=== PATIENT | male | born 2000 | race African-American/Black ===

== ENCOUNTER 2023-01-01 08:04 | Inpatient (IN) ==
[2023-01-01] MEDS ORDERED: ONDANSETRON INJ 2 MG/ML 2 ML VIAL IV STA (08:20)
[2023-01-01] MEDS ORDERED: MoRPHine SULFATE 4 MG/ML 1 ML CARP\\VIAL IV STA (08:20)
--- NOTE | 2023-01-01 08:20 | Emergency Department Note ---
History of Present Illness General Chief complaint: Abdominal Pain Stated complaint: PAIN LOWER L ABDOMIN Time Seen by Provider: 01/01/23 08:14 History of Present Illness Maximum Pain Intensity: 6 This is a 22-year-old male with a history of sickle cell disease that presents to the emergency department via private vehicle with complaints of "left upper quadrant abdominal pain". The patient notes he began with abdominal pain yesterday. No known trauma or injury. No history of abdominal surgeries. Patient denies any fevers or chills. He does note some minor discomfort to the chest area. No shortness of breath. Patient notes that generally he will experience discomfort in his joints/extremities but has never had abdominal pain. Current pain 6-7/10 when he sits up and about a 3-4/10 when he is lying on his side. Patient does note he previously has followed with hematology at [facility] in the [place] area. Home Medications Medication Instructions Recorded Confirmed Type oxycodone 5 mg tablet 5 - 10 mg PO Q4H PRN pain #14 tabs 06/19/22 01/01/23 Rx albuterol sulfate 90 mcg/actuation 2 puff inhalation Q6H PRN 01/01/23 01/01/23 History aerosol inhaler Shortness Of Breath Or Wheezing fluticasone propionate 50 2 spray intranasal DAILY PRN 01/01/23 01/01/23 History mcg/actuation nasal allergies spray,suspension folic acid 1 mg tablet 1 mg PO DAILY 01/01/23 01/01/23 History methylphenidate HCl 10 mg tablet 10 mg PO UD 01/01/23 01/01/23 History methylphenidate HCl 36 mg 36 mg PO UD 01/01/23 01/01/23 History tablet,extended release 24 hr montelukast 10 mg tablet 10 mg PO DAILY 01/01/23 01/01/23 History Allergies Allergy/AdvReac Type Severity Reaction Status Date / Time No Known Allergies Allergy Unverified 01/01/23 09:58 Past Med/Surg History Medical History Asthma Sickle cell disease Surgical History (Updated 01/01/23 @ 15:21 by Janis Cota PA-C) No pertinent past surgical history Family History Other Deep vein thrombosis Social History Smoking Status: Never smoker Hx Alcohol Use: Yes Alcohol type: hard liquor Alcohol Intake Frequency: 2-4 x/Month Hx Substance Use: No Preferred Language: Maltese Ham Facer Required: No Beliefs That Will Affect Care: None Current Living Situation: Other current occupational status: student Feels Safe at Home: Yes Safety Concerns: Feels Safe At This Time Assistive Devices: Glasses Review of Systems A total of 10 systems reviewed and were otherwise negative Physical Exam Vital Signs Vital Signs - 24 hr 01/01/23 08:09 01/01/23 08:57 01/01/23 08:57 Temperature 37.5 C Temperature Source Temporal Artery Scan Pulse Rate 107 H 87 Pulse Rate [Apical] 87 Pulse Rate from SpO2 Sensor Pulse Rhythm [Apical] Pulse Strength [Apical] Respiratory Rate 18 22 22 Respiratory Effort / Characteristics Non-Labored Non-Labored Spontaneous Respiratory Depth Normal Normal Respiratory Pattern Regular Blood Pressure 129/70 Blood Pressure [Right Arm] 141/90 H Blood Pressure Mean 89 Blood Pressure Mean [Right Arm] 107 Blood Pressure Position [Right Arm] Sitting Pulse Oximetry 96 92 92 Oxygen Delivery Method Room Air Room Air Room Air Sepsis Recent Fever Within 48 Hours No Sepsis New/Unexplained Change in Mental Status No Sepsis Action Taken by Nursing No Action Required 01/01/23 09:12 01/01/23 09:01 01/01/23 09:30 Temperature Temperature Source Pulse Rate 84 84 Pulse Rate [Apical] Pulse Rate from SpO2 Sensor 85 Pulse Rhythm [Apical] Pulse Strength [Apical] Respiratory Rate 18 Respiratory Effort / Characteristics Respiratory Depth Respiratory Pattern Blood Pressure 119/68 Blood Pressure [Right Arm] Blood Pressure Mean 85 Blood Pressure Mean [Right Arm] Blood Pressure Position [Right Arm] Pulse Oximetry 95 Oxygen Delivery Method Sepsis Recent Fever Within 48 Hours Sepsis New/Unexplained Change in Mental Status Sepsis Action Taken by Nursing 01/01/23 09:30 01/01/23 10:00 01/01/23 10:00 Temperature Temperature Source Pulse Rate 87 95 H Pulse Rate [Apical] Pulse Rate from SpO2 Sensor 88 97 H Pulse Rhythm [Apical] Pulse Strength [Apical] Respiratory Rate 14 16 Respiratory Effort / Characteristics Respiratory Depth Respiratory Pattern Blood Pressure 128/86 Blood Pressure [Right Arm] Blood Pressure Mean 100 Blood Pressure Mean [Right Arm] Blood Pressure Position [Right Arm] Pulse Oximetry 93 95 Oxygen Delivery Method Sepsis Recent Fever Within 48 Hours Sepsis New/Unexplained Change in Mental Status Sepsis Action Taken by Nursing 01/01/23 11:13 01/01/23 10:10 01/01/23 10:20 Temperature 36.8 C Temperature Source Oral Pulse Rate 90 99 H Pulse Rate [Apical] 90 Pulse Rate from SpO2 Sensor 88 101 H Pulse Rhythm [Apical] Regular Pulse Strength [Apical] Normal Respiratory Rate 19 21 16 Respiratory Effort / Characteristics Non-Labored Spontaneous Respiratory Depth Normal Respiratory Pattern Regular Blood Pressure Blood Pressure [Right Arm] 123/84 Blood Pressure Mean Blood Pressure Mean [Right Arm] 97 Blood Pressure Position [Right Arm] Lying Pulse Oximetry 98 94 96 Oxygen Delivery Method Room Air Sepsis Recent Fever Within 48 Hours Sepsis New/Unexplained Change in Mental Status Sepsis Action Taken by Nursing 01/01/23 10:41 01/01/23 10:50 01/01/23 11:00 Temperature Temperature Source Pulse Rate 100 H 87 87 Pulse Rate [Apical] Pulse Rate from SpO2 Sensor 102 H 87 87 Pulse Rhythm [Apical] Pulse Strength [Apical] Respiratory Rate 14 21 28 H Respiratory Effort / Characteristics Respiratory Depth Respiratory Pattern Blood Pressure Blood Pressure [Right Arm] Blood Pressure Mean Blood Pressure Mean [Right Arm] Blood Pressure Position [Right Arm] Pulse Oximetry 98 96 97 Oxygen Delivery Method Sepsis Recent Fever Within 48 Hours Sepsis New/Unexplained Change in Mental Status Sepsis Action Taken by Nursing 01/01/23 11:10 01/01/23 11:18 01/01/23 11:18 Temperature Temperature Source Pulse Rate 88 89 Pulse Rate [Apical] Pulse Rate from SpO2 Sensor 91 H Pulse Rhythm [Apical] Pulse Strength [Apical] Respiratory Rate 15 15 Respiratory Effort / Characteristics Respiratory Depth Respiratory Pattern Blood Pressure 123/84 Blood Pressure [Right Arm] Blood Pressure Mean 97 Blood Pressure Mean [Right Arm] Blood Pressure Position [Right Arm] Pulse Oximetry 98 Oxygen Delivery Method Sepsis Recent Fever Within 48 Hours Sepsis New/Unexplained Change in Mental Status Sepsis Action Taken by Nursing 01/01/23 11:20 01/01/23 11:30 01/01/23 11:30 Temperature Temperature Source Pulse Rate 85 84 Pulse Rate [Apical] Pulse Rate from SpO2 Sensor 86 85 Pulse Rhythm [Apical] Pulse Strength [Apical] Respiratory Rate 18 22 Respiratory Effort / Characteristics Respiratory Depth Respiratory Pattern Blood Pressure 132/92 Blood Pressure [Right Arm] Blood Pressure Mean 105 Blood Pressure Mean [Right Arm] Blood Pressure Position [Right Arm] Pulse Oximetry 94 94 Oxygen Delivery Method Sepsis Recent Fever Within 48 Hours Sepsis New/Unexplained Change in Mental Status Sepsis Action Taken by Nursing 01/01/23 11:40 01/01/23 11:50 01/01/23 12:00 Temperature Temperature Source Pulse Rate 87 81 Pulse Rate [Apical] Pulse Rate from SpO2 Sensor 87 83 Pulse Rhythm [Apical] Pulse Strength [Apical] Respiratory Rate 16 Respiratory Effort / Characteristics Respiratory Depth Respiratory Pattern Blood Pressure 128/88 Blood Pressure [Right Arm] Blood Pressure Mean 101 Blood Pressure Mean [Right Arm] Blood Pressure Position [Right Arm] Pulse Oximetry 96 95 Oxygen Delivery Method Sepsis Recent Fever Within 48 Hours Sepsis New/Unexplained Change in Mental Status Sepsis Action Taken by Nursing 01/01/23 12:00 01/01/23 12:10 01/01/23 12:20 Temperature Temperature Source Pulse Rate 85 85 83 Pulse Rate [Apical] Pulse Rate from SpO2 Sensor 86 84 Pulse Rhythm [Apical] Pulse Strength [Apical] Respiratory Rate Respiratory Effort / Characteristics Respiratory Depth Respiratory Pattern Blood Pressure Blood Pressure [Right Arm] Blood Pressure Mean Blood Pressure Mean [Right Arm] Blood Pressure Position [Right Arm] Pulse Oximetry 96 95 Oxygen Delivery Method Sepsis Recent Fever Within 48 Hours Sepsis New/Unexplained Change in Mental Status Sepsis Action Taken by Nursing 01/01/23 12:30 01/01/23 12:30 01/01/23 12:40 Temperature Temperature Source Pulse Rate 97 H 88 Pulse Rate [Apical] Pulse Rate from SpO2 Sensor Pulse Rhythm [Apical] Pulse Strength [Apical] Respiratory Rate 23 24 Respiratory Effort / Characteristics Respiratory Depth Respiratory Pattern Blood Pressure 116/68 Blood Pressure [Right Arm] Blood Pressure Mean 84 Blood Pressure Mean [Right Arm] Blood Pressure Position [Right Arm] Pulse Oximetry Oxygen Delivery Method Sepsis Recent Fever Within 48 Hours Sepsis New/Unexplained Change in Mental Status Sepsis Action Taken by Nursing 01/01/23 12:50 01/01/23 13:00 01/01/23 13:00 Temperature Temperature Source Pulse Rate 90 94 H Pulse Rate [Apical] Pulse Rate from SpO2 Sensor Pulse Rhythm [Apical] Pulse Strength [Apical] Respiratory Rate 27 H 22 Respiratory Effort / Characteristics Respiratory Depth Respiratory Pattern Blood Pressure 134/93 Blood Pressure [Right Arm] Blood Pressure Mean 106 Blood Pressure Mean [Right Arm] Blood Pressure Position [Right Arm] Pulse Oximetry Oxygen Delivery Method Sepsis Recent Fever Within 48 Hours Sepsis New/Unexplained Change in Mental Status Sepsis Action Taken by Nursing 01/01/23 13:20 Temperature Temperature Source Pulse Rate 95 H Pulse Rate [Apical] Pulse Rate from SpO2 Sensor 95 H Pulse Rhythm [Apical] Pulse Strength [Apical] Respiratory Rate 21 Respiratory Effort / Characteristics Respiratory Depth Respiratory Pattern Blood Pressure Blood Pressure [Right Arm] Blood Pressure Mean Blood Pressure Mean [Right Arm] Blood Pressure Position [Right Arm] Pulse Oximetry 97 Oxygen Delivery Method Sepsis Recent Fever Within 48 Hours Sepsis New/Unexplained Change in Mental Status Sepsis Action Taken by Nursing VITAL SIGNS - Vital signs and triage nursing notes were reviewed. Stable and afebrile. GENERAL -22-year-old male appearing his stated age who is in no acute distress. Communicates well with provider and answers questions appropriately. SKIN - Without rashes. No meningeal or petechial rash. HEAD - NC/AT. EYES - PERRL with EOMI bilaterally. Sclera anicteric. EARS - No deformities of external structures noted on gross examination bilaterally. NOSE - Midline and without cyanosis. No epistaxis or purulent drainage noted. MOUTH/OROPHARYNX - Without perioral cyanosis. NECK - Neck with FROM. No nuchal rigidity. LUNGS - Chest wall symmetric without accessory muscle use, intercostals retractions, or central cyanosis. Normal vesicular breath sounds CTA B/L. No wheezes, rales, or rhonchi appreciated. CARDIAC - RRR with S1/S2. No murmur, rubs, or gallops appreciated. ABDOMEN - Abdominal contour normal without pulsations or visible masses. BS normoactive all four quadrants. No tenderness, palpable masses, hepatosplenomegaly, or ascites noted. No guarding or rigidity EXTREMITIES - No clubbing or peripheral cyanosis. +5/5 strength noted in UE/LE bilaterally. NEUROLOGIC - Cranial nerves II through XII grossly intact. PSYCH - A&Ox, and cooperates fully with examiner. Pt is very pleasant and interacts well with examiner. Course Administered Medications Acetaminophen (Acetaminophen 325 Mg Tab) 650 mg PO Q4H PRN PRN Reason: Pain or Fever Stop: 01/31/23 15:11 Last Admin: 01/01/23 22:23 Dose: 650 mg Documented By: Admin: 01/01/23 15:32 Dose: 650 mg Documented By: [id number] Enoxaparin Sodium (Enoxaparin Inj 40 Mg/0.4 Ml Syr) 40 mg SQ Q24H STERLING Stop: 01/31/23 16:59 Last Admin: 01/01/23 18:34 Dose: 40 mg Documented By: [id number] Fluticasone Propionate (Fluticasone Propionate Na Spr 16 Gm Btl) 2 sprays ARABELLA DAILY PRN PRN Reason: allergies Stop: 01/31/23 15:46 Last Admin: 01/01/23 20:26 Dose: 2 sprays Documented By: ALYSSA Guaifenesin/Dextromethorphan (Guaifenesin/Dextrom Syrup 100mg/10mg 5ml Udc) 10 ml PO Q8 PRN PRN Reason: Cough Stop: 01/31/23 19:05 Last Admin: 01/01/23 20:05 Dose: 10 ml Documented By: ALYSSA Ketorolac Tromethamine (Ketorolac Tromethamine 15 Mg/Ml Vial) 15 mg IV Q6H PRN PRN Reason: Pain Stop: 01/03/23 15:46 Last Admin: 01/01/23 16:18 Dose: 15 mg Documented By: [id number] Oxycodone HCl (Oxycodone Hcl Ir 5 Mg Tab (Immediate Release)) 5 mg PO Q6H PRN PRN Reason: Severe Pain (Scale 7, 8, 9,10) Stop: 01/15/23 15:46 Last Admin: 01/01/23 20:08 Dose: 5 mg Documented By: ALYSSA Discontinued Medications Hydromorphone HCl (Hydromorphone Inj 0.5 Mg/0.5 Ml Syr) 0.5 mg IV NOW STA Stop: 01/01/23 10:15 Last Admin: 01/01/23 10:22 Dose: 0.5 mg Documented By: NDW Sodium Chloride (1/2 Nss) 1,000 mls @ 80 mls/hr IV .[id number] ST[place]LING Stop: 01/31/23 09:44 Last Infusion: 01/01/23 15:53 Dose: 0 mls/hr Documented By: [id number] Infusion: 01/01/23 13:26 Dose: 80 mls/hr Documented By: Admin: 01/01/23 10:05 Dose: 80 mls/hr Documented By: KJS Sodium Chloride (Nss 1000ml) 1,000 mls @ 999 mls/hr IV .Q1H1M ONE Stop: 01/01/23 14:12 Last Infusion: 01/01/23 14:35 Dose: 0 mls/hr Documented By: Admin: 01/01/23 13:26 Dose: 999 mls/hr Documented By: TYREE Sodium Chloride (Nss 1000ml) 1,000 mls @ 100 mls/hr IV .Q10H ST[place]ING Stop: 01/02/23 01:59 Last Infusion: 01/01/23 20:54 Dose: 0 mls/hr Documented By: Admin: 01/01/23 16:12 Dose: 100 mls/hr Documented By: [id number] Ioversol (Optiray 350 100ml) 87 ml IV ONCE ONE Stop: 01/01/23 10:35 Last Admin: 01/01/23 10:37 Dose: 87 ml Documented By: NOY Morphine Sulfate (Morphine Sulfate 4 Mg/Ml 1 Ml Carp\\Vial) 4 mg IV NOW STA Stop: 01/01/23 08:21 Last Admin: 01/01/23 08:44 Dose: 4 mg Documented By: DAVI Ondansetron HCl (Ondansetron Inj 2 Mg/Ml 2 Ml Vial) 4 mg IV NOW STA Stop: 01/01/23 08:21 Last Admin: 01/01/23 08:44 Dose: 4 mg Documented By: DAVI Oxycodone HCl (Oxycodone Hcl Ir 5 Mg Tab (Immediate Release)) 5 mg PO NOW STA Stop: 01/01/23 12:52 Last Admin: 01/01/23 13:02 Dose: 5 mg Documented By: TYREE Medical Decision Making Laboratory Data 01/01/23 16:27 01/01/23 14:43 Lab Results 01/01/23 01/01/23 01/01/23 Range/Units 08:45 08:45 08:45 WBC 9.30 (4.8-10.8) K/ul RBC 4.72 (4.70-6.10) M/uL Hgb 12.2 L (14.0-18.0) g/dl Hct 33.2 L (42.0-52.0) % MCV 70.3 L (80.0-100.0) fL MCH 25.8 (25.0-34.0) pg MCHC 36.7 H (32.0-36.0) g/dL RDW Std Deviation 43.3 (36.4-46.3) fL RDW Coeff of Wendi 17.2 H (11.5-14.5) % Plt Count 127 L (130-400) K/uL MPV 10.2 (9.4-12.4) fL Immature Gran % (Auto) 0.5 % Neut % (Auto) 81.5 % Lymph % (Auto) 8.4 % Morrill % (Auto) 9.1 % Eos % (Auto) 0.2 % Baso % (Auto) 0.3 % Reticulocyte % (Auto) 3.2 H (0.5-2.0) % Neut # (Auto) 7.57 H (1.40-6.50) K/uL Lymph # (Auto) 0.78 L (1.2-3.4) K/uL Morrill # (Auto) 0.85 H (0.11-0.59) K/uL Eos # (Auto) 0.02 (0-0.50) K/uL Baso # (Auto) 0.03 (0-0.2) K/uL Reticulocyte # 0.15 H (0.02-0.10) 10^6/uL Immature Gran # (Auto) 0.05 (0.01-0.20) K/uL PT 11.8 (9.0-12.0) Seconds INR 1.1 (0.9-1.1) APTT 33.6 H (21.0-31.0) Seconds PTT Ratio 1.2 Sodium 135 L (136-145) mmol/L Potassium 4.0 (3.5-5.1) mmol/L Chloride 102 (98-107) mmol/L Carbon Dioxide 28 (21-32) mmol/L Anion Gap 5 (3-11) BUN 9 (6-23) mg/dl Creatinine 0.84 (0.6-1.4) mg/dl Est Cr Clr Drug Dosing 139.1 ml/min Est GFR ( Amer) 145.1 ml/min Est GFR (Non-Af Amer) 125.2 ml/min BUN/Creatinine Ratio 10.7 (10-20) Glucose 115 H (70-99(Fasting)) mg/dl Lactate (0.4-2.0) mmol/L Calcium 9.3 (8.6-10.3) mg/dl Magnesium 2.0 (1.7-2.4) mg/dl Total Bilirubin 1.9 H (0.2-1.0) mg/dl AST 52 H (13-39) U/L ALT 26 (7-52) U/L Alkaline Phosphatase 40 (34-104) U/L Total Creatine Kinase 294 H (30-223) U/L Troponin I High Sens 4.0 (0-20) pg/ml Total Protein 7.3 (6.0-8.3) gm/dl Albumin 4.6 (3.4-5.0) gm/dl Globulin 2.7 (2.5-4.0) gm/dl Albumin/Globulin Ratio 1.7 (0.9-2) Lipase 221 H (11-82) U/L Procalcitonin (0-0.5) ng/ml Urine Color Urine Appearance (Clear) Urine pH (4.5-7.5) Ur Specific [place] (1.000-1.030) Urine Protein (Negative) Urine Glucose (UA) (Negative) Urine Ketones (Negative) Urine Blood (Negative) Urine Nitrite (Negative) Urine Bilirubin (Negative) Urine Urobilinogen (Negative) Ur Leukocyte Esterase (Negative) Urine WBC (Auto) (0-5) /hpf Urine RBC (Auto) (0-4) /hpf U Hyaline Cast (Auto) (0-5) /lpf U Epithel Cells (Auto) (0-5) /lpf Urine Bacteria (Auto) (Negative) Monoscreen (Negative) SARS-CoV-2, RNA, NAAT (NEGATIVE) 01/01/23 01/01/23 01/01/23 Range/Units 08:45 08:45 08:45 WBC (4.8-10.8) K/ul RBC (4.70-6.10) M/uL Hgb (14.0-18.0) g/dl Hct (42.0-52.0) % MCV (80.0-100.0) fL MCH (25.0-34.0) pg MCHC (32.0-36.0) g/dL RDW Std Deviation (36.4-46.3) fL RDW Coeff of Wendi (11.5-14.5) % Plt Count (130-400) K/uL MPV (9.4-12.4) fL Immature Gran % (Auto) % Neut % (Auto) % Lymph % (Auto) % Morrill % (Auto) % Eos % (Auto) % Baso % (Auto) % Reticulocyte % (Auto) Cancelled (0.5-2.0) % Neut # (Auto) (1.40-6.50) K/uL Lymph # (Auto) (1.2-3.4) K/uL Morrill # (Auto) (0.11-0.59) K/uL Eos # (Auto) (0-0.50) K/uL Baso # (Auto) (0-0.2) K/uL Reticulocyte # Cancelled (0.02-0.10) 10^6/uL Immature Gran # (Auto) (0.01-0.20) K/uL PT (9.0-12.0) Seconds INR (0.9-1.1) APTT (21.0-31.0) Seconds PTT Ratio Sodium (136-145) mmol/L Potassium (3.5-5.1) mmol/L Chloride (98-107) mmol/L Carbon Dioxide (21-32) mmol/L Anion Gap (3-11) BUN (6-23) mg/dl Creatinine (0.6-1.4) mg/dl Est Cr Clr Drug Dosing ml/min Est GFR ( Amer) ml/min Est GFR (Non-Af Amer) ml/min BUN/Creatinine Ratio (10-20) Glucose (70-99(Fasting)) mg/dl Lactate 0.7 (0.4-2.0) mmol/L Calcium (8.6-10.3) mg/dl Magnesium (1.7-2.4) mg/dl Total Bilirubin (0.2-1.0) mg/dl AST (13-39) U/L ALT (7-52) U/L Alkaline Phosphatase (34-104) U/L Total Creatine Kinase (30-223) U/L Troponin I High Sens (0-20) pg/ml Total Protein (6.0-8.3) gm/dl Albumin (3.4-5.0) gm/dl Globulin (2.5-4.0) gm/dl Albumin/Globulin Ratio (0.9-2) Lipase (11-82) U/L Procalcitonin 0.43 (0-0.5) ng/ml Urine Color Urine Appearance (Clear) Urine pH (4.5-7.5) Ur Specific [place]burn (1.000-1.030) Urine Protein (Negative) Urine Glucose (UA) (Negative) Urine Ketones (Negative) Urine Blood (Negative) Urine Nitrite (Negative) Urine Bilirubin (Negative) Urine Urobilinogen (Negative) Ur Leukocyte Esterase (Negative) Urine WBC (Auto) (0-5) /hpf Urine RBC (Auto) (0-4) /hpf U Hyaline Cast (Auto) (0-5) /lpf U Epithel Cells (Auto) (0-5) /lpf Urine Bacteria (Auto) (Negative) Monoscreen (Negative) SARS-CoV-2, RNA, NAAT (NEGATIVE) 01/01/23 01/01/23 01/01/23 Range/Units 08:45 08:45 11:21 WBC (4.8-10.8) K/ul RBC (4.70-6.10) M/uL Hgb (14.0-18.0) g/dl Hct (42.0-52.0) % MCV (80.0-100.0) fL MCH (25.0-34.0) pg MCHC (32.0-36.0) g/dL RDW Std Deviation (36.4-46.3) fL RDW Coeff of Wendi (11.5-14.5) % Plt Count (130-400) K/uL MPV (9.4-12.4) fL Immature Gran % (Auto) % Neut % (Auto) % Lymph % (Auto) % Morrill % (Auto) % Eos % (Auto) % Baso % (Auto) % Reticulocyte % (Auto) (0.5-2.0) % Neut # (Auto) (1.40-6.50) K/uL Lymph # (Auto) (1.2-3.4) K/uL Morrill # (Auto) (0.11-0.59) K/uL Eos # (Auto) (0-0.50) K/uL Baso # (Auto) (0-0.2) K/uL Reticulocyte # (0.02-0.10) 10^6/uL Immature Gran # (Auto) (0.01-0.20) K/uL PT (9.0-12.0) Seconds INR (0.9-1.1) APTT (21.0-31.0) Seconds PTT Ratio Sodium (136-145) mmol/L Potassium (3.5-5.1) mmol/L Chloride (98-107) mmol/L Carbon Dioxide (21-32) mmol/L Anion Gap (3-11) BUN (6-23) mg/dl Creatinine (0.6-1.4) mg/dl Est Cr Clr Drug Dosing ml/min Est GFR ( Amer) ml/min Est GFR (Non-Af Amer) ml/min BUN/Creatinine Ratio (10-20) Glucose (70-99(Fasting)) mg/dl Lactate (0.4-2.0) mmol/L Calcium (8.6-10.3) mg/dl Magnesium (1.7-2.4) mg/dl Total Bilirubin (0.2-1.0) mg/dl AST (13-39) U/L ALT (7-52) U/L Alkaline Phosphatase (34-104) U/L Total Creatine Kinase (30-223) U/L Troponin I High Sens (0-20) pg/ml Total Protein (6.0-8.3) gm/dl Albumin (3.4-5.0) gm/dl Globulin (2.5-4.0) gm/dl Albumin/Globulin Ratio (0.9-2) Lipase (11-82) U/L Procalcitonin (0-0.5) ng/ml Urine Color Dark Yellow Urine Appearance Clear (Clear) Urine pH 6.5 (4.5-7.5) Ur Specific [place] 1.011 (1.000-1.030) Urine Protein Trace H (Negative) Urine Glucose (UA) Negative (Negative) Urine Ketones Negative (Negative) Urine Blood Negative (Negative) Urine Nitrite Negative (Negative) Urine Bilirubin Negative (Negative) Urine Urobilinogen Positive H (Negative) Ur Leukocyte Esterase Negative (Negative) Urine WBC (Auto) 1-5 (0-5) /hpf Urine RBC (Auto) 0-4 (0-4) /hpf U Hyaline Cast (Auto) 0 (0-5) /lpf U Epithel Cells (Auto) 0-5 (0-5) /lpf Urine Bacteria (Auto) Negative (Negative) Monoscreen Negative (Negative) SARS-CoV-2, RNA, NAAT NEGATIVE (NEGATIVE) Imaging Data Radiologist's Impression: Abdomen/Pelvis CT 01/01/23 08:28 CT abd pelvis IV con only CLINICAL HISTORY: LUQ abd pain TECHNIQUE: Helical axial images of the abdomen and pelvis were obtained and displayed. Automated dose lowering techniques and/or adjustment according to patient size were utilized for this exam. This exam was performed with intravenous contrast. CT DOSE: 390.38 mGy.cm COMPARISON: None available at the time of this dictation. FINDINGS: Lower chest: No acute abnormality. Liver: Unremarkable. No focal lesions are seen. Gallbladder and biliary tree: No calcified gallstones. Normal caliber wall. No intra- or extrahepatic biliary ductal dilation. Pancreas: Unremarkable, no focal lesions. Spleen: Splenomegaly measures 21.3 cm. Heterogeneity of the spleen is seen. Adrenals: Unremarkable. Kidneys and ureters: Subcentimeter hypodensities are too small to characterize. Bladder: Unremarkable. Reproductive organs: Unremarkable. Bowel: The appendix is normal. Lymph nodes Retroperitoneal: Unremarkable. Pelvic: Unremarkable. Mesenteric: Subcentimeter lymph nodes are noted. Peritoneum: Normal. Vessels: Unremarkable. Abdominal wall: Unremarkable. Bones: Unremarkable. 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 Otherwise no acute abnormalities are seen. ACT 112: Negative or not required by law. Electronically signed by: Rick Mckeon M.D. 01/01/2023 11:04 AM Chest X-Ray 01/01/23 11:04 XR chest 1V portable CLINICAL HISTORY: LUQ abd pain TECHNIQUE: Single frontal radiograph of the chest was obtained. Comparison: None available at the time of this dictation. FINDINGS: No lines and tubes are seen. The cardiomediastinal silhouette is normal. The lungs are clear. No evidence of pleural effusion or pneumothorax. IMPRESSION: No acute chest disease. ACT 112: Negative or not required by law. Electronically signed by: Rick Mckeon M.D. 01/01/2023 11:20 AM [facility] Narrative Patient was seen and evaluated as above in room C02. Review was performed of triage nursing notes and vital signs. I did review pertinent previous visits and patient history. After obtaining a thorough history and physical examination the above work up was performed. Patient presents to us today for assessment of le ft upper quadrant abdominal pain in the setting of history of sickle cell disease. Patient does appear to be in pain. There is no reproducible abdominal tenderness. Overall abdominal exam is benign. Options of care were discussed with the patient. IV access was established. Labs were drawn. Patient was medicated with IV analgesia and IV antiemetics. Patient appears to be euvolemic and was started at a maintenance rate of half- normal saline noting the history of SCD and presentation here today. I did review this with our clinical pharmacist and at this time this is felt to be the most appropriate hydrating method at the present time. Labs reveal no leukocytosis. Minor anemia noted. Reticulocyte count is 0.15. Mild hyponatremia. No emergent metabolic disturbance. Mild elevation of AST at 52 and T. bili at 1.9. Total CK mildly elevated at 294. Lipase mildly elevated at 221. Pro-Ruy 0.43. Urinalysis does not suggest infection. COVID test negative. CT scan was obtained of the abdomen/pelvis noting area of discomfort. Results as above. 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 Chest x-ray negative. At this time I do believe that further evaluation and management is warranted in the inpatient setting. Case discussed with the hospitalist service. Please refer to further documentation regarding his stay. Patient amenable to plan of care. Case was discussed with the attending physician. GCS: 15 In the evaluation and treatment of this patient the following differential diagnoses were entertained: Acute vaso-occlusive crisis, splenic rupture, pancreatitis, acute cholecystitis, ascending cholangitis, infectious etiology, dissection, among others. Impression & Plan Sickle cell disease, Splenic sequestration, LUQ pain Discharge Plan Visit Data Chief Complaint: Abdominal Pain Stated Complaint: PAIN LOWER L ABDOMIN ED Provider: Apolinar Olmedo ED Midlevel Provider: Kwasi Ojeda Discharge Problem: Sickle cell disease, Splenic sequestration, LUQ pain Patient Disposition: Admitted As Inpatient Condition: Good Discharge Instructions Interventions: ED Discharge Assessment Last Done: 01/01/23 14:34
[2023-01-01 09:31] LABS: Basophils # (auto) 0.03 K/uL (0-0.2); Basophils % (auto) 0.3 %; Eosinophils # (auto) 0.02 K/uL (0-0.50); Eosinophils % (auto) 0.2 %; Hematocrit (blood only) 33.2 % (42.0-52.0); Hemoglobin 12.2 g/dl (14.0-18.0); Immature Granulocytes # (auto) 0.05 K/uL (0.01-0.20); Immature Granulocytes % (auto) 0.5 %; Lymphocytes # (auto) 0.78 K/uL (1.2-3.4); Lymphocytes % (auto) 8.4 %; Mean Corpuscular Hemoglobin 25.8 pg (25.0-34.0); Mean Corpuscular Hgb Conc 36.7 g/dL (32.0-36.0); Mean Corpuscular Volume 70.3 fL (80.0-100.0); Mean Platelet Volume 10.2 fL (9.4-12.4); Monocytes # (auto) 0.85 K/uL (0.11-0.59); Monocytes % (auto) 9.1 %; Neutrophils # (auto) 7.57 K/uL (1.40-6.50); Neutrophils % (auto) 81.5 %; Platelet Count 127 K/uL (130-400); RDW Coefficient of Variation 17.2 % (11.5-14.5); RDW Standard Deviation 43.3 fL (36.4-46.3); Red Blood Count 4.72 M/uL (4.70-6.10); Reticulocyte % 3.2 % (0.5-2.0); Reticulocytes # 0.15 10^6/uL (0.02-0.10)
[2023-01-01 09:34] LABS: Appearance Urine Clear (Clear); Bacteria Urine Automated Negative (Negative); Bilirubin Urine Negative (Negative); Blood Urine Negative (Negative); Cast Urine Automated 0 /lpf (0-5); Color Urine Dark Yellow; Epithelial Cell Urine Auto 0-5 /lpf (0-5); Glucose Urine UA Negative (Negative); Ketones Urine Negative (Negative); Leukocyte Esterase Urine Negative (Negative); Nitrite Urine Negative (Negative); Protein Urine Trace (Negative); RBC Urine Automated 0-4 /hpf (0-4); Specific Gravity Urine 1.011 (1.000-1.030); Urobilinogen Urine Positive (Negative); pH Urine 6.5 (4.5-7.5)
[2023-01-01 09:35] LABS: Albumin Level 4.6 gm/dl (3.4-5.0); Bilirubin,Total 1.9 mg/dl (0.2-1.0); Calcium 9.3 mg/dl (8.6-10.3)
[2023-01-01 09:41] LABS: Albumin Globulin Ratio 1.7 (0.9-2); BUN Creatinine Ratio 10.7 (10-20); Creatinine Clr Calc Pharmacy 139.1 ml/min; Est GFR (African American) 145.1 ml/min; Est GFR (Non-African American) 125.2 ml/min; Globulin 2.7 gm/dl (2.5-4.0); Total Protein 7.3 gm/dl (6.0-8.3)
[2023-01-01] MEDS ORDERED: SODIUM CHLORIDE 0.45 % 1,000 ML IV SCH (09:45)
[2023-01-01 09:50] LABS: INR 1.1 (0.9-1.1); Partial Thromboplastin Ratio 1.2; Partial Thromboplastin Time 33.6 Seconds (21.0-31.0); Prothrombin Time 11.8 Seconds (9.0-12.0)
[2023-01-01] MEDS ORDERED: HYDROmorphone INJ 0.5 MG/0.5 ML SYR IV STA (10:14)
[2023-01-01] MEDS ORDERED: OPTIRAY 350 100ml IV ONE (10:34)
--- NOTE | 2023-01-01 11:06 | CT Scan Report ---
CT abd pelvis IV con only CLINICAL HISTORY: LUQ abd pain TECHNIQUE: Helical axial images of the abdomen and pelvis were obtained and displayed. Automated dose lowering techniques and/or adjustment according to patient size were utilized for this exam. This e xam was performed with intravenous contrast. CT DOSE: 390.38 mGy.cm COMPARISON: None available at the time of this dictation. FINDINGS: Lower chest: No acute abnormality. Liver: Unremarkable. No focal lesions are seen. Gallbladder and biliary tree: No calcified gallstones. Normal caliber wall. No intra- or extrahepatic biliary ductal dilation. Pancreas: Unremarkable, no focal lesions. Spleen: Splenomegaly measures 21.3 cm. Heterogeneity of the spleen is seen. Adrenals: Unremarkable. Kidneys and ureters: Subcentimeter hypodensities are too small to characterize. Bladder: Unremarkable. Reproductive organs: Unremarkable. Bowel: The appendix is normal. Lymph nodes Retroperitoneal: Unremarkable. Pelvic: Unremarkable. Mesenteric: Subcentimeter lymph nodes are noted. Peritoneum: Normal. Vessels: Unremarkable. Abdominal wall: Unremarkable. Bones: Unremarkable. 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 Otherwise no acute abnormalities are seen. ACT 112: Negative or not required by law. Electronically signed by: Rick Mckeon M.D. 01/01/2023 11:04 AM
--- NOTE | 2023-01-01 11:19 | Electrocardiogram Report ---
Test Reason : Blood Pressure : / mmHG Vent. Rate : 088 BPM Atrial Rate : 088 BPM P-R Int : 124 ms QRS Dur : 096 ms QT Int : 344 ms P-R-T Axes : 063 030 007 degrees QTc Int : 416 ms Normal sinus rhythm Normal ECG No previous ECGs available Confirmed by Blake Ferreira ([id number]) on 01/01/2023 11:19:10 AM Referred By: REFERRED SELF Confirmed By:Blake Ferreira
--- NOTE | 2023-01-01 11:23 | XRay Report ---
XR chest 1V portable CLINICAL HISTORY: LUQ abd pain TECHNIQUE: Single frontal radiograph of the chest was obtained. Comparison: None available at the time of this dictation. FINDINGS: No lines and tubes are seen. The cardiomediastinal silhouette is normal. The lungs are clear. No evid ence of pleural effusion or pneumothorax. IMPRESSION: No acute chest disease. ACT 112: Negative or not required by law. Electronically signed by: Rick Mckeon M.D. 01/01/2023 11:20 AM
--- NOTE | 2023-01-01 12:06 | History & Physical Report ---
Date of Service January 01, 2023 Assessment & Plan (1) Sickle cell disease: (2) LUQ pain: (3) Nausea and vomiting: (4) Splenic sequestration: (5) URI (upper respiratory infection): (6) Asthma: Plan This is a 22-year-old male with PMH of sickle cell type SC, asthma who presents to the ED with nausea, vomiting and left-sided abdominal pain since yesterday. 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 Otherwise no acute abnormalities are seen Discussed with Dr. Hidalgo of heme/onc - feels Sickle Cell is stable now but with possibility of splenic sequestration, need to be monitoring carefully for evidence of SC crisis (hypotension, hgb drop of >2g/dl) Obtaining LDH, haptoglobin and repeat CBC @ 1600 Discussed with [facility] heme onc provider publication editor, Dr. Cirilo Gordillo who agrees with plan, accepts patient for transfer if he were to clinically deteriorate and need higher level of care ([facility] heme onc office # ) Given 1 L NSS bolus given dry appearance on exam. Maintenance fluids, adv diet as tolerated Pail control with PRN home oxycodone, PRN toradol Antiemetics as needed (N/V improved since arrival) URI Asthma Recent viral symptoms, biofire with parainfluenza 3 PCR detected CXR without acute process Supportive care, PRN albuterol DVT Ppx: SQ lovenox Code status: FULL PCP: Desmond ([facility] pediatric[facility] in [place]) Dispo: Admit to PCU Patient seen in collaboration with Dr. Puga. Please see addendum. I spent a total of 85 minutes coordinating, documenting, and providing care for this patient excluding time spent in the performance of separately billed services. Updated patient's father Clif on the phone. Would appreciate daily updates @ [phone] History of Present Illness Chief Complaint: nausea, vomiting, abdominal pain Primary Care Provider: NO PCP This is a 22-year-old male with PMH of sickle cell type SC, asthma who presents to the ED with nausea, vomiting and left-sided abdominal pain since yesterday. 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 Has not seen a provider there in over a year but last received IV fluids at heme - onc clinic in November. Patient had cold symptoms of a sore throat and congestion last week that have for the most part resolved. Does still feel congested but no fever, chills or sore throat. Did have some pleuritic chest pain last week but that has resolved. Yesterday, noted constant sharp pain at the base of left lateral ribs that was painful to the point of making him feel nauseous with multiple bouts of vomiting. Was able to tolerate some fluids but has not eaten much since then. Denies any lightheadedness, visual changes, chest pain, shortness of breath, dysuria, diarrhea or constipation. Did take 1 home oxycodone this morning around 6 AM but pain persisted, so he presented to ED for further evaluation. Allergies Allergy/AdvReac Type Severity Reaction Status Date / Time No Known Allergies Allergy Unverified 01/01/23 09:58 Home Medications Medication Instructions Recorded Confirmed Type oxycodone 5 mg tablet 5 - 10 mg PO Q4H PRN pain #14 tabs 06/19/22 01/01/23 Rx albuterol sulfate 90 mcg/actuation 2 puff inhalation Q6H PRN 01/01/23 01/01/23 History aerosol inhaler Shortness Of Breath Or Wheezing fluticasone propionate 50 2 spray intranasal DAILY PRN 01/01/23 01/01/23 History mcg/actuation nasal allergies spray,suspension folic acid 1 mg tablet 1 mg PO DAILY 01/01/23 01/01/23 History methylphenidate HCl 10 mg tablet 10 mg PO UD 01/01/23 01/01/23 History methylphenidate HCl 36 mg 36 mg PO UD 01/01/23 01/01/23 History tablet,extended release 24 hr montelukast 10 mg tablet 10 mg PO DAILY 01/01/23 01/01/23 History Past Med/Surg History Medical History (Updated 01/01/23 @ 15:32 by Janis Cota PA-C) Asthma Sickle cell disease Surgical History (Updated 01/01/23 @ 15:21 by Janis Cota PA-C) No pertinent past surgical history Family History Other Deep vein thrombosis Social History (Updated 01/01/23 @ 15:25 by Janis Cota PA-C) Smoking Status: Never smoker Hx Alcohol Use: Yes Alcohol type: hard liquor Alcohol Intake Frequency: 2-4 x/Month Hx Substance Use: No Preferred Language: Korean Dinkey Brakeman Required: No Beliefs That Will Affect Care: None Current Living Situation: Other current occupational status: student Feels Safe at Home: Yes Safety Concerns: Feels Safe At This Time Assistive Devices: Glasses Review of Systems Review of Systems: At least ten systems reviewed and negative except as noted in the HPI. Physical Exam Physical Exam: General Appearance: WD/WN, vitals as above, NAD, sitting up in bed, appears uncomfortable, conversing without issue Head: normocephalic, atraumatic Eyes: normal inspection, PERRL, conjunctivae normal, anicteric sclerae ENT: external ear and nose normal, dry mucous membranes of oropharynx Neck: normal visual inspection, trachea midline, no thyromegaly Respiratory: diminished breath sounds with rhonchi, no wheezing or no rales. No accessory muscle use Cardiovascular: regular rate, rhythm, no murmur, normal peripheral pulses, no BLE edema. Vessels: no JVD Chest: normal inspection of chest Abdomen/GI: normal bowel sounds, soft, LUQ TTP, +splenomegaly Extremities/Musculoskeletal: no cyanosis or clubbing, extremities motor strength 5/5 Neurologic: PERRL, EOMI, accommodation nl, no face palsy, no dysarthria, CN's II-XI intact bilaterally and moves all extremities Psychiatric: A+Ox3, euthymic affect Skin: no rashes, normal color, warm/dry Results & Data Results & Data Vital Signs (Past 12 Hours) Vital Signs Temp Pulse Pulse Resp BP BP Pulse Ox 01/01/23 11:13 36.8 C 90 19 123/84 98 01/01/23 10:00 95 H 16 95 01/01/23 10:00 128/86 01/01/23 09:30 87 14 93 01/01/23 09:30 119/68 01/01/23 09:01 84 18 95 01/01/23 09:12 84 01/01/23 08:57 87 22 92 01/01/23 08:57 87 22 141/90 H 92 01/01/23 08:09 37.5 C 107 H 18 129/70 96 O2 Del Method 01/01/23 11:13 Room Air 01/01/23 10:00 01/01/23 10:00 01/01/23 09:30 01/01/23 09:30 01/01/23 09:01 01/01/23 09:12 01/01/23 08:57 Room Air 01/01/23 08:57 Room Air 01/01/23 08:09 Room Air Laboratory Results Short CBC 01/01/23 Range/Units 08:45 WBC 9.30 (4.8-10.8) K/ul Hgb 12.2 L (14.0-18.0) g/dl Hct 33.2 L (42.0-52.0) % Plt Count 127 L (130-400) K/uL BMP 01/01/23 01/01/23 08:45 14:43 Sodium 135 L 134 L Potassium 4.0 4.0 Chloride 102 103 Carbon Dioxide 28 26 BUN 9 9 Creatinine 0.84 0.87 Glucose 115 H 127 H Calcium 9.3 8.9 Cardiac Enzymes 01/01/23 Range/Units 08:45 Total Creatine Kinase 294 H (30-223) U/L Liver Function 01/01/23 Range/Units 08:45 Total Bilirubin 1.9 H (0.2-1.0) mg/dl AST 52 H (13-39) U/L ALT 26 (7-52) U/L Alkaline Phosphatase 40 (34-104) U/L Albumin 4.6 (3.4-5.0) gm/dl Urine 01/01/23 Range/Units 08:45 Urine Color Dark Yellow Urine Appearance Clear (Clear) Urine pH 6.5 (4.5-7.5) Ur Specific Whitney 1.011 (1.000-1.030) Urine Protein Trace H (Negative) Urine Glucose (UA) Negative (Negative) Diagnostic Findings Abdomen/Pelvis CT 01/01/23 08:28 CT abd pelvis IV con only CLINICAL HISTORY: LUQ abd pain TECHNIQUE: Helical axial images of the abdomen and pelvis were obtained and displayed. Automated dose lowering techniques and/or adjustment according to patient size were utilized for this exam. This exam was performed with intravenous contrast. CT DOSE: 390.38 mGy.cm COMPARISON: None available at the time of this dictation. FINDINGS: Lower chest: No acute abnormality. Liver: Unremarkable. No focal lesions are seen. Gallbladder and biliary tree: No calcified gallstones. Normal caliber wall. No intra- or extrahepatic biliary ductal dilation. Pancreas: Unremarkable, no focal lesions. Spleen: Splenomegaly measures 21.3 cm. Heterogeneity of the spleen is seen. Adrenals: Unremarkable. Kidneys and ureters: Subcentimeter hypodensities are too small to characterize. Bladder: Unremarkable. Reproductive organs: Unremarkable. Bowel: The appendix is normal. Lymph nodes Retroperitoneal: Unremarkable. Pelvic: Unremarkable. Mesenteric: Subcentimeter lymph nodes are noted. Peritoneum: Normal. Vessels: Unremarkable. Abdominal wall: Unremarkable. Bones: Unremarkable. 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 Otherwise no acute abnormalities are seen. ACT 112: Negative or not required by law. Electronically signed by: Rick Mckeon M.D. 01/01/2023 11:04 AM Chest X-Ray 01/01/23 11:04 XR chest 1V portable CLINICAL HISTORY: LUQ abd pain TECHNIQUE: Single frontal radiograph of the chest was obtained. Comparison: None available at the time of this dictation. FINDINGS: No lines and tubes are seen. The cardiomediastinal silhouette is normal. The lungs are clear. No evidence of pleural effusion or pneumothorax. IMPRESSION: No acute chest disease. ACT 112: Negative or not required by law. Electronically signed by: Rick Mckeon M.D. 01/01/2023 11:20 AM ECG Additional Comments: ECG reviewed: Normal sinus rhythm, Normal ECG Supervising Physician Co-Signing Physician Notes Pt seen and examined by me, care coordinated heladio/ Bertin Cota PA-C, pls refer to her note above for further detail. Pt is a 22 yo M with hx of sickle cell type SC, asthma who presents with nausea, vomiting and left-sided abdominal pain since yesterday. Patient also has had cold symptoms - a sore throat, cough and congestion since last week. For sickle cell he follows w/ heme-onc group based out of [facility] in [place]. He reports some pleuritic chest pain. Yesterday, he noted constant sharp pain at the base of left lateral ribs that was painful to the point of making him feel nauseous with multiple bouts of vomiting. Was able to tolerate some fluids but has not eaten much since then. Denies any lightheadedness, visual changes, chest pain, shortness of breath, dysuria, diarrhea or constipation. Did take 1 home oxycodone this morning around 6 AM but pain persisted, so he presented to ED for further evaluation. Currently laying in bed, in no acute distress. Reports that IV morphine did not really work for him. Requested p.o. oxycodone which seems to be working better for him. Also reported Toradol is helpful for his pain. He is awake alert oriented answering appropriately. 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 Lungs are clear to auscultation however patient does cough with deep inspiration. Cough is nonproductive. Heart sounds regular. Abdomen soft, positive splenomegaly on palpation, tender to palpation in left upper and lower quadrants. No lower extremity edema. Moves extremities spontaneously. Skin is warm and dry. Bio fire positive for parainfluenza 3. Continue IV fluids, pain management. Isolation due to parainfluenza. Hematology office at [facility] contacted, and Dr. Hidalgo - grade teacher at [employer] also consulted. Continue to closely monitor. MD Edd
[2023-01-01] MEDS ORDERED: oxyCODONE HCL IR 5 MG TAB (IMMEDIATE RELEASE) PO STA (12:51)
[2023-01-01] MEDS ORDERED: SODIUM CHLORIDE 0.9% 1000ML 1,000 ML IV ONE (13:12)
[2023-01-01 15:02] LABS: Adenovirus PCR Not Detected (NotDetected); Bordetella parapertussis PCR Not Detected (NotDetected); Bordetella pertussis PCR Not Detected (NotDetected); Chlamydia pneumoniae PCR Not Detected (NotDetected); Coronavirus 229E PCR Not Detected (NotDetected); Coronavirus CoV-2 (COVID19)PCR Not Detected (NotDetected); Coronavirus HKU1 PCR Not Detected (NotDetected); Coronavirus NL63 PCR Not Detected (NotDetected); Coronavirus OC43PCR Not Detected (NotDetected); Human Metapneumovirus PCR Not Detected (NotDetected); Influenza A PCR Not Detected (NotDetected); Influenza B PCR Not Detected (NotDetected); Mycoplasma pneumoniae PCR Not Detected (NotDetected); Parainfluenza Virus 1 PCR Not Detected (NotDetected); Parainfluenza Virus 2 PCR Not Detected (NotDetected); Parainfluenza Virus 4 PCR Not Detected (NotDetected); Respiratory Syncytial VirusPCR Not Detected (NotDetected); Rhinovirus/Enterovirus PCR Not Detected (NotDetected)
[2023-01-01 15:12] LABS: Parainfluenza Virus 3 PCR DETECTED (NotDetected)
[2023-01-01] MEDS ORDERED: POLYETHYLENE (MIRALAX) 17 GM PACK PO PRN (15:12)
[2023-01-01 15:16] LABS: BUN Creatinine Ratio 10.3 (10-20); Calcium 8.9 mg/dl (8.6-10.3); Creatinine Clr Calc Pharmacy 134.3 ml/min; Est GFR (Non-African American) 123.4 ml/min
[2023-01-01] MEDS: ACETAMINOPHEN 325 MG TAB PO PRN ×2 (15:32→22:23)
[2023-01-01] MEDS ORDERED: FLUTICASONE PROPIONATE NA SPR 16 GM BTL NAE PRN (15:47)
[2023-01-01] MEDS ORDERED: ALBUTEROL HFA 8 GM INHALER INH PRN (15:47)
[2023-01-01] MEDS ORDERED: SODIUM CHLORIDE 0.9% 1000ML 1,000 ML IV SCH (16:00)
--- NOTE | 2023-01-01 16:14 | Oncology Consultation ---
Date of Consultation January 01, 2023 Assessment & Plan (1) Splenic sequestration: (2) Sickle cell disease: Plan Pleasant gentleman who presented with left sided abdominal pain and was found to have imaging findings concerning for sickle cell sequestration crisis. Symptoms have significantly improved with IV fluids and pain medications. Labs show decrease in hemoglobin from 12-10 possibly due to hemodilution from IV fluids versus sequestration crisis. - Would recommend continued monitoring of hemoglobin Twice a day. - If hemoglobin continues to decline, would recommend simple transfusion with 1 unit of PRBC and he will need to be transferred to tertiary center as he may need splenectomy -Continue daily folic acid -He may benefit from starting hydroxyurea but will defer to his industrial ecology technician in [place] History of Present Illness Reason for Consultation: Sickle cell Attending Physician: Zander Puga MD History of Present Illness 22-year-old male with sickle cell Hb SC followed by [facility] Hematology, [place] who presented to [facility] with left sided abdominal pain,nausea and vomiting.Chest x-ray obtained on admission did not show any acute process. 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 He was subsequently started on IV fluids as well as pain medications with improvement in symptoms. During my evaluation of patient today, he states that abdominal pain has significantly improved. He denies chest pain, shortness of breath. Endorses cough which he attributes to recent upper respiratory viral infection. Denies fever, chills or any other issues Allergies Allergy/AdvReac Type Severity Reaction Status Date / Time No Known Allergies Allergy Unverified 01/01/23 09:58 Home Medications Medication Instructions Recorded Confirmed Type oxycodone 5 mg tablet 5 - 10 mg PO Q4H PRN pain #14 tabs 06/19/22 01/01/23 Rx albuterol sulfate 90 mcg/actuation 2 puff inhalation Q6H PRN 01/01/23 01/01/23 History aerosol inhaler Shortness Of Breath Or Wheezing fluticasone propionate 50 2 spray intranasal DAILY PRN 01/01/23 01/01/23 History mcg/actuation nasal allergies spray,suspension folic acid 1 mg tablet 1 mg PO DAILY 01/01/23 01/01/23 History methylphenidate HCl 10 mg tablet 10 mg PO UD 01/01/23 01/01/23 History methylphenidate HCl 36 mg 36 mg PO UD 01/01/23 01/01/23 History tablet,extended release 24 hr montelukast 10 mg tablet 10 mg PO DAILY 01/01/23 01/01/23 History Patient History Medical History Asthma Sickle cell disease Surgical History (Updated 01/01/23 @ 15:21 by Janis Cota PA-C) No pertinent past surgical history Family History Other Deep vein thrombosis Social History Smoking Status: Never smoker Hx Alcohol Use: Yes Alcohol type: hard liquor Alcohol Intake Frequency: 2-4 x/Month Hx Substance Use: No Preferred Language: Greek Vice President Of Procurement Required: No Beliefs That Will Affect Care: None Current Living Situation: Other current occupational status: student Feels Safe at Home: Yes Safety Concerns: Feels Safe At This Time Assistive Devices: Glasses Review of Systems Review of Systems: All systems reviewed & are unremarkable except as noted in Subjective Physical Exam Constitutional: WD/WN, vitals as above Eyes: PERRL, conjunctivae normal, anicteric sclerae Respiratory: normal respiratory effort, lungs clear to auscultation Cardiovascular: RRR, no murmur, no edema Gastrointestinal (Abdomen): Positive for splenomegaly Results & Data Vital Signs (Past 12 Hours) Vital Signs Temp Pulse Pulse Resp BP BP Pulse Ox 01/01/23 15:12 37.7 C H 88 18 135/87 95 01/01/23 13:30 88 95 01/01/23 13:30 119/73 01/01/23 13:20 95 H 21 97 01/01/23 13:00 94 H 22 01/01/23 13:00 134/93 01/01/23 12:50 90 27 H 01/01/23 12:40 88 24 01/01/23 12:30 97 H 23 01/01/23 12:30 116/68 01/01/23 12:20 83 01/01/23 12:10 85 95 01/01/23 12:00 85 96 01/01/23 12:00 128/88 01/01/23 11:50 81 95 01/01/23 11:40 87 16 96 04/02/23 11:30 84 22 94 01/01/23 11:30 132/92 01/01/23 11:20 85 18 94 01/01/23 11:18 89 15 98 01/01/23 11:18 123/84 01/01/23 11:10 88 15 01/01/23 11:00 87 28 H 97 01/01/23 10:50 87 21 96 01/01/23 10:41 100 H 14 98 01/01/23 10:20 99 H 16 96 01/01/23 10:10 90 21 94 01/01/23 11:13 36.8 C 90 19 123/84 98 01/01/23 10:00 95 H 16 95 01/01/23 10:00 128/86 01/01/23 09:30 87 14 93 01/01/23 09:30 119/68 01/01/23 09:01 84 18 95 01/01/23 09:12 84 01/01/23 08:57 87 22 92 01/01/23 08:57 87 22 141/90 H 92 01/01/23 08:09 37.5 C 107 H 18 129/70 96 O2 Del Method 01/01/23 15:12 Room Air 01/01/23 13:30 01/01/23 13:30 01/01/23 13:20 01/01/23 13:00 01/01/23 13:00 01/01/23 12:50 01/01/23 12:40 01/01/23 12:30 01/01/23 12:30 01/01/23 12:20 01/01/23 12:10 01/01/23 12:00 01/01/23 12:00 01/01/23 11:50 01/01/23 11:40 01/01/23 11:30 01/01/23 11:30 01/01/23 11:20 01/01/23 11:18 01/01/23 11:18 01/01/23 11:10 01/01/23 11:00 01/01/23 10:50 01/01/23 10:41 01/01/23 10:20 01/01/23 10:10 01/01/23 11:13 Room Air 01/01/23 10:00 01/01/23 10:00 01/01/23 09:30 01/01/23 09:30 01/01/23 09:01 01/01/23 09:12 01/01/23 08:57 Room Air 01/01/23 08:57 Room Air 01/01/23 08:09 Room Air
[2023-01-01] MEDS: KETOROLAC TROMETHAMINE 15 MG/ML VIAL IV PRN (16:18)
[2023-01-01 16:47] LABS: Basophils # (auto) 0.03 K/uL (0-0.2); Basophils % (auto) 0.4 %; Eosinophils # (auto) 0.03 K/uL (0-0.50); Eosinophils % (auto) 0.4 %; Hemoglobin 10.8 g/dl (14.0-18.0); Immature Granulocytes # (auto) 0.03 K/uL (0.01-0.20); Immature Granulocytes % (auto) 0.4 %; Lymphocytes # (auto) 0.89 K/uL (1.2-3.4); Lymphocytes % (auto) 10.7 %; Mean Corpuscular Hemoglobin 25.6 pg (25.0-34.0); Mean Corpuscular Volume 71.1 fL (80.0-100.0); Mean Platelet Volume 9.7 fL (9.4-12.4); Monocytes # (auto) 0.76 K/uL (0.11-0.59); Monocytes % (auto) 9.1 %; Neutrophils # (auto) 6.57 K/uL (1.40-6.50); Platelet Count 109 K/uL (130-400); RDW Coefficient of Variation 17.1 % (11.5-14.5); RDW Standard Deviation 43.8 fL (36.4-46.3); Red Blood Count 4.22 M/uL (4.70-6.10); White Blood Count 8.31 K/ul (4.8-10.8)
[2023-01-01] MEDS: ENOXAPARIN INJ 40 MG/0.4 ML SYR SQ SCH (18:34)
[2023-01-01] MEDS ORDERED: guaiFENesin/DEXTROM SYRUP 100MG/10MG 5ML UDC PO PRN (19:06)
[2023-01-01] MEDS: oxyCODONE HCL IR 5 MG TAB (IMMEDIATE RELEASE) PO PRN (20:08)
--- NOTE | 2023-01-01 23:03 | Communication Note ---
Date of Service: January 01, 20232029- Updated Dr. Gordillo on evening labs - hgb 10.2 (from 12.2), plt 109 (from 127), likely some dilutional component. VSS, LUQ pain controlled with PRN avery dol. Comfortable with continued monitoring at [facility]. Repeat CBC in AM.
[2023-01-02] MEDS: KETOROLAC TROMETHAMINE 15 MG/ML VIAL IV PRN ×4 (00:02→22:33)
[2023-01-02] MEDS ORDERED: MELATONIN 3 MG TAB PO PRN (00:09)
[2023-01-02] MEDS: ONDANSETRON INJ 2 MG/ML 2 ML VIAL IV PRN ×3 (03:08→16:38)
[2023-01-02] MEDS: oxyCODONE HCL IR 5 MG TAB (IMMEDIATE RELEASE) PO PRN ×2 (05:11→12:42)
[2023-01-02] MEDS ORDERED: PROMETHAZINE HCL 12.5 MG in SODIUM CHLORIDE 0.9% 50 ML IV STA (06:01)
[2023-01-02 07:39] LABS: Hematocrit (blood only) 28.4 % (42.0-52.0); Hemoglobin 10.4 g/dl (14.0-18.0); Mean Corpuscular Hemoglobin 25.5 pg (25.0-34.0); Mean Corpuscular Hgb Conc 36.6 g/dL (32.0-36.0); Mean Corpuscular Volume 69.6 fL (80.0-100.0); Mean Platelet Volume 10.3 fL (9.4-12.4); Platelet Count 110 K/uL (130-400); RDW Coefficient of Variation 17.2 % (11.5-14.5); Red Blood Count 4.08 M/uL (4.70-6.10); White Blood Count 7.82 K/ul (4.8-10.8)
[2023-01-02] MEDS: FOLIC ACID 1 MG TAB PO SCH (07:48)
[2023-01-02] MEDS: MONTELUKAST SODIUM 10 MG TABLET PO SCH (07:48)
[2023-01-02 08:06] LABS: Basophils # (auto) 0.03 K/uL (0-0.2); Basophils % (auto) 0.4 %; Eosinophils # (auto) 0.08 K/uL (0-0.50); Immature Granulocytes # (auto) 0.03 K/uL (0.01-0.20); Immature Granulocytes % (auto) 0.4 %; Lymphocytes # (auto) 0.89 K/uL (1.2-3.4); Lymphocytes % (auto) 11.4 %; Monocytes # (auto) 0.88 K/uL (0.11-0.59); Monocytes % (auto) 11.3 %; Neutrophils # (auto) 5.91 K/uL (1.40-6.50); Neutrophils % (auto) 75.5 %; Polychromasia 1+; Target Cells 2+
--- NOTE | 2023-01-02 08:32 | Hospitalist Progress Note ---
Date of Service January 02, 2023 Assessment & Plan (1) Sickle cell disease: (2) LUQ pain: (3) Nausea and vomiting: (4) Splenic sequestration: (5) URI (upper respiratory infection): (6) Asthma: Plan This is a 22-year-old male with PMH of sickle cell type SC, asthma who presents to the ED with nausea, vomiting and left-sided abdominal pain. 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 Otherwise no acute abnormalities are seen Discussed on admission with Dr. Hidalgo of heme/onc - feels Sickle Cell is stable now but with possibility of splenic sequestration, need to be monitoring carefully for evidence of SC crisis (hypotension, hgb drop of >2g/dl) Hematology (Dr. Hidalgo) consulted, appreciate their input LDH 598, haptoglobin - pending repeat hgb 10.8 -likely dilutional. Hemoglobin this morning 10.4, essentially unchanged from last evening. Monitor CBC Discussed on admission with [facility] heme onc provider denier control operator, Dr. Cirilo Gordillo who agrees with plan, accepts patient for transfer if he were to clinically deteriorate and need higher level of care ([facility] heme onc office # ) on admission Given 1 L NSS bolus given dry appearance on exam. Maintenance fluids, adv diet as tolerated Pail control with PRN home oxycodone, PRN toradol Antiemetics as needed (N/V improved since arrival) cont. to have poor appetite URI Asthma Recent viral symptoms, biofire with parainfluenza 3 PCR detected CXR without acute process Supportive care, PRN albuterol DVT Ppx: SQ lovenox Code status: FULL PCP: Desmond ([facility] pediatrics in [place]) Dispo: PCU Patient's father Clif for updates @ [phone] Admission and Anticipated Discharge Date Admission Date: January 01, 2023 Subjective Patient seen in follow-up of left upper quadrant pain, history of sickle cell disease. Upper respiratory symptoms since last week, diagnosed with parainfluenza 3 on bio fire in the ED Currently laying in bed, in no acute distress Continues to have some cough, minimal sputum production Some pleuritic chest pain Continues to have left upper quadrant pain, especially when moving around, says he feels comfortable when he is laying still Poor appetite. Per RN, patient is utilizing pain medications [id number]. Review of Systems Review of Systems: All systems reviewed & are unremarkable except as noted in Subjective Physical Exam Physical Exam: General Appearance:WD/WN young M in NAD Head: normocephalic, atraumatic Eyes:normal inspection, PERRL, EOMI, conjunctivae normal, anicteric sclerae ENT: external ear and nose normal Neck: normal visual inspection Respiratory:diminished breath sounds with rhonchi, no wheezing and no rales. No accessory muscle use Cardiovascular: regular rate, rhythm, no murmur, normal peripheral pulses, no BLE edema. Vessels: no JVD Chest: normal inspection of chest Abdomen/GI: normal bowel sounds, soft, LUQ TTP, +splenomegaly Extremities/Musculoskeletal:moves extremities Neurologic: PERRL, EOMI, no face palsy, no dysarthria, moves all extremities Psychiatric:A+Ox3, euthymic affect Skin: no rashes, normal color, warm/dry Results & Data Results & Data Vital Signs (Past 12 Hours) Vital Signs Temp Pulse Pulse Resp BP Pulse Ox O2 Del Method 01/02/23 08:00 80 01/02/23 07:47 36.8 C 74 16 134/76 96 Room Air 01/02/23 02:55 37.1 C 78 18 130/86 97 Room Air 01/01/23 22:03 88 01/02/23 00:09 37.3 C 01/01/23 23:08 37.9 C H 96 H 18 130/78 92 Room Air Laboratory Results 01/02/23 01/02/23 01/02/23 Range/Units 08:35 08:35 08:35 WBC (4.8-10.8) K/ul RBC (4.70-6.10) M/uL Hgb (14.0-18.0) g/dl Hct (42.0-52.0) % MCV (80.0-100.0) fL MCH (25.0-34.0) pg MCHC (32.0-36.0) g/dL RDW Std Deviation (36.4-46.3) fL RDW Coeff of Wendi (11.5-14.5) % Plt Count (130-400) K/uL MPV (9.4-12.4) fL Immature Gran % (Auto) % Neut % (Auto) % Lymph % (Auto) % [place] % (Auto) % Eos % (Auto) % Baso % (Auto) % Reticulocyte % (Auto) 2.7 H (0.5-2.0) % Neut # (Auto) (1.40-6.50) K/uL Lymph # (Auto) (1.2-3.4) K/uL [place] # (Auto) (0.11-0.59) K/uL Eos # (Auto) (0-0.50) K/uL Baso # (Auto) (0-0.2) K/uL Reticulocyte # 0.11 H (0.02-0.10) 10^6/uL Immature Gran # (Auto) (0.01-0.20) K/uL Polychromasia Target Cells Sodium (136-145) mmol/L Potassium (3.5-5.1) mmol/L Chloride (98-107) mmol/L Carbon Dioxide (21-32) mmol/L Anion Gap (3-11) BUN (6-23) mg/dl Creatinine (0.6-1.4) mg/dl Est Cr Clr Drug Dosing ml/min Est GFR ( Amer) ml/min Est GFR (Non-Af Amer) ml/min BUN/Creatinine Ratio (10-20) Glucose (70-99(Fasting)) mg/dl Calcium (8.6-10.3) mg/dl Iron 22 L (35-175) mcg/dl TIBC 198 L (250-450) mcg/dl Unsaturated IBC 176 (155-355) mcg/dl Transferrin % Sat 11 L (20-50) % Ferritin 684.6 H (8-388) ng/ml Total Bilirubin 1.7 H (0.2-1.0) mg/dl Direct Bilirubin 0.3 H (0-0.2) mg/dl Vitamin B12 273 (180-914) pg/ml Folate > 22.30 (>5.38) ng/ml 01/02/23 01/02/23 Range/Units 06:53 06:53 WBC 7.82 (4.8-10.8) K/ul RBC 4.08 L (4.70-6.10) M/uL Hgb 10.4 L (14.0-18.0) g/dl Hct 28.4 L (42.0-52.0) % MCV 69.6 L (80.0-100.0) fL MCH 25.5 (25.0-34.0) pg MCHC 36.6 H (32.0-36.0) g/dL RDW Std Deviation 43.0 (36.4-46.3) fL RDW Coeff of Wendi 17.2 H (11.5-14.5) % Plt Count 110 L (130-400) K/uL MPV 10.3 (9.4-12.4) fL Immature Gran % (Auto) 0.4 % Neut % (Auto) 75.5 % Lymph % (Auto) 11.4 % [place] % (Auto) 11.3 % Eos % (Auto) 1.0 % Baso % (Auto) 0.4 % Reticulocyte % (Auto) (0.5-2.0) % Neut # (Auto) 5.91 (1.40-6.50) K/uL Lymph # (Auto) 0.89 L (1.2-3.4) K/uL [place] # (Auto) 0.88 H (0.11-0.59) K/uL Eos # (Auto) 0.08 (0-0.50) K/uL Baso # (Auto) 0.03 (0-0.2) K/uL Reticulocyte # (0.02-0.10) 10^6/uL Immature Gran # (Auto) 0.03 (0.01-0.20) K/uL Polychromasia 1+ Target Cells 2+ Sodium 136 (136-145) mmol/L Potassium 4.0 (3.5-5.1) mmol/L Chloride 103 (98-107) mmol/L Carbon Dioxide 26 (21-32) mmol/L Anion Gap 7 (3-11) BUN 9 (6-23) mg/dl Creatinine 0.85 (0.6-1.4) mg/dl Est Cr Clr Drug Dosing 137.5 ml/min Est GFR ( Amer) 144.4 ml/min Est GFR (Non-Af Amer) 124.6 ml/min BUN/Creatinine Ratio 10.6 (10-20) Glucose 99 (70-99(Fasting)) mg/dl Calcium 8.9 (8.6-10.3) mg/dl Iron (35-175) mcg/dl TIBC (250-450) mcg/dl Unsaturated IBC (155-355) mcg/dl Transferrin % Sat (20-50) % Ferritin (8-388) ng/ml Total Bilirubin (0.2-1.0) mg/dl Direct Bilirubin (0-0.2) mg/dl Vitamin B12 (180-914) pg/ml Folate (>5.38) ng/ml Medications Administered Current Inpatient Medications Acetaminophen (Acetaminophen 325 Mg Tab) 650 mg PO Q4H PRN PRN Reason: Pain or Fever Stop: 01/31/23 15:11 Last Admin: 01/01/23 22:23 Dose: 650 mg Albuterol (Albuterol Hfa 8 Gm Inhaler) 2 puffs INH Q6H PRN PRN Reason: Shortness Of Breath Or Wheezing Stop: 01/31/23 15:46 Enoxaparin Sodium (Enoxaparin Inj 40 Mg/0.4 Ml Syr) 40 mg SQ Q24H [place] Stop: 01/31/23 16:59 Last Admin: 01/01/23 18:34 Dose: 40 mg Fluticasone Propionate (Fluticasone Propionate Na Spr 16 Gm Btl) 2 sprays ARABELLA DAILY PRN PRN Reason: allergies Stop: 01/31/23 15:46 Last Admin: 01/01/23 20:26 Dose: 2 sprays Folic Acid (Folic Acid 1 Mg Tab) 1 mg PO DAILY [place] Stop: 02/01/23 08:59 Last Admin: 01/02/23 07:48 Dose: 1 mg Guaifenesin/Dextromethorphan (Guaifenesin/Dextrom Syrup 100mg/10mg 5ml Udc) 10 ml PO Q8 PRN PRN Reason: Cough Stop: 01/31/23 19:05 Last Admin: 01/01/23 20:05 Dose: 10 ml Ketorolac Tromethamine (Ketorolac Tromethamine 15 Mg/Ml Vial) 15 mg IV Q6H PRN PRN Reason: Pain Stop: 01/03/23 15:46 Last Admin: 01/02/23 07:48 Dose: 15 mg Melatonin (Melatonin 3 Mg Tab) 3 mg PO HS PRN PRN Reason: Sleep Stop: 02/01/23 00:08 Last Admin: 01/02/23 00:16 Dose: 3 mg Montelukast Sodium (Montelukast Sodium 10 Mg Tablet) 10 mg PO DAILY [place] Stop: 02/01/23 08:59 Last Admin: 01/02/23 07:48 Dose: 10 mg Ondansetron HCl (Ondansetron Inj 2 Mg/Ml 2 Ml Vial) 4 mg IV Q6H PRN PRN Reason: Nausea Stop: 01/31/23 15:11 Last Admin: 01/02/23 07:54 Dose: 4 mg Oxycodone HCl (Oxycodone Hcl Ir 5 Mg Tab (Immediate Release)) 5 mg PO Q6H PRN PRN Reason: Severe Pain (Scale 7, 8, 9,10) Stop: 01/15/23 15:46 Last Admin: 01/02/23 05:11 Dose: 5 mg Polyethylene Glycol (Polyethylene (Miralax) 17 Gm Pack) 17 gm PO DAILY PRN PRN Reason: Constipation Stop: 01/31/23 15:11
[2023-01-02 09:02] LABS: Reticulocyte % 2.7 % (0.5-2.0); Reticulocytes # 0.11 10^6/uL (0.02-0.10)
[2023-01-02] MEDS: ACETAMINOPHEN 325 MG TAB PO PRN ×2 (09:27→19:58)
[2023-01-02 10:01] LABS: Calcium 8.9 mg/dl (8.6-10.3)
[2023-01-02 10:02] LABS: Bilirubin Direct 0.3 mg/dl (0-0.2); Bilirubin,Total 1.7 mg/dl (0.2-1.0)
[2023-01-02 10:07] LABS: BUN Creatinine Ratio 10.6 (10-20); Creatinine Clr Calc Pharmacy 137.5 ml/min; Est GFR (African American) 144.4 ml/min; Est GFR (Non-African American) 124.6 ml/min
[2023-01-02 10:19] LABS: Ferritin 684.6 ng/ml (8-388)
[2023-01-02 10:24] LABS: Vitamin B12 273 pg/ml (180-914)
[2023-01-02] MEDS: SODIUM CHLORIDE 0.9% 1000ML 1,000 ML IV SCH (14:23)
[2023-01-02] MEDS: ENOXAPARIN INJ 40 MG/0.4 ML SYR SQ SCH (16:37)
[2023-01-02 18:10] LABS: Hematocrit (blood only) 29.5 % (42.0-52.0); Hemoglobin 10.7 g/dl (14.0-18.0)
[2023-01-03] MEDS: oxyCODONE HCL IR 5 MG TAB (IMMEDIATE RELEASE) PO PRN (00:45)
[2023-01-03] MEDS: SODIUM CHLORIDE 0.9% 1000ML 1,000 ML IV SCH (01:57)
[2023-01-03 06:28] LABS: Hematocrit (blood only) 27.9 % (42.0-52.0); Hemoglobin 10.1 g/dl (14.0-18.0); Mean Corpuscular Hemoglobin 25.4 pg (25.0-34.0); Mean Corpuscular Hgb Conc 36.2 g/dL (32.0-36.0); Mean Corpuscular Volume 70.1 fL (80.0-100.0); Mean Platelet Volume 10.5 fL (9.4-12.4); Platelet Count 128 K/uL (130-400); RDW Coefficient of Variation 17.2 % (11.5-14.5); RDW Standard Deviation 44.2 fL (36.4-46.3); Red Blood Count 3.98 M/uL (4.70-6.10); White Blood Count 7.72 K/ul (4.8-10.8)
[2023-01-03 06:55] LABS: BUN Creatinine Ratio 10.1 (10-20); Calcium 8.6 mg/dl (8.6-10.3); Creatinine Clr Calc Pharmacy 147.9 ml/min; Est GFR (African American) 148.8 ml/min; Est GFR (Non-African American) 128.4 ml/min; Magnesium 1.9 mg/dl (1.7-2.4); Phosphorus 3.4 mg/dl (2.5-4.9); Potassium 3.9 mmol/L (3.5-5.1)
--- NOTE | 2023-01-03 07:27 | Hospitalist Progress Note ---
Date of Service January 03, 2023 Assessment & Plan (1) Sickle cell disease: (2) LUQ pain: (3) Nausea and vomiting: (4) Splenic sequestration: (5) URI (upper respiratory infection): (6) Asthma: Plan This is a 22-year-old male with PMH of sickle cell type SC, asthma who presents to the ED with nausea, vomiting and left-sided abdominal pain. 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 Otherwise no acute abnormalities are seen Discussed on admission with Dr. Hidalgo of heme/onc - feels Sickle Cell is stable now but with possibility of splenic sequestration, need to be monitoring carefully for evidence of SC crisis (hypotension, hgb drop of >2g/dl) Discussed on admission with [facility] heme onc provider economics lecturer, Dr. Cirilo Gordillo who agrees with plan, accepts patient for transfer if he were to clinically de teriorate and need higher level of care ([facility] heme onc office # ) Hematology (Dr. Hidalgo) consulted, discussed again in detail yesterday and H&H re-checked. Updated her this AM about current H&H and poss. DC later today. LDH 598, haptoglobin - pending repeat hgb on admission 10.8 -likely dilutional. Hemoglobin yesterday AM 10.4, current Hgb 10.1 (01/03/23 AM) - stable Monitor CBC on admission Given 1 L NSS bolus given dry appearance on exam. Maintenance fluids, adv diet as tolerated Pail control with PRN home oxycodone, PRN toradol Antiemetics as needed (N/V improved since arrival) Pt seems clinically improved, pain controlled URI Asthma Recent viral symptoms, biofire with parainfluenza 3 PCR detected CXR without acute process Supportive care, PRN albuterol guaifenesin DVT Ppx: SQ lovenox Code status: FULL PCP: Desmond ([facility] pediatrics in [place]) Dispo: PCU Patient's father Mr. Clif Weber for updates @ [phone] Admission and Anticipated Discharge Date Admission Date: January 01, 2023 Subjective Patient seen in follow-up of left upper quadrant pain, history of sickle cell disease. Upper respiratory symptoms since last week, diagnosed with parainfluenza 3 on bio fire in the ED Currently laying in bed, in no acute distress Continues to have some cough, minimal sputum production Some pleuritic chest pain Continues to have left upper quadrant pain, but overall feels improved. Also feels his appetite is better. Hgb fairly stable from yesterday. Discussed with patient's father over the phone, he would plan to come pick him up and take to [place] today, with follow-up with pt's electronic design engineer tomorrow in [place]. Discussed with Dr. Hidalgo, electronic design engineer here at [facility] in detail yesterday. Updated her on current -this AM labs as well. Review of Systems Review of Systems: All systems reviewed & are unremarkable except as noted in Subjective Physical Exam Physical Exam: General Appearance:WD/WN young M in NAD Head: normocephalic, atraumatic Eyes:normal inspection, PERRL, EOMI, conjunctivae normal, anicteric sclerae ENT: external ear and nose normal Neck: normal visual inspection Respiratory:diminished breath sounds with rhonchi, no wheezing and no rales. No accessory muscle use Cardiovascular: regular rate, rhythm, no murmur, normal peripheral pulses, no BLE edema. Vessels: no JVD Chest: normal inspection of chest Abdomen/GI: normal bowel sounds, soft, LUQ TTP, +splenomegaly Extremities/Musculoskeletal:moves extremities Neurologic: PERRL, EOMI, no face palsy, no dysarthria, moves all extremities Psychiatric:A+Ox3, euthymic affect Skin: no rashes, normal color, warm/dry Results & Data Results & Data Vital Signs (Past 12 Hours) Vital Signs Temp Pulse Pulse Resp BP Pulse Ox O2 Del Method 01/03/23 03:43 37.0 C 72 16 128/83 97 Room Air 01/03/23 00:41 37 C 84 20 133/89 98 Room Air 01/02/23 23:02 78 01/02/23 20:02 37 C 71 20 126/78 98 Room Air Laboratory Results 01/03/23 01/03/23 01/02/23 Range/Units 05:53 05:53 17:36 WBC 7.72 (4.8-10.8) K/ul RBC 3.98 L (4.70-6.10) M/uL Hgb 10.1 L 10.7 L (14.0-18.0) g/dl Hct 27.9 L 29.5 L (42.0-52.0) % MCV 70.1 L (80.0-100.0) fL MCH 25.4 (25.0-34.0) pg MCHC 36.2 H (32.0-36.0) g/dL RDW Std Deviation 44.2 (36.4-46.3) fL RDW Coeff of Wendi 17.2 H (11.5-14.5) % Plt Count 128 L (130-400) K/uL MPV 10.5 (9.4-12.4) fL Immature Gran % (Auto) % Neut % (Auto) % Lymph % (Auto) % [place] % (Auto) % Eos % (Auto) % Baso % (Auto) % Reticulocyte % (Auto) (0.5-2.0) % Neut # (Auto) (1.40-6.50) K/uL Lymph # (Auto) (1.2-3.4) K/uL [place] # (Auto) (0.11-0.59) K/uL Eos # (Auto) (0-0.50) K/uL Baso # (Auto) (0-0.2) K/uL Reticulocyte # (0.02-0.10) 10^6/uL Immature Gran # (Auto) (0.01-0.20) K/uL Polychromasia Target Cells Sodium 136 (136-145) mmol/L Potassium 3.9 (3.5-5.1) mmol/L Chloride 104 (98-107) mmol/L Carbon Dioxide 26 (21-32) mmol/L Anion Gap 6 (3-11) BUN 8 (6-23) mg/dl Creatinine 0.79 (0.6-1.4) mg/dl Est Cr Clr Drug Dosing 147.9 ml/min Est GFR ( Amer) 148.8 ml/min Est GFR (Non-Af Amer) 128.4 ml/min BUN/Creatinine Ratio 10.1 (10-20) Glucose 95 (70-99(Fasting)) mg/dl Calcium 8.6 (8.6-10.3) mg/dl Phosphorus 3.4 (2.5-4.9) mg/dl Magnesium 1.9 (1.7-2.4) mg/dl Iron (35-175) mcg/dl TIBC (250-450) mcg/dl Unsaturated IBC (155-355) mcg/dl Transferrin % Sat (20-50) % Ferritin (8-388) ng/ml Total Bilirubin (0.2-1.0) mg/dl Direct Bilirubin (0-0.2) mg/dl Vitamin B12 (180-914) pg/ml Folate (>5.38) ng/ml 01/02/23 01/02/23 01/02/23 Range/Units 08:35 08:35 08:35 WBC (4.8-10.8) K/ul RBC (4.70-6.10) M/uL Hgb (14.0-18.0) g/dl Hct (42.0-52.0) % MCV (80.0-100.0) fL MCH (25.0-34.0) pg MCHC (32.0-36.0) g/dL RDW Std Deviation (36.4-46.3) fL RDW Coeff of Wendi (11.5-14.5) % Plt Count (130-400) K/uL MPV (9.4-12.4) fL Immature Gran % (Auto) % Neut % (Auto) % Lymph % (Auto) % [place] % (Auto) % Eos % (Auto) % Baso % (Auto) % Reticulocyte % (Auto) 2.7 H (0.5-2.0) % Neut # (Auto) (1.40-6.50) K/uL Lymph # (Auto) (1.2-3.4) K/uL [place] # (Auto) (0.11-0.59) K/uL Eos # (Auto) (0-0.50) K/uL Baso # (Auto) (0-0.2) K/uL Reticulocyte # 0.11 H (0.02-0.10) 10^6/uL Immature Gran # (Auto) (0.01-0.20) K/uL Polychromasia Target Cells Sodium (136-145) mmol/L Potassium (3.5-5.1) mmol/L Chloride (98-107) mmol/L Carbon Dioxide (21-32) mmol/L Anion Gap (3-11) BUN (6-23) mg/dl Creatinine (0.6-1.4) mg/dl Est Cr Clr Drug Dosing ml/min Est GFR ( Amer) ml/min Est GFR (Non-Af Amer) ml/min BUN/Creatinine Ratio (10-20) Glucose (70-99(Fasting)) mg/dl Calcium (8.6-10.3) mg/dl Phosphorus (2.5-4.9) mg/dl Magnesium (1.7-2.4) mg/dl Iron 22 L (35-175) mcg/dl TIBC 198 L (250-450) mcg/dl Unsaturated IBC 176 (155-355) mcg/dl Transferrin % Sat 11 L (20-50) % Ferritin 684.6 H (8-388) ng/ml Total Bilirubin 1.7 H (0.2-1.0) mg/dl Direct Bilirubin 0.3 H (0-0.2) mg/dl Vitamin B12 273 (180-914) pg/ml Folate > 22.30 (>5.38) ng/ml 01/02/23 01/02/23 Range/Units 06:53 06:53 WBC 7.82 (4.8-10.8) K/ul RBC 4.08 L (4.70-6.10) M/uL Hgb 10.4 L (14.0-18.0) g/dl Hct 28.4 L (42.0-52.0) % MCV 69.6 L (80.0-100.0) fL MCH 25.5 (25.0-34.0) pg MCHC 36.6 H (32.0-36.0) g/dL RDW Std Deviation 43.0 (36.4-46.3) fL RDW Coeff of Wendi 17.2 H (11.5-14.5) % Plt Count 110 L (130-400) K/uL MPV 10.3 (9.4-12.4) fL Immature Gran % (Auto) 0.4 % Neut % (Auto) 75.5 % Lymph % (Auto) 11.4 % [place] % (Auto) 11.3 % Eos % (Auto) 1.0 % Baso % (Auto) 0.4 % Reticulocyte % (Auto) (0.5-2.0) % Neut # (Auto) 5.91 (1.40-6.50) K/uL Lymph # (Auto) 0.89 L (1.2-3.4) K/uL [place] # (Auto) 0.88 H (0.11-0.59) K/uL Eos # (Auto) 0.08 (0-0.50) K/uL Baso # (Auto) 0.03 (0-0.2) K/uL Reticulocyte # (0.02-0.10) 10^6/uL Immature Gran # (Auto) 0.03 (0.01-0.20) K/uL Polychromasia 1+ Target Cells 2+ Sodium 136 (136-145) mmol/L Potassium 4.0 (3.5-5.1) mmol/L Chloride 103 (98-107) mmol/L Carbon Dioxide 26 (21-32) mmol/L Anion Gap 7 (3-11) BUN 9 (6-23) mg/dl Creatinine 0.85 (0.6-1.4) mg/dl Est Cr Clr Drug Dosing 137.5 ml/min Est GFR ( Amer) 144.4 ml/min Est GFR (Non-Af Amer) 124.6 ml/min BUN/Creatinine Ratio 10.6 (10-20) Glucose 99 (70-99(Fasting)) mg/dl Calcium 8.9 (8.6-10.3) mg/dl Phosphorus (2.5-4.9) mg/dl Magnesium (1.7-2.4) mg/dl Iron (35-175) mcg/dl TIBC (250-450) mcg/dl Unsaturated IBC (155-355) mcg/dl Transferrin % Sat (20-50) % Ferritin (8-388) ng/ml Total Bilirubin (0.2-1.0) mg/dl Direct Bilirubin (0-0.2) mg/dl Vitamin B12 (180-914) pg/ml Folate (>5.38) ng/ml Medications Administered Current Inpatient Medications Acetaminophen (Acetaminophen 325 Mg Tab) 650 mg PO Q4H PRN PRN Reason: Pain or Fever Stop: 01/31/23 15:11 Last Admin: 01/02/23 19:58 Dose: 650 mg Albuterol (Albuterol Hfa 8 Gm Inhaler) 2 puffs INH Q6H PRN PRN Reason: Shortness Of Breath Or Wheezing Stop: 01/31/23 15:46 Enoxaparin Sodium (Enoxaparin Inj 40 Mg/0.4 Ml Syr) 40 mg SQ Q24H [place] Stop: 01/31/23 16:59 Last Admin: 01/02/23 16:37 Dose: 40 mg Fluticasone Propionate (Fluticasone Propionate Na Spr 16 Gm Btl) 2 sprays ARABELLA DAILY PRN PRN Reason: allergies Stop: 01/31/23 15:46 Last Admin: 01/01/23 20:26 Dose: 2 sprays Folic Acid (Folic Acid 1 Mg Tab) 1 mg PO DAILY [facility] Stop: 02/01/23 08:59 Last Admin: 01/02/23 07:48 Dose: 1 mg Guaifenesin/Dextromethorphan (Guaifenesin/Dextrom Syrup 100mg/10mg 5ml Udc) 10 ml PO Q8 PRN PRN Reason: Cough Stop: 01/31/23 19:05 Last Admin: 01/01/23 20:05 Dose: 10 ml Sodium Chloride (Nss 1000ml) 1,000 mls @ 75 mls/hr IV .[id number] [facility] Stop: 02/01/23 13:44 Last Admin: 01/03/23 01:57 Dose: 75 mls/hr Ketorolac Tromethamine (Ketorolac Tromethamine 15 Mg/Ml Vial) 15 mg IV Q6H PRN PRN Reason: Pain Stop: 01/03/23 15:46 Last Admin: 01/02/23 22:33 Dose: 15 mg Melatonin (Melatonin 3 Mg Tab) 3 mg PO HS PRN PRN Reason: Sleep Stop: 02/01/23 00:08 Last Admin: 01/02/23 00:16 Dose: 3 mg Montelukast Sodium (Montelukast Sodium 10 Mg Tablet) 10 mg PO DAILY [place] Stop: 02/01/23 08:59 Last Admin: 01/02/23 07:48 Dose: 10 mg Ondansetron HCl (Ondansetron Inj 2 Mg/Ml 2 Ml Vial) 4 mg IV Q6H PRN PRN Reason: Nausea Stop: 01/31/23 15:11 Last Admin: 01/02/23 16:38 Dose: 4 mg Oxycodone HCl (Oxycodone Hcl Ir 5 Mg Tab (Immediate Release)) 5 mg PO Q6H PRN PRN Reason: Severe Pain (Scale 7, 8, 9,10) Stop: 01/15/23 15:46 Last Admin: 01/03/23 00:45 Dose: 5 mg Polyethylene Glycol (Polyethylene (Miralax) 17 Gm Pack) 17 gm PO DAILY PRN PRN Reason: Constipation Stop: 01/31/23 15:11
[2023-01-03] MEDS: FOLIC ACID 1 MG TAB PO SCH (07:33)
[2023-01-03] MEDS: MONTELUKAST SODIUM 10 MG TABLET PO SCH (07:33)
[2023-01-03] MEDS: KETOROLAC TROMETHAMINE 15 MG/ML VIAL IV PRN (07:34)
[2023-01-03] MEDS: ONDANSETRON INJ 2 MG/ML 2 ML VIAL IV PRN (07:34)
--- NOTE | 2023-01-03 10:28 | Discharge Summary ---
Date of Service January 03, 2023 Admission HPI Per Admitting Provider This is a 22-year-old male with PMH of sickle cell type SC, asthma who presents to the ED with nausea, vomiting and left-sided abdominal pain since yesterday. 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 Has not seen a provider there in over a year but last received IV fluids at heme - onc clinic in November. Patient had cold symptoms of a sore throat and congestion last week that have for the most part resolved. Does still feel congested but no fever, chills or sore throat. Did have some pleuritic chest pain last week but that has resolved. Yesterday, noted constant sharp pain at the base of left lateral ribs that was painful to the point of making him feel nauseous with multiple bouts of vomiting. Was able to tolerate some fluids but has not eaten much since then. Denies any lightheadedness, visual changes, chest pain, shortness of breath, dysuria, diarrhea or constipation. Did take 1 home oxycodone this morning wally und 6 AM but pain persisted, so he presented to ED for further evaluation. Admission Exam Per Admitting Provider General Appearance:WD/WN, vitals as above, NAD, sitting up in bed, appears uncomfortable, conversing without issue Head: normocephalic, atraumatic Eyes:normal inspection, PERRL, conjunctivae normal, anicteric sclerae ENT: external ear and nose normal, dry mucous membranes of oropharynx Neck: normal visual inspection, trachea midline, no thyromegaly Respiratory:diminished breath sounds with rhonchi, no wheezing or no rales. No accessory muscle use Cardiovascular: regular rate, rhythm, no murmur, normal peripheral pulses, no BLE edema. Vessels: no JVD Chest: normal inspection of chest Abdomen/GI: normal bowel sounds, soft, LUQ TTP, +splenomegaly Extremities/Musculoskeletal: no cyanosis or clubbing, extremities motor strength 5/5 Neurologic: PERRL, EOMI, accommodation nl, no face palsy, no dysarthria, CN's II-XI intact bilaterally and moves all extremities Psychiatric:A+Ox3, euthymic affect Skin: no rashes, normal color, warm/dry Principal Diagnosis Splenic sequestration Sickle cell disease Parainfluenza 3 Discharge Exam General Appearance:WD/WN young M in NAD Head: normocephalic, atraumatic Eyes:normal inspection, PERRL, EOMI, conjunctivae normal, anicteric sclerae ENT: external ear and nose normal Neck: normal visual inspection Respiratory:diminished breath sounds with rhonchi, no wheezing and no rales. No accessory muscle use Cardiovascular: regular rate, rhythm, no murmur, normal peripheral pulses, no BLE edema. Vessels: no JVD Chest: normal inspection of chest Abdomen/GI: normal bowel sounds, soft, LUQ TTP, +splenomegaly Extremities/Musculoskeletal:moves extremities Neurologic: PERRL, EOMI, no face palsy, no dysarthria, moves all extremities Psychiatric:A+Ox3, euthymic affect Skin: no rashes, normal color, warm/dry Discharge Data Allergies Allergy/AdvReac Type Severity Reaction Status Date / Time No Known Allergies Allergy Unverified 01/01/23 09:58 Consultations 01/01/23 11:30 ED Decision to Admit Stat 01/01/23 11:49 Consult Hematology Routine Ordered Studies 01/01/23 08:28 CT abd pelvis IV con only Stat FINDINGS: Lower chest: No acute abnormality. Liver: Unremarkable. No focal lesions are seen. Gallbladder and biliary tree: No calcified gallstones. Normal caliber wall. No intra- or extrahepatic biliary ductal dilation. Pancreas: Unremarkable, no focal lesions. Spleen: Splenomegaly measures 21.3 cm. Heterogeneity of the spleen is seen. Adrenals: Unremarkable. Kidneys and ureters: Subcentimeter hypodensities are too small to characterize. Bladder: Unremarkable. Reproductive organs: Unremarkable. Bowel: The appendix is normal. Lymph nodes Retroperitoneal: Unremarkable. Pelvic: Unremarkable. Mesenteric: Subcentimeter lymph nodes are noted. Peritoneum: Normal. Vessels: Unremarkable. Abdominal wall: Unremarkable. Bones: Unremarkable. 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 Otherwise no acute abnormalities are seen. Hospital Course (1) Sickle cell disease: (2) LUQ pain: (3) Nausea and vomiting: (4) Splenic sequestration: (5) URI (upper respiratory infection): (6) Asthma: Plan This is a 22-year-old male with PMH of sickle cell type SC, asthma who presents to the ED with nausea, vomiting and left-sided abdominal pain. 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 Otherwise no acute abnormalities are seen Discussed on admission with Dr. Hidalgo of heme/onc - feels Sickle Cell is stable now but with possibility of splenic sequestration, need to be monitoring carefully for evidence of SC crisis (hypotension, hgb drop of >2g/dl) Discussed on admission with [facility] heme onc provider senior instrumentation engineer, Dr. Cirilo Gordillo who agrees with plan, accepts patient for transfer if he were to clinically deteriorate and need higher level of care ([facility] heme onc office # ) Hematology (Dr. Hidalgo) consulted, discussed again in detail yesterday and H&H re-checked. Updated her this AM about current H&H and poss. DC later today. in agreement to DC today w/ close hematology follow up in [place]. Per pt, he can be seen in hematology clinic tomorrow (01/04/2023) LDH 598, haptoglobin - pending repeat hgb on admission 10.8 -likely dilutional. Hemoglobin yesterday AM 10.4, current Hgb 10.1 (01/03/23 AM) - stable Monitor CBC on admission Given 1 L NSS bolus given dry appearance on exam. Maintenance fluids, adv diet as tolerated Pail control with PRN home oxycodone, PRN toradol Antiemetics as needed (N/V improved since arrival) Pt seems clinically improved, pain controlled URI Asthma Recent viral symptoms, biofire with parainfluenza 3 PCR detected CXR without acute process Supportive care, PRN albuterol guaifenesin Total Time Total Time Spent Total Time Spent (In Minutes): 40 Discharge Plan Discharge Items Patient Disposition: Home - Self-Care Reason For Visit: SICKLE CELL, POSSIBLE SPLENIC SEQUESTRATION Discharge Diagnosis: Splenic sequestration Sickle cell disease Parainfluenza 3 Condition on Discharge: Good Activity: Per Instructions section Non-emergency contact: Specialist Call non-emergency contact if: you have any medication questions and your symptoms worsen Follow-up/Referrals: PCP,NO [Primary Care Provider] - Diet: Regular Addtl Attending Provider Instructions: Follow-up with your primary manager of planning in [place], as discussed, tomorrow (01/04/2023) For pain, you can take Tylenol, NSAIDs -ibuprofen/Aleve/Motrin, and oxycodone as needed as prescribed. For cough, take guaifenesin and Tessalon Perles. If your cough is worsening, you develop fever, or shortness of breath, make sure to see your primary care physician or present to ER for further evaluation and treatment. Pending Studies at Discharge: Yes Studies:: Final blood culture results Stand-Alone Forms: My [facility], Smoking Cessation Medications and DC Order Prescriptions: New oxycodone 5 mg Tablet 5 mg PO Q6H PRN (Reason: pain) Qty: 7 0RF guaifenesin 600 mg tablet extended release 12hr 600 mg PO BID Qty: 10 0RF benzonatate 100 mg capsule 100 mg PO TID PRN (Reason: cough) Qty: 10 0RF Continued methylphenidate HCl 10 mg tablet 10 mg PO UD Rx Instructions: daily at home folic acid 1 mg tablet 1 mg PO DAILY montelukast 10 mg tablet 10 mg PO DAILY fluticasone propionate 50 mcg/actuation spray,suspension 2 spray INTRANASAL DAILY PRN (Reason: allergies) methylphenidate HCl 36 mg tablet extended release 24hr 36 mg PO UD Rx Instructions: daily During school albuterol sulfate 90 mcg/actuation HFA aerosol inhaler 2 puff INHALATION Q6H PRN (Reason: Shortness Of Breath Or Wheezing) Discontinued oxycodone 5 mg tablet 5 - 10 mg PO Q4H PRN (Reason: pain) Qty: 14 0RF Discharge Orders: Discharge Order (Routine); Ordered 01/03/23 Ordered By: Zander Puga Admission Data Admit Date/Time: 01/01/23 13:23 Attending Provider: Zander Puga Admit Provider: Zander Puga Primary Care Provider: PCP,NO Other Providers: Jo Hidalgo ; Zander Puga
== END 2023-01-03 11:17 | disposition home or self-care (01) | DRG 812 ==
LOC: ED 08:04 → 2S 13:23

== ENCOUNTER 2023-06-12 07:30 | Inpatient (IN) ==
[2023-06-12] MEDS ORDERED: ONDANSETRON INJ 2 MG/ML 2 ML VIAL IV STA (07:52)
[2023-06-12] MEDS ORDERED: SODIUM CHLORIDE 0.9% 1,000 ML IV ONE ×2 (07:52→10:21)
[2023-06-12] MEDS ORDERED: MoRPHine SULFATE 10 MG/ML CARP/VIAL IV STA (07:52)
[2023-06-12] MEDS ORDERED: KETOROLAC TROMETHAMINE 15 MG/ML VIAL IV STA (07:52)
--- NOTE | 2023-06-12 07:57 | Emergency Department Note ---
ED Provider Note History of Present Illness Chief Complaint: Leg Injury/Pain Stated Complaint: RIGHT LEG PAIN Time Seen by Provider: 06/12/23 07:40 22-year-old male who presents to the emergency department with concern for possible sickle cell flare. The patient complains of right knee pain. The patient reports that he has had prior symptoms of lower extremity pain with prior sickle cell flares. Patient denies any recent trauma or injury to the knee. The patient follows with hematology at a [facility] clinic in [place]. The patient reports that he was also seen in the emergency department earlier this year, and reports that he did have a follow-up. The patient reports that his pain started this morning. He did take an Oxy IR 5 mg with relief of symptoms. The patient denies any chest pain, shortness of breath, abdominal p ain or other concerning symptoms other than his localized right lower extremity pain. The patient currently rates his pain a 6 out of 10. Home Medications Medication Instructions Recorded Confirmed Type albuterol sulfate 90 mcg/actuation 2 puff inhalation Q6H PRN 01/01/23 06/12/23 History aerosol inhaler Shortness Of Breath Or Wheezing fluticasone propionate 50 2 spray intranasal DAILY PRN 01/01/23 06/12/23 History mcg/actuation nasal allergies spray,suspension folic acid 1 mg tablet 1 mg PO DAILY 01/01/23 06/12/23 History methylphenidate HCl 10 mg tablet 10 mg PO UD 01/01/23 06/12/23 History methylphenidate HCl 36 mg 36 mg PO UD 01/01/23 06/12/23 History tablet,extended release 24 hr montelukast 10 mg tablet 10 mg PO DAILY 01/01/23 06/12/23 History oxycodone 5 mg tablet 5 mg PO Q6H PRN pain #7 tabs 01/03/23 06/12/23 Rx fexofenadine 180 mg tablet 180 mg PO DAILY 06/12/23 06/12/23 History omeprazole 40 mg capsule,delayed 40 mg PO DAILY 06/12/23 06/12/23 History release Allergies Allergy/AdvReac Type Severity Reaction Status Date / Time No Known Allergies Allergy Unverified 01/01/23 09:58 Past Med/Surg History Medical History Asthma Sickle cell disease Surgical History No pertinent past surgical history Family History Other Deep vein thrombosis Social History Smoking Status: Never smoker Hx Alcohol Use: Yes Alcohol type: hard liquor Alcohol Intake Frequency: 2-4 x/Month Hx Substance Use: No Preferred Language: Bots[place] Communication Ability: Effective Student Activities Director Required: No Beliefs That Will Affect Care: None Current Living Situation: Family Current Living Situation Comment: [facility] current occupational status: student Other Information That Helps Us Care for You: No Feels Safe at Home: Yes Safety Concerns: Feels Safe At This Time Assistive Devices: Glasses Physical Exam Vital Signs Vital Signs - 24 hr 06/12/23 07:33 06/12/23 07:46 06/12/23 07:52 Temperature 36.7 C Temperature Source Temporal Artery Scan Pulse Rate 105 H 78 Pulse Rate [Apical] 80 Pulse Rhythm Regular Pulse Rhythm [Apical] Regular Pulse Strength [Apical] Normal Respiratory Rate 18 20 18 Respiratory Effort / Characteristics Non-Labored Non-Labored Spontaneous Respiratory Depth Normal Normal Respiratory Pattern Regular Regular Blood Pressure 125/76 Blood Pressure [Right Arm] 130/76 Blood Pressure Mean 92 Blood Pressure Mean [Right Arm] 94 Blood Pressure Position Sitting Blood Pressure Position [Right Arm] Sitting Pulse Oximetry 99 97 98 Oxygen Delivery Method Room Air Room Air Room Air Sepsis Recent Fever Within 48 Hours No Sepsis New/Unexplained Change in Mental Status No Sepsis Action Taken by Nursing No Action Required 06/12/23 08:57 06/12/23 09:30 06/12/23 11:15 Temperature Temperature Source Pulse Rate 61 Pulse Rate [Apical] 68 84 Pulse Rhythm Pulse Rhythm [Apical] Regular Regular Pulse Strength [Apical] Normal Normal Respiratory Rate 18 20 Respiratory Effort / Characteristics Non-Labored Spontaneous Non-Labored Spontaneous Respiratory Depth Normal Normal Respiratory Pattern Regular Regular Blood Pressure Blood Pressure [Right Arm] 120/74 126/62 Blood Pressure Mean Blood Pressure Mean [Right Arm] 89 83 Blood Pressure Position Blood Pressure Position [Right Arm] Sitting Sitting Pulse Oximetry 97 96 Oxygen Delivery Method Room Air Room Air Sepsis Recent Fever Within 48 Hours Sepsis New/Unexplained Change in Mental Status Sepsis Action Taken by Nursing CONSTITUTIONAL: Healthy and well nourished. Alert and oriented X 3. Patient does not appear in any acute distress. HEENT: No scleral icterus or conjunctival injection/pallor. NECK: Full active range of motion without discomfort. LYMPHATICS: No cervical chain adenopathy. RESPIRATORY: Clear to auscultation bilaterally with no wheezing, crackles, rhonchi or stridor. CARDIOVASCULAR: Regular rate and rhythm with no murmurs, rubs or gallops. GASTROINTESTINAL: Bowel sounds present in all quadrants. Abdomen is soft and nontender to palpation. MUSCULOSKELETAL: Examination of the right lower extremity does not show any soft tissue edema, erythema or increased warmth to palpation about the knee. Passive flexion and extension of the knee does not worsen discomfort. Pedal pulses are intact. INTEGUMENTARY: No rash or other significant dermatologic conditions noted. HEMATOLOGIC: No ecchymosis or petechiae. PSYCHIATRIC: Positive affect. NEUROLOGIC: Right lower extremity is sensory intact. No focal neurologic deficits noted. Course Course Patient history and physical exam were performed. Nurses notes were reviewed. Vital signs were reviewed and were normal. IV access was established, and labs are drawn. The patient was hydrated with a liter normal saline, and administered IV morphine, Toradol and Zofran. Review of labs shows a hemoglobin of 12.5, with prior hemoglobin levels actually being lower than this with his prior admission. Reticulocyte count is 2.9. Coagulation studies are normal. CMP shows notably elevated AST and ALT of 501 and 136, respectively. An ECG was performed and was normal. The patient was placed on song writer while in the emergency department without any dysrhythmias with monitor review. X-rays of the right knee were normal. A portable chest x-ray was also normal. Findings were discussed with Dr. Goff, ED attending physician. I also discussed findings with the patient, especially regarding any recent alcohol or Tylenol use. The patient reports that he did drink 5-6 mixed drinks Dave (3 days ago), but had no further alcohol consumption over the weekend. He was taking some ibuprofen and Tylenol as well, but denies taking more than Tylenol 3000 mg in a 24-hour period of time. For completeness, I did drawl a Tylenol level that was undetectable. I also ordered a hepatitis panel, with results currently pending. I also recommended performing an ultrasound of the abdomen to look for any concerning liver findings, including portal vein thrombosis, and to recheck the spleen. Portal vein ultrasound was normal, with abdominal ultrasound showing persistent splenomegaly, and per radiologist read, a subcapsular hypoechoic focus within the posterior aspect of the spleen, favoring a splenic infarct that he feels is possibly chronic. Liver otherwise looks normal. At this point, Dr. Goff felt that a consultation with the hospitalist service was warranted. I then discussed the case with the [facility] hospitalist service, who agreed to at least an observation to trend the patient's LFTs. The patient was in agreement with this plan as well. It is noted that the patient does not have a local provider to follow-up with his sickle cell disease. The patient also admits that he was supposed to set up an appointment with a [facility] engraver wood in [place] after his last admission, and has not done so. Please see hospitalist dictations for further treatment and final disposition. The patient did report adequate pain relief prior to transfer of care to the hospitalist service. Administered Medications Sodium Chloride (Nss) 1,000 mls @ 100 mls/hr IV .Q10H STERLING Stop: 06/13/23 08:14 Last Admin: 06/12/23 12:46 Dose: 100 mls/hr Documented By: APPLE Morphine Sulfate (Morphine Sulfate 4 Mg/Ml 1 Ml Carp\Vial) 4 mg IV Q4H PRN PRN Reason: Pain Stop: 06/26/23 12:02 Last Admin: 06/12/23 12:46 Dose: 4 mg Documented By: APPLE Discontinued Medications Sodium Chloride (Nss) 1,000 mls @ 999 mls/hr IV .Q1H1M ONE Stop: 06/12/23 08:52 Last Infusion: 06/12/23 09:48 Dose: 0 mls/hr Documented By: Admin: 06/12/23 08:21 Dose: 999 mls/hr Documented By: APPLE Sodium Chloride (Nss) 1,000 mls @ 999 mls/hr IV .Q1H1M ONE Stop: 06/12/23 11:21 Last Infusion: 06/12/23 11:49 Dose: 0 mls/hr Documented By: Admin: 06/12/23 10:30 Dose: 999 mls/hr Documented By: APPLE Ioversol (Ioversol 350 Mg 125ml Prefilled Syringe) 119 ml IV ONCE ONE Stop: 06/12/23 15:31 Last Admin: 06/12/23 15:31 Dose: 119 ml Documented By: YOVANI Ketorolac Tromethamine (Ketorolac Tromethamine 15 Mg/Ml Vial) 15 mg IV NOW STA Stop: 06/12/23 07:53 Last Admin: 06/12/23 08:22 Dose: 15 mg Documented By: APPLE Morphine Sulfate (Morphine Sulfate 10 Mg/Ml Carp/Vial) 6 mg IV NOW STA Stop: 06/12/23 07:53 Last Admin: 06/12/23 08:22 Dose: 6 mg Documented By: APPLE Ondansetron HCl (Ondansetron Inj 2 Mg/Ml 2 Ml Vial) 4 mg IV NOW STA Stop: 06/12/23 07:53 Last Admin: 06/12/23 08:22 Dose: 4 mg Documented By: APPLE Medical Decision Making Medical Records Attestation: I reviewed the patient's medical records. Home Medications was personally reviewed by me Laboratory Data Attestation: I reviewed the patient's lab results. 06/12/23 08:00 06/12/23 08:00 Lab Results 06/12/23 06/12/23 06/12/23 Range/Units 08:00 08:00 08:00 WBC 8.12 (4.8-10.8) K/ul RBC 4.89 (4.70-6.10) M/uL Hgb 12.5 L (14.0-18.0) g/dl Hct 33.9 L (42.0-52.0) % MCV 69.3 L (80.0-100.0) fL MCH 25.6 (25.0-34.0) pg MCHC 36.9 H (32.0-36.0) g/dL RDW Std Deviation 42.4 (36.4-46.3) fL RDW Coeff of Wendi 17.4 H (11.5-14.5) % Plt Count 160 (130-400) K/uL MPV 10.1 (9.4-12.4) fL Immature Gran % (Auto) 0.7 % Neut % (Auto) 70.8 % Lymph % (Auto) 19.2 % [place] % (Auto) 7.3 % Eos % (Auto) 1.5 % Baso % (Auto) 0.5 % Reticulocyte % (Auto) 3.3 H (0.5-2.0) % Neut # (Auto) 5.75 (1.40-6.50) K/uL Lymph # (Auto) 1.56 (1.20-3.40) K/uL [place] # (Auto) 0.59 (0.11-0.59) K/uL Eos # (Auto) 0.12 (0.00-0.50) K/uL Baso # (Auto) 0.04 (0.00-0.20) K/uL Reticulocyte # 0.16 H (0.02-0.10) 10^6/uL Immature Gran # (Auto) 0.06 (0.01-0.20) K/uL Polychromasia 2+ Hypochromasia Present Target Cells 2+ PT 10.9 (9.0-12.0) Seconds INR 1.0 (0.9-1.1) APTT 25.1 (21.0-31.0) Seconds PTT Ratio 0.9 Sodium 137 (136-145) mmol/L Potassium 3.8 (3.5-5.1) mmol/L Chloride 106 (98-107) mmol/L Carbon Dioxide 27 (21-32) mmol/L Anion Gap 4 (3-11) BUN 18 (6-23) mg/dl Creatinine 0.79 (0.6-1.4) mg/dl Est Cr Clr Drug Dosing 165.4 ml/min Est GFR ( Amer) 148.8 ml/min Est GFR (Non-Af Amer) 128.4 ml/min BUN/Creatinine Ratio 22.8 H (10-20) Glucose 93 (70-99(Fasting)) mg/dl Calcium 8.7 (8.6-10.3) mg/dl Total Bilirubin 0.8 (0.2-1.0) mg/dl AST 501 H (13-39) U/L ALT 136 H (7-52) U/L Alkaline Phosphatase 38 (34-104) U/L Total Protein 6.4 (6.0-8.3) gm/dl Albumin 4.1 (3.4-5.0) gm/dl Globulin 2.3 L (2.5-4.0) gm/dl Albumin/Globulin Ratio 1.8 (0.9-2) Imaging Data Attestation: I personally reviewed and interpreted this imaging study as follows: My Impression: My interpretation of a portable chest x-ray does not show any consolidations, pneumothorax or obvious cardiomegaly. My interpretation of right knee x-rays does not show evidence for joint effusion, degenerative changes, fractures or dislocations. My interpretation of a portal vein ultrasound does not show any obvious thrombosis. My interpretation of an ultrasound of the abdomen does not show any obvious liver findings. Patient does have an abnormal appearance of the posterior aspect of the spleen, with the radiologist favoring a splenic infarct. Radiologist reports were also reviewed with concurrence. Radiologist's Impression: Chest X-Ray 06/12/23 08:17 XR chest 1V portable CLINICAL HISTORY: sickle cell flare COMPARISON STUDY: Chest radiograph January 01, 2023. FINDINGS: Lung volumes are normal. Lungs are clear. There is no pneumothorax or pleural effusion. Cardiac size is normal. Mediastinal contours are normal. There is no evidence for pulmonary edema. IMPRESSION: No acute cardiopulmonary findings. ACT 112: Negative or not required by law. Electronically signed by: Nash Burgos M.D. 06/12/2023 9:41 AM Knee X-Ray 06/12/23 08:17 XR knee RT 3V CLINICAL HISTORY: R knee pain COMPARISON STUDY: None. FINDINGS: No fracture or dislocation within the right knee. Soft tissues are unremarkable. No radiopaque foreign bodies. No knee effusion. IMPRESSION: No fracture or dislocation within the right knee. ACT 112: Negative or not required by law. Electronically signed by: Sheng Toro M.D. 06/12/2023 9:35 AM Abdomen Ultrasound 06/12/23 10:21 ABDOMINAL ULTRASOUND HISTORY: Eval elev LFTs, splenic sequestration, h/o sickle cell. COMPARISON: CT of the abdomen and pelvis January 01, 2023. TECHNIQUE: Sonography of the right upper quadrant and the spleen was performed. FINDINGS: The liver is sonographically normal. There is no biliary ductal dilatation. The gallbladder is normal. There are no gallstones. No pancreatic abnormality is present. There is no right hydronephrosis. The spleen is enl arged, measuring 18 cm in maximal sagittal dimension. This is similar to CT of January 01, 2023. Note is made of a 5.1 x 4.3 x 4.2 cm subcapsular hypoechoic focus within the posterior midportion of the spleen. This portion of the spleen contains no color flow. This may been present on CT of January 01, 2023. The remainder of the abnormalities within the spleen on CT are not evident by sonography. There is no perisplenic fluid. IMPRESSION: 1. Moderate splenomegaly, similar to CT of January 01, 2023. 2. 5.1 x 4.3 x 4.2 cm subcapsular hypoechoic focus within the posterior aspect of the spleen. This favors a splenic infarct. Although age indeterminate, this was likely present on CT of January 01, 2023 and may be chronic. 3. No abnormality within the right upper quadrant. ACT 112: Negative or not required by law. Electronically signed by: Nash Burgos M.D. 06/12/2023 11:39 AM Portal Vein US 06/12/23 10:42 US duplex portal hepatic veins CLINICAL HISTORY: Transaminitis, history of sickle cell disease COMPARISON STUDY: Abdomen and pelvis CT 01/01/2023. FINDINGS: The portal and hepatic veins appear patent and demonstrate a normal direction of flow. No hepatic masses identified. IMPRESSION: No evidence for portal vein thrombosis. ACT 112: Negative or not required by law. Electronically signed by: Sheng Toro M.D. 06/12/2023 11:41 AM ECG Data Attestation: I personally reviewed and interpreted this ECG as follows: Indication: + other (Sickle cell) Rate (beats per minute): 89 Rhythm: + normal sinus and + sinus rhythm ECG Intervals/blocks: + Normal QRS, + Normal QT and + Normal DC ECG [place]: + Normal ECG ST segments: + Normal ST segments Comparison ECG Date: from (01/01/2023) Change: no significant change MDM Narrative Cardiac monitoring: An order was placed for continuous cardiac monitoring. The monitor shows a rate of 89 bpm with a normal sinus rhythm. marketing content coordinator history was reviewed throughout the evaluation, and no dysrhythmias were noted. See ED Course section for further details of today's visit. The patient presents with concern for a sickle cell flare. The patient complains of right knee pain, and reports that this is common when he has sickle cell flares. It is noted that the patient was admitted to our facility in December with abdominal pain, but denies any abdominal pain at this time. Review of labs did show a transaminitis. The patient did drink alcohol 3 days ago, as well as Tylenol use, but denies taking more than Tylenol 3 g within a 24-hour period of time. His Tylenol level today is undetectable. Ultrasound did not show any concerning hepatic findings, but does have a splenic infarct of indeterminate age. Given the patient's abnormal findings, and history of sickle cell, I did recommend close monitoring and trending of his LFT levels. Impression Elevated liver transaminase level, Splenic sequestration, Sickle cell disease Discharge Plan Visit Data Chief Complaint: Leg Injury/Pain Stated Complaint: RIGHT LEG PAIN ED Provider: Tammi Goff ED Midlevel Provider: Jayden Hassan Discharge Problem: Elevated liver transaminase level, Splenic sequestration, Sickle cell disease Patient Disposition: Admitted As Inpatient Discharge Instructions Interventions: ED Discharge Assessment Last Done: 06/12/23 13:11
[2023-06-12 08:40] LABS: Basophils # (auto) 0.04 K/uL (0.00-0.20); Basophils % (auto) 0.5 %; Eosinophils # (auto) 0.12 K/uL (0.00-0.50); Eosinophils % (auto) 1.5 %; Hematocrit (blood only) 33.9 % (42.0-52.0); Hemoglobin 12.5 g/dl (14.0-18.0); Immature Granulocytes # (auto) 0.06 K/uL (0.01-0.20); Immature Granulocytes % (auto) 0.7 %; Lymphocytes # (auto) 1.56 K/uL (1.20-3.40); Lymphocytes % (auto) 19.2 %; Mean Corpuscular Hemoglobin 25.6 pg (25.0-34.0); Mean Corpuscular Hgb Conc 36.9 g/dL (32.0-36.0); Mean Corpuscular Volume 69.3 fL (80.0-100.0); Monocytes # (auto) 0.59 K/uL (0.11-0.59); Monocytes % (auto) 7.3 %; Neutrophils # (auto) 5.75 K/uL (1.40-6.50); Neutrophils % (auto) 70.8 %; RDW Coefficient of Variation 17.4 % (11.5-14.5); RDW Standard Deviation 42.4 fL (36.4-46.3); Red Blood Count 4.89 M/uL (4.70-6.10); Reticulocyte % 3.3 % (0.5-2.0); Reticulocytes # 0.16 10^6/uL (0.02-0.10); White Blood Count 8.12 K/ul (4.8-10.8)
[2023-06-12 08:41] LABS: Albumin Globulin Ratio 1.8 (0.9-2); Albumin Level 4.1 gm/dl (3.4-5.0); BUN Creatinine Ratio 22.8 (10-20); Bilirubin,Total 0.8 mg/dl (0.2-1.0); Calcium 8.7 mg/dl (8.6-10.3); Creatinine Clr Calc Pharmacy 165.4 ml/min; Est GFR (African American) 148.8 ml/min; Est GFR (Non-African American) 128.4 ml/min; Globulin 2.3 gm/dl (2.5-4.0); Potassium 3.8 mmol/L (3.5-5.1); Total Protein 6.4 gm/dl (6.0-8.3)
[2023-06-12 08:50] LABS: Mean Platelet Volume 10.1 fL (9.4-12.4); Platelet Count 160 K/uL (130-400)
[2023-06-12 08:51] LABS: Partial Thromboplastin Ratio 0.9; Partial Thromboplastin Time 25.1 Seconds (21.0-31.0); Prothrombin Time 10.9 Seconds (9.0-12.0)
[2023-06-12 09:13] LABS: Hypochromasia Present; Polychromasia 2+; Target Cells 2+
--- NOTE | 2023-06-12 09:37 | XRay Report ---
XR knee RT 3V CLINICAL HISTORY: R knee pain COMPARISON STUDY: None. FINDINGS: No fracture or dislocation within the right knee. Soft tissues are unremarkable. No radiopa que foreign bodies. No knee effusion. IMPRESSION: No fracture or dislocation within the right knee. ACT 112: Negative or not required by law. Electronically signed by: Sheng Toro M.D. 06/12/2023 9:35 AM
--- NOTE | 2023-06-12 09:42 | XRay Report ---
XR chest 1V portable CLINICAL HISTORY: sickle cell flare COMPARISON STUDY: Chest radiograph January 01, 2023. FINDINGS: Lung volumes are normal. Lungs are clear. There is no pneumothorax or pleural effusion. Car diac size is normal. Mediastinal contours are normal. There is no evidence for pulmonary edema. IMPRESSION: No acute cardiopulmonary findings. ACT 112: Negative or not required by law. Electronically signed by: Nash Burgos M.D. 06/12/2023 9:41 AM
--- NOTE | 2023-06-12 11:03 | History & Physical Report ---
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 He also c/o chest pain, which is a new complaint and not consistent with prior episodes of symptoms. On work-up in the ED, he was noted to have elevations of the AST/ALT of unclear etiology so referred for admission. Of note, pt did consume multiple drinks of hard liquor three days ago, then several doses of Tylenol two days ago, but otherwise denies potential insults to the liver. Denies symptoms of infectious hepatitis. Elevations may be due to hepatopathy from sickle cell crisis - Admit for further pain control and evaluation - Liver U/S with Doppler pending - Consult hematology for additional recommendations for management of sickle cell - Check LDH, haptoglobin, and total CK - Serial CBC and LFTs - Tylenol level pending - IVF hydration - Pain control with IV morphine - limit Tylenol and NSAIDs due to abnormal LFTs - Low threshold for GI consult pending trend of LFTs, results of work-up (2) Sickle cell disease: (3) Splenic sequestration: Plan Continue other home medications as appropriate. Pt seen and reviewed with collaborating physician, Dr. Donahue. Plan of care discussed and as outlined above. Code Status: Full Code Bertin Miranda PA-C History of Present Illness Chief Complaint: knee pain Primary Care Provider: [facility] This is a 22 y/o male with with a history of sickle cell disease with prior splenic sequestration who presents to the ED with joint pain which is consistent with prior episodes of sickle cell crisis. Pt reports that Monday night, he was drinking with friends and had at least six shots of whiskey. Monday, he had a headache so he took several doses of Tylenol - was taking 2-3 tabs every 6 hours. Monday, the headache was better and he was feeling mostly back to baseline. However, Monday evening (last night), while doing homework, he noticed pain in his hips similar to prior episodes of sickle cell crisis. The pain has since moved to his right knee - feels like it is under the kneecap. This morning he also developed chest pain, which he reports is unusual for him so he decided to come to the ED. He took another Tylenol and a dose of oxycodone around 1 am, which only partially relieved pain. He reports his last similar episode of joint pain was over the summer (). He was admitted to this facility in December for abdominal symptoms related to the sickle cell and was noted to have splenic sequestration on imaging, saw hematology while admitted. 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 He does note having URI symptoms about a week ago but these have improved. Allergies Allergy/AdvReac Type Severity Reaction Status Date / Time No Known Allergies Allergy Unverified 01/01/23 09:58 Home Medications Medication Instructions Recorded Confirmed Type albuterol sulfate 90 mcg/actuation 2 puff inhalation Q6H PRN 01/01/23 06/12/23 History aerosol inhaler Shortness Of Breath Or Wheezing fluticasone propionate 50 2 spray intranasal DAILY PRN 01/01/23 06/12/23 History mcg/actuation nasal allergies spray,suspension folic acid 1 mg tablet 1 mg PO DAILY 01/01/23 06/12/23 History methylphenidate HCl 10 mg tablet 10 mg PO UD 01/01/23 06/12/23 History methylphenidate HCl 36 mg 36 mg PO UD 01/01/23 06/12/23 History tablet,extended release 24 hr montelukast 10 mg tablet 10 mg PO DAILY 01/01/23 06/12/23 History oxycodone 5 mg tablet 5 mg PO Q6H PRN pain #7 tabs 01/03/23 06/12/23 Rx fexofenadine 180 mg tablet 180 mg PO DAILY 06/12/23 06/12/23 History omeprazole 40 mg capsule,delayed 40 mg PO DAILY 06/12/23 06/12/23 History release Past Med/Surg History Medical History Asthma Sickle cell disease Surgical History No pertinent past surgical history Family History Other Deep vein thrombosis Social History Smoking Status: Never smoker Hx Alcohol Use: Yes Alcohol type: hard liquor Alcohol Intake Frequency: 2-4 x/Month Hx Substance Use: No Preferred Language: Kazakh Communication Ability: Effective Business Intelligence Administrator Required: No Beliefs That Will Affect Care: None Current Living Situation: Family Current Living Situation Comment: [employer] current occupational status: student Other Information That Helps Us Care for You: No Feels Safe at Home: Yes Safety Concerns: Feels Safe At This Time Assistive Devices: Glasses Review of Systems Review of Systems: All systems reviewed & are unremarkable except as noted in HPI & below Constitutional: no fever Eyes: no diplopia Respiratory: no cough and no dyspnea Cardiovascular: + chest pain; no palpitations, no syncope and no edema Gastrointestinal: no abdominal pain, no nausea, no vomiting and no diarrhea/loose stools Genitourinary: no dysuria or no hematuria Musculoskeletal: + joint pain Integumentary: no rash Neurologic: no generalized weakness and no dizziness Physical Exam Constitutional: well developed and well nourished; no acute distress Eyes: + anicteric sclerae Neck: trachea midline Respiratory: no respiratory distress and no labored breathing Auscultation: lungs clear to auscultation bilaterally; no rales, no rhonchi and no wheezes Cardiovascular: Rate/Rhythm: regular rate and regular rhythm Vessels: radial pulses present Extremities: no pedal edema Gastrointestinal (Abdomen): Inspection/Auscultation: normal bowel sounds; abdomen not distended Percussion/Palpation: abdomen soft; abdomen nontender Musculoskeletal: Head/Neck/Chest: normocephalic, head atraumatic and neck supple Knee: + joint line tenderness (mild right); no deformity, no effusion and no ecchymosis Skin: no jaundice Neurologic: moves all extremities; no focal motor deficits and not confused Psychiatric: A+Ox3, euthymic affect Results & Data Results & Data Vital Signs (Past 12 Hours) Vital Signs Temp Pulse Pulse Resp BP BP Pulse Ox 06/12/23 09:30 68 18 120/74 97 06/12/23 08:57 61 06/12/23 07:52 78 18 98 06/12/23 07:46 80 20 130/76 97 06/12/23 07:33 36.7 C 105 H 18 125/76 99 O2 Del Method 06/12/23 09:30 Room Air 06/12/23 08:57 06/12/23 07:52 Room Air 06/12/23 07:46 Room Air 06/12/23 07:33 Room Air Laboratory Results Laboratory Results - last 24 hr 06/12/23 06/12/23 06/12/23 08:00 08:00 08:00 WBC 8.12 RBC 4.89 Hgb 12.5 L Hct 33.9 L MCV 69.3 L MCH 25.6 MCHC 36.9 H RDW Std Deviation 42.4 RDW Coeff of Wendi 17.4 H Plt Count 160 MPV 10.1 Immature Gran % (Auto) 0.7 Neut % (Auto) 70.8 Lymph % (Auto) 19.2 Sandoval % (Auto) 7.3 Eos % (Auto) 1.5 Baso % (Auto) 0.5 Reticulocyte % (Auto) 3.3 H Neut # (Auto) 5.75 Lymph # (Auto) 1.56 Sandoval # (Auto) 0.59 Eos # (Auto) 0.12 Baso # (Auto) 0.04 Reticulocyte # 0.16 H Immature Gran # (Auto) 0.06 Polychromasia 2+ Hypochromasia Present Target Cells 2+ PT 10.9 INR 1.0 APTT 25.1 PTT Ratio 0.9 Sodium 137 Potassium 3.8 Chloride 106 Carbon Dioxide 27 Anion Gap 4 BUN 18 Creatinine 0.79 Est Cr Clr Drug Dosing 165.4 Est GFR ( Amer) 148.8 Est GFR (Non-Af Amer) 128.4 BUN/Creatinine Ratio 22.8 H Glucose 93 Calcium 8.7 Total Bilirubin 0.8 AST 501 H ALT 136 H Alkaline Phosphatase 38 Total Protein 6.4 Albumin 4.1 Globulin 2.3 L Albumin/Globulin Ratio 1.8 Diagnostic Findings Chest X-Ray 06/12/23 08:17 XR chest 1V portable CLINICAL HISTORY: sickle cell flare COMPARISON STUDY: Chest radiograph January 01, 2023. FINDINGS: Lung volumes are normal. Lungs are clear. There is no pneumothorax or pleural effusion. Cardiac size is normal. Mediastinal contours are normal. There is no evidence for pulmonary edema. IMPRESSION: No acute cardiopulmonary findings. ACT 112: Negative or not required by law. Electronically signed by: Nash Burgos M.D. 06/12/2023 9:41 AM Knee X-Ray 06/12/23 08:17 XR knee RT 3V CLINICAL HISTORY: R knee pain COMPARISON STUDY: None. FINDINGS: No fracture or dislocation within the right knee. Soft tissues are unremarkable. No radiopaque foreign bodies. No knee effusion. IMPRESSION: No fracture or dislocation within the right knee. ACT 112: Negative or not required by law. Electronically signed by: Sheng Toro M.D. 06/12/2023 9:35 AM Medications Administered Sodium Chloride (Nss) 1,000 mls @ 999 mls/hr IV .Q1H1M ONE Stop: 06/12/23 11:21 Last Admin: 06/12/23 10:30 Dose: 999 mls/hr Documented By: APPLE Discontinued Medications Sodium Chloride (Nss) 1,000 mls @ 999 mls/hr IV .Q1H1M ONE Stop: 06/12/23 08:52 Last Infusion: 06/12/23 09:48 Dose: 0 mls/hr Documented By: Admin: 06/12/23 08:21 Dose: 999 mls/hr Documented By: APPLE Ketorolac Tromethamine (Ketorolac Tromethamine 15 Mg/Ml Vial) 15 mg IV NOW STA Stop: 06/12/23 07:53 Last Admin: 06/12/23 08:22 Dose: 15 mg Documented By: APPLE Morphine Sulfate (Morphine Sulfate 10 Mg/Ml Carp/Vial) 6 mg IV NOW STA Stop: 06/12/23 07:53 Last Admin: 06/12/23 08:22 Dose: 6 mg Documented By: APPLE Ondansetron HCl (Ondansetron Inj 2 Mg/Ml 2 Ml Vial) 4 mg IV NOW STA Stop: 06/12/23 07:53 Last Admin: 06/12/23 08:22 Dose: 4 mg Documented By: APPLE Supervising Physician Co-Signing Physician Notes Pt seen and examined by myself, Nadine Donahue MD on the day of service. Care was coordinated with Aleah Miranda PA-C. 22yoM with Hx of sickle cell anemia and sickle cell crises presenting with extreme pain in the chest and R knee. 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 Chest XRAY and chest CTA grossly unremarkable Abdomen US noted possible chronic spelnic infarct, portal vein US with no noted thrombosis. R knee xray unremarkable. CK significantly elevated at 25,522, IV fluids started. Pain control. Heme/onc consult- appreciate recs Otherwise as above.
--- NOTE | 2023-06-12 11:40 | Ultrasound Report ---
ABDOMINAL ULTRASOUND HISTORY: Eval elev LFTs, splenic sequestration, h/o sickle cell. COMPARISON: CT of the abdomen and pelvis January 01, 2023. TECHNIQUE: Sonography of the right upper quadrant and the spleen was performed. FINDINGS: The liver is sonographically normal. There is no biliary ductal dilatation. The gallbladder is normal. There are no gallstones. No pancreatic abnormality is present. There is no right hydronep hrosis. The spleen is enlarged, measuring 18 cm in maximal sagittal dimension. This is similar to CT of January 01, 2023. Note is made of a 5.1 x 4.3 x 4.2 cm subcapsular hypoechoic focus within the neurocritical care physician ior midportion of the spleen. This portion of the spleen contains no color flow. This may been presen t on CT of January 01, 2023. The remainder of the abnormalities within the spleen on CT are not evident by sonography. There is no perisplenic fluid. IMPRESSION: 1. Moderate splenomegaly, similar to CT of January 01, 2023. 2. 5.1 x 4.3 x 4.2 cm subcapsular hypoechoic focus within the posterior aspect of the spleen. This fa vors a splenic infarct. Although age indeterminate, this was likely present on CT of January 01, 2023 an d may be chronic. 3. No abnormality within the right upper quadrant. ACT 112: Negative or not required by law. Electronically signed by: Nash Burgos M.D. 06/12/2023 11:39 AM
--- NOTE | 2023-06-12 11:42 | Ultrasound Report ---
US duplex portal hepatic veins CLINICAL HISTORY: Transaminitis, history of sickle cell disease COMPARISON STUDY: Abdomen and pelvis CT 01/01/2023. FINDINGS: The portal and hepatic veins appear patent and demonstrate a normal direction of flow. No h epatic masses identified. IMPRESSION: No evidence for portal vein thrombosis. ACT 112: Negative or not required by law. Electronically signed by: Sheng Toro M.D. 06/12/2023 11:41 AM
[2023-06-12 12:07] LABS: Reticulocyte % 2.9 % (0.5-2.0); Reticulocytes # 0.13 10^6/uL (0.02-0.10)
--- NOTE | 2023-06-12 12:11 | Electrocardiogram Report ---
Test Reason : Blood Pressure : / mmHG Vent. Rate : 089 BPM Atrial Rate : 089 BPM P-R Int : 132 ms QRS Dur : 096 ms QT Int : 352 ms P-R-T Axes : 068 026 013 degrees QTc Int : 428 ms Normal sinus rhythm Normal ECG When compared with ECG of 01-JAN-2023 08:53, No significant change was found Confirmed by Lucas Parr ([id number]) on 06/12/2023 12:11:26 PM Referred By: REFERRED SELF Confirmed By:Lucas Parr
[2023-06-12] MEDS: SODIUM CHLORIDE 0.9% 1,000 ML IV SCH ×2 (12:46→23:00)
[2023-06-12] MEDS: MoRPHine SULFATE 4 MG/ML 1 ML CARP\\VIAL IV PRN ×2 (12:46→17:45)
[2023-06-12 12:53] LABS: Creatine Kinase 25522 U/L (30-223); Lactate Dehydrogenase 1477 U/L (86-244)
[2023-06-12] MEDS ORDERED: ALBUTEROL HFA 8 GM INHALER INH PRN (13:10)
[2023-06-12] MEDS ORDERED: IOVERSOL 350 MG 125mL Prefilled Syringe IV ONE (15:30)
--- NOTE | 2023-06-12 15:56 | CT Scan Report ---
CT ANGIOGRAPHY OF THE CHEST, PULMONARY EMBOLUS PROTOCOL CLINICAL HISTORY: Shortness of breath. Sickle cell disease. COMPARISON STUDY: Chest radiograph January 01, 2023 and June 12, 2023. CT of the abdomen and pelvi s January 01, 2023. TECHNIQUE: Following IV administration of 119 mL of Optiray, helical axial images of the chest were o btained utilizing the pulmonary embolus protocol. Maximal intensity projections and sagittal and cor onal reformats were viewed on an independent 3D workstation. IV contrast was administered without co mplication. Automated exposure control was utilized for the study. A dose lowering technique was ut ilized adhering to the principles of ALARA. CT DOSE: 739.15 mGy.cm FINDINGS: No pulmonary emboli are identified. There is no thoracic aortic dissection. Size of the he art is within normal limits. There is no pericardial effusion. There is no thoracic lymphadenopathy. No pneumothorax or pleural effusion is present. No airspace opacities within the lungs are identified . No acute fractures within the bony thorax. There is mild soft tissue edema within the chest wall an d axilla. This is of questionable significance. Splenomegaly is partially imaged. Bandlike hypodensit y within the posterior medial aspect of the spleen with volume loss corresponds to the finding on ult rasound performed earlier today and CT of January 01, 2023. This suggests old splenic infarct. IMPRESSION: 1. No pulmonary emboli identified. 2. No acute intrathoracic findings. 3. Splenomegaly with suspected old infarcts within the posterior medial aspect of the spleen. ACT 112: Negative or not required by law. Electronically signed by: Nash Burgos M.D. 06/12/2023 3:54 PM
[2023-06-12] MEDS: METHYLPHENIDATE HCL 10 MG TABLET PO SCH (17:19)
[2023-06-12] MEDS: CONCERTA~ORDER AWAITING ACTION SCH (17:20)
--- NOTE | 2023-06-12 17:52 | Oncology Consultation ---
Date of Consultation June 12, 2023 Assessment & Plan (1) Sickle cell disease: (2) Elevated liver transaminase level: (3) Rhabdomyolysis: Plan Pleasant 22-year-old gentleman with history of sickle cell disease who presented with right lower extremity pain and chest pain. Labs showed elevated LFTs, CPK and LDH with normal bilirubin and appropriately elevated reticulocyte count. 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 Labs on admission showed elevated hemoglobin of 12 likely hemoconcentration from dehydration. Sickle cell crisis likely triggered by dehydration and rhabdomyolysis. Agree with IV fluids with normal saline 125 mL/h x 24 hours after which IV fluids can be decreased to 75 mL/h and subsequently discontinued if he is hydrating appropriately by mouth. This should also help improve rhabdomyolysis -Agree with IV morphine for now for sickle cell pain crisis -No concern at this time for sequestration crisis or acute chest syndrome given unremarkable labs and normal chest imaging. Also no significant hemolysis given normal bilirubin -Recommend incentive spirometer -Elevated LFTs likely due to rhabdomyolysis. Management/work-up of rhabdo myolysis per primary team. -Consider DVT prophylaxis to reduce risk of DVT in the setting of sickle cell disease, rhabdomyolysis and reduced ambulation Thank you for this consult. Hematology continue following patient while in the hospital. Please feel free to call if you have any other questions History of Present Illness Reason for Consultation: Sickle cell disease Attending Physician: Nadine Donahue MD History of Present Illness 22-year-old male with sickle cell Hb SC disease? followed by [facility] Hematology, Pablo. He presented to [facility] ER with complaints of right lower extremity pain and chest pain. States that he recently started working out again, was out in the sun pretty much throughout the weekend, had several mixed drinks and did not drink as much water as he is used to over the weekend. On arrival to the ER, labs revealed Hemoglobin of 12.5, hematocrit of 33.9, MCV of 69.3 with reticulocyte percentage of 3.3 and absolute reticulocyte count of 0.16. Labs also revealed elevated AST of 501, ALT of 136 with LDH of 1477 and creatinine kinase of 25,522. Bilirubin was normal at 0.8. Chest x-ray revealed no acute cardiopulmonary findings. Abdominal ultrasound revealed stable moderate splenomegaly with 5.1 x 4.3 x 4.2 cm in the posterior aspect of the spleen favoring splenic infarct. Ultrasound portal vein was negative for portal vein thrombosis. CTA chest revealed no pulmonary emboli as well as splenomegaly with suspected old infarct within posterior medial aspect of the spleen. He denies illicit drug use. States that he usually uses oxycodone 5 mg p.o. every 6 hours as needed for sickle cell crisis pain. Currently getting morphine 4 mg IV every 4 hours as needed for pain. Allergies Allergy/AdvReac Type Severity Reaction Status Date / Time No Known Allergies Allergy Unverified 01/01/23 09:58 Home Medications Medication Instructions Recorded Confirmed Type albuterol sulfate 90 mcg/actuation 2 puff inhalation Q6H PRN 01/01/23 06/12/23 History aerosol inhaler Shortness Of Breath Or Wheezing fluticasone propionate 50 2 spray intranasal DAILY PRN 01/01/23 06/12/23 History mcg/actuation nasal allergies spray,suspension folic acid 1 mg tablet 1 mg PO DAILY 01/01/23 06/12/23 History methylphenidate HCl 10 mg tablet 10 mg PO UD 01/01/23 06/12/23 History methylphenidate HCl 36 mg 36 mg PO UD 01/01/23 06/12/23 History tablet,extended release 24 hr montelukast 10 mg tablet 10 mg PO DAILY 01/01/23 06/12/23 History oxycodone 5 mg tablet 5 mg PO Q6H PRN pain #7 tabs 01/03/23 06/12/23 Rx fexofenadine 180 mg tablet 180 mg PO DAILY 06/12/23 06/12/23 History omeprazole 40 mg capsule,delayed 40 mg PO DAILY 06/12/23 06/12/23 History release Patient History Medical History Asthma Sickle cell disease Surgical History No pertinent past surgical history Family History Other Deep vein thrombosis Social History Smoking Status: Never smoker Hx Alcohol Use: Yes Alcohol type: hard liquor Alcohol Intake Frequency: 2-4 x/Month Hx Substance Use: No Preferred Language: Uzbek Communication Ability: Effective Program Officer Required: No Beliefs That Will Affect Care: None Current Living Situation: Family Current Living Situation Comment: [employer] current occupational status: student Other Information That Helps Us Care for You: No Feels Safe at Home: Yes Safety Concerns: Feels Safe At This Time Assistive Devices: Glasses Results & Data Vital Signs (Past 12 Hours) Vital Signs Temp Pulse Pulse Pulse Resp BP BP 06/12/23 17:10 100 H 06/12/23 16:03 36.7 C 78 16 126/65 06/12/23 15:57 36.7 C 78 18 126/65 06/12/23 13:01 78 06/12/23 11:15 84 20 126/62 06/12/23 09:30 68 18 120/74 06/12/23 08:57 61 06/12/23 07:52 78 18 06/12/23 07:46 80 20 130/76 06/12/23 07:33 36.7 C 105 H 18 125/76 Pulse Ox O2 Del Method 06/12/23 17:10 06/12/23 16:03 99 Room Air 06/12/23 15:57 99 Room Air 06/12/23 13:01 06/12/23 11:15 96 Room Air 06/12/23 09:30 97 Room Air 06/12/23 08:57 06/12/23 07:52 98 Room Air 06/12/23 07:46 97 Room Air 06/12/23 07:33 99 Room Air
[2023-06-12 18:10] LABS: Hematocrit (blood only) 31.6 % (42.0-52.0); Hemoglobin 11.9 g/dl (14.0-18.0); Mean Corpuscular Hgb Conc 37.7 g/dL (32.0-36.0); Mean Corpuscular Volume 69.1 fL (80.0-100.0); Mean Platelet Volume 10.5 fL (9.4-12.4); Platelet Count 153 K/uL (130-400); RDW Coefficient of Variation 17.2 % (11.5-14.5); RDW Standard Deviation 42.8 fL (36.4-46.3); Red Blood Count 4.57 M/uL (4.70-6.10); White Blood Count 7.39 K/ul (4.8-10.8)
[2023-06-12 18:35] LABS: Albumin Level 3.8 gm/dl (3.4-5.0); Bilirubin Direct 0.2 mg/dl (0-0.2); Bilirubin,Total 0.8 mg/dl (0.2-1.0); Total Protein 5.8 gm/dl (6.0-8.3)
[2023-06-12 18:45] LABS: Adenovirus PCR Not Detected (NotDetected); Bordetella parapertussis PCR Not Detected (NotDetected); Bordetella pertussis PCR Not Detected (NotDetected); Chlamydia pneumoniae PCR Not Detected (NotDetected); Coronavirus 229E PCR Not Detected (NotDetected); Coronavirus CoV-2 (COVID19)PCR Not Detected (NotDetected); Coronavirus HKU1 PCR Not Detected (NotDetected); Coronavirus NL63 PCR Not Detected (NotDetected); Coronavirus OC43PCR Not Detected (NotDetected); Human Metapneumovirus PCR Not Detected (NotDetected); Influenza A PCR Not Detected (NotDetected); Influenza B PCR Not Detected (NotDetected); Mycoplasma pneumoniae PCR Not Detected (NotDetected); Parainfluenza Virus 1 PCR Not Detected (NotDetected); Parainfluenza Virus 2 PCR Not Detected (NotDetected); Parainfluenza Virus 3 PCR Not Detected (NotDetected); Parainfluenza Virus 4 PCR Not Detected (NotDetected); Respiratory Syncytial VirusPCR Not Detected (NotDetected); Rhinovirus/Enterovirus PCR Not Detected (NotDetected)
[2023-06-12] MEDS: oxyCODONE HCL IR 5 MG TAB (IMMEDIATE RELEASE) PO PRN (19:44)
[2023-06-13] MEDS: CONCERTA~ORDER AWAITING ACTION SCH ×3 (00:42→15:48)
[2023-06-13] MEDS: oxyCODONE HCL IR 5 MG TAB (IMMEDIATE RELEASE) PO PRN ×3 (03:19→20:35)
[2023-06-13] MEDS: METHYLPHENIDATE HCL 10 MG TABLET PO SCH (06:13)
[2023-06-13 07:13] LABS: Hematocrit (blood only) 31.4 % (42.0-52.0); Hemoglobin 11.3 g/dl (14.0-18.0); Mean Corpuscular Hemoglobin 25.6 pg (25.0-34.0); Mean Corpuscular Volume 71.2 fL (80.0-100.0); Mean Platelet Volume 10.6 fL (9.4-12.4); Platelet Count 143 K/uL (130-400); RDW Coefficient of Variation 17.2 % (11.5-14.5); RDW Standard Deviation 43.4 fL (36.4-46.3); Red Blood Count 4.41 M/uL (4.70-6.10); White Blood Count 6.04 K/ul (4.8-10.8)
[2023-06-13] MEDS: SODIUM CHLORIDE 0.9% 1,000 ML IV SCH ×2 (07:52→16:51)
[2023-06-13] MEDS: MoRPHine SULFATE 4 MG/ML 1 ML CARP\\VIAL IV PRN ×3 (07:52→21:58)
[2023-06-13] MEDS: FEXOFENADINE HCL 180 MG TAB PO SCH (07:55)
[2023-06-13] MEDS: FOLIC ACID 1 MG TAB PO SCH (07:55)
[2023-06-13] MEDS: ENOXAPARIN INJ 40 MG/0.4 ML SYR SQ SCH (07:56)
[2023-06-13] MEDS: PANTOprazole 40 MG TAB PO SCH (07:56)
[2023-06-13] MEDS: FLUTICASONE PROPIONATE NA SPR 16 GM BTL SCH (07:56)
[2023-06-13] MEDS: MONTELUKAST SODIUM 10 MG TABLET PO SCH (07:56)
[2023-06-13 07:57] LABS: Albumin Level 3.6 gm/dl (3.4-5.0); Bilirubin Direct 0.2 mg/dl (0-0.2); Bilirubin,Total 0.9 mg/dl (0.2-1.0); Total Protein 5.7 gm/dl (6.0-8.3)
[2023-06-13 14:17] LABS: HBSAG NON-REACTIVE (NON-REACTIVE); Haptoglobin <8 mg/dL (43-212); Hepatitis A Antibody IgM NON-REACTIVE (NON-REACTIVE); Hepatitis B Core Antibody IgM NON-REACTIVE (NON-REACTIVE)
--- NOTE | 2023-06-13 15:41 | Hospitalist Progress Note ---
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 He also c/o chest pain, which is a new complaint and not consistent with prior episodes of symptoms. On work-up in the ED, he was noted to have elevations of the AST/ALT of unclear etiology so referred for admission. Of note, pt did consume multiple drinks of hard liquor three days ago, then several doses of Tylenol two days ago, but otherwise denies potential insults to the liver. Denies symptoms of infectious hepatitis. Elevations may be due to hepatopathy from sickle cell crisis Patient reports working out heavily last week Leg pain resolved, minimal chest pain No shortness of breath Hemoglobin 12.5, 11.9, 11.3 Evaluated by safety professional Dr. Hidalgo Sickle cell crisis likely secondary to dehydration and rhabdomyolysis Recommend IV fluids CPK 25k --> 18k Continue IV NSS at 125 cc/h Continue IV morphine as needed for sickle cell pain crisis No concern at this time for sequestration crisis or acute chest syndrome No significant hemolysis given normal bilirubin Elevated LFTs likely secondary rhabdomyolysis (3) Elevated liver transaminase level: Plan: Likely from rhabdomyolysis - Liver U/S with Doppler: FINDINGS: The portal and hepatic veins appear patent and demonstrate a normal direction of flow. No hepatic masses identified. IMPRESSION: No evidence for portal vein thrombosis. AST/ALT trending down Continue to monitor daily Admission and Anticipated Discharge Date Admission Date: June 12, 2023 Subjective Follow-up for sickle cell disease, Rhabdomyolysis, etc. Seen resting in bed, comfortable, not in distress States he feels better compared to yesterday Less chest discomfort Denies leg pain or muscle pains today No shortness of breath, dizziness, palpitations, nausea vomiting, fevers or chills No other new symptoms Review of Systems Review of Systems: all noted and negative except for above Physical Exam Physical Exam: General- oriented x 3, not in distress, speaks in sentences with no effort or accessory muscle use Eyes- anicteric Neck- no JVD Lungs- clear breath sounds bilaterally, no rales/wheezes Heart- normal rate, regular rhythm; no murmurs Abdomen- normal bowel sounds, nondistended, soft, nontender Extremities- no pretibial edema, no calf tenderness Neuro- alert, oriented x 3; no gross focal neurologic deficits Skin- warm & dry Results & Data Results & Data Vital Signs (Past 12 Hours) Vital Signs Temp Pulse Pulse Resp BP Pulse Ox O2 Del Method 06/13/23 07:30 Room Air 06/13/23 07:00 66 06/13/23 07:28 36.7 C 65 14 111/73 98 Room Air all noted and reviewed including below
[2023-06-13 17:55] LABS: Hematocrit (blood only) 31.8 % (42.0-52.0); Hemoglobin 11.5 g/dl (14.0-18.0); Mean Corpuscular Hemoglobin 25.7 pg (25.0-34.0); Mean Corpuscular Hgb Conc 36.2 g/dL (32.0-36.0); Mean Platelet Volume 10.1 fL (9.4-12.4); Platelet Count 147 K/uL (130-400); RDW Coefficient of Variation 17.2 % (11.5-14.5); RDW Standard Deviation 43.7 fL (36.4-46.3); Red Blood Count 4.48 M/uL (4.70-6.10); White Blood Count 5.51 K/ul (4.8-10.8)
[2023-06-13 18:20] LABS: Albumin Level 3.5 gm/dl (3.4-5.0); Bilirubin Direct 0.2 mg/dl (0-0.2); Bilirubin,Total 0.8 mg/dl (0.2-1.0); Total Protein 5.7 gm/dl (6.0-8.3)
[2023-06-14] MEDS: CONCERTA~ORDER AWAITING ACTION SCH ×4 (00:38→23:01)
[2023-06-14] MEDS: SODIUM CHLORIDE 0.9% 1,000 ML IV SCH ×3 (00:45→17:14)
[2023-06-14] MEDS: MoRPHine SULFATE 4 MG/ML 1 ML CARP\\VIAL IV PRN ×4 (04:23→20:26)
[2023-06-14] MEDS: METHYLPHENIDATE HCL 10 MG TABLET PO SCH ×2 (06:04→15:00)
[2023-06-14 07:06] LABS: Hematocrit (blood only) 31.9 % (42.0-52.0); Hemoglobin 11.5 g/dl (14.0-18.0); Mean Corpuscular Hemoglobin 25.6 pg (25.0-34.0); Mean Corpuscular Hgb Conc 36.1 g/dL (32.0-36.0); Mean Corpuscular Volume 70.9 fL (80.0-100.0); Mean Platelet Volume 10.3 fL (9.4-12.4); Platelet Count 138 K/uL (130-400); RDW Standard Deviation 43.3 fL (36.4-46.3); White Blood Count 4.92 K/ul (4.8-10.8)
[2023-06-14 07:12] LABS: Anion Gap 3 (3-11); Blood Urea Nitrogen 9 mg/dl (6-23); Calcium 8.4 mg/dl (8.6-10.3); Carbon Dioxide 28 mmol/L (21-32); Chloride 109 mmol/L (98-107); Creatinine Clr Calc Pharmacy 191.6 ml/min; Est GFR (African American) > 150.0 ml/min; Est GFR (Non-African American) 135.7 ml/min; Glucose 89 mg/dl (70-99(Fasting)); Potassium 4.3 mmol/L (3.5-5.1); Sodium 140 mmol/L (136-145)
[2023-06-14 07:34] LABS: Creatine Kinase 11548 U/L (30-223)
[2023-06-14] MEDS: ENOXAPARIN INJ 40 MG/0.4 ML SYR SQ SCH (08:44)
[2023-06-14] MEDS: PANTOprazole 40 MG TAB PO SCH (08:45)
[2023-06-14] MEDS: FEXOFENADINE HCL 180 MG TAB PO SCH (08:45)
[2023-06-14] MEDS: FLUTICASONE PROPIONATE NA SPR 16 GM BTL SCH (08:45)
[2023-06-14] MEDS: MONTELUKAST SODIUM 10 MG TABLET PO SCH (08:45)
[2023-06-14] MEDS: FOLIC ACID 1 MG TAB PO SCH (08:45)
--- NOTE | 2023-06-14 12:29 | Hospitalist Progress Note ---
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 He also c/o chest pain, which is a new complaint and not consistent with prior episodes of symptoms. On work-up in the ED, he was noted to have elevations of the AST/ALT of unclear etiology so referred for admission. Of note, pt did consume multiple drinks of hard liquor three days ago, then several doses of Tylenol two days ago, but otherwise denies potential insults to the liver. Denies symptoms of infectious hepatitis. Elevations may be due to hepatopathy from sickle cell crisis. Patient reports working out heavily last week Leg pain resolved, minimal chest pain No shortness of breath Hemoglobin stable 11.[address] Hidalgo Sickle cell crisis likely secondary to dehydration and rhabdomyolysis Recommend IV fluids - continue NSS 125cc/hr CPK 25k --> 18k-->11k Continue IV NSS at 125 cc/h Continue IV morphine as needed for sickle cell pain crisis No concern at this time for sequestration crisis or acute chest syndrome No significant hemolysis given normal bilirubin Elevated LFTs likely secondary rhabdomyolysis (3) Elevated liver transaminase level: Plan: Likely from rhabdomyolysis - Liver U/S with Doppler: FINDINGS: The portal and hepatic veins appear patent and demonstrate a normal direction of flow. No hepatic masses identified. IMPRESSION: No evidence for portal vein thrombosis. AST/ALT trending down, 313 and 114 resepctively Continue to monitor daily continue daily BMP, CPK and LFTS DVT ppx: SQ Lovenox, encourage gentle ambulation Dispo: pt to remain admitted until CPK < 5k FULL CODE PT was seen and examined in collaboration with Dr. Hernandez, please see addendum Admission and Anticipated Discharge Date Admission Date: June 12, 2023 Supervising Physician Co-Signing Physician Notes I have seen and discussed the case with the collaborating KEERTHI. I agree with the above H&P. I have reviewed and confirmed the patients medical history, the findings on physical examination, and the patients diagnosis and treatment plan with [facility] PENDLETON and agree with the information documented. In short, Mr. Weber is a 22 year old gentleman with history of sickle cell disease who is admitted for management of rhabdomyolysis given recent increase in gym activity. Heme consulted and feels situation is likely related to rhabdo given stable blood counts and less likley sequestration crisis/acute chest syndrome. There is also possibility transaminitis is secondary to rhabdo. Patient denies any new concerns this am.Labs show down trend in CK from 18K to 11.8K. IVF running at 125 until this evening with plans to transition to maintenance dose. Patient encouraged to increase PO intake. Goal CK <5K before discharge. Continue to trend CK and LFTs. Subjective Pt was seen and examined in room 283-1. F/U rhabdo, sickle cell crisis. Pt is doing fine. Still c/o CP 4-5/10 at baseline, but not sickle cell pain. Denies myalgias. Is asking if there is anything he can do to speed up the process. Review of Systems Review of Systems: All systems reviewed & are unremarkable except as noted in HPI & below Physical Exam Physical Exam: Gen: WD/WN, M NAD, A&O x3 HEENT: Normocephalic, atraumatic, conjunctivae moist, sclerae anicteric, mucous membranes moist. Lung: Clear to Auscultation bilaterally, no wheezes/rales/rhonchi Heart: Regular rate, regular rhythm, no murmurs, rubs, or gallops Abdomen: Soft, NT, ND +BS x 4 Extremities: No edema Skin: Warm, no rash, negative turgor. Results & Data Results & Data Vital Signs (Past 12 Hours) Vital Signs Temp Pulse Pulse Resp BP Pulse Ox O2 Del Method 06/14/23 11:27 37.0 C 65 16 94/48 L 98 Room Air 06/14/23 09:38 70 06/14/23 07:40 37.0 C 63 16 112/69 96 Room Air 06/14/23 04:00 36.9 C 65 18 111/70 99 Room Air Laboratory Results Short CBC 06/13/23 06/14/23 Range/Units 17:42 06:01 WBC 5.51 4.92 (4.8-10.8) K/ul Hgb 11.5 L 11.5 L (14.0-18.0) g/dl Hct 31.8 L 31.9 L (42.0-52.0) % Plt Count 147 138 (130-400) K/uL BMP 09/13/23 06:01 Sodium 140 Potassium 4.3 Chloride 109 H Carbon Dioxide 28 BUN 9 Creatinine 0.69 Glucose 89 Calcium 8.4 L Cardiac Enzymes 06/14/23 Range/Units 06:01 Total Creatine Kinase 80761 H (30-223) U/L Liver Function 06/13/23 Range/Units 17:42 Total Bilirubin 0.8 (0.2-1.0) mg/dl Direct Bilirubin 0.2 (0-0.2) mg/dl AST 313 H (13-39) U/L ALT 114 H (7-52) U/L Alkaline Phosphatase 43 (34-104) U/L Albumin 3.5 (3.4-5.0) gm/dl Medications Administered Current Inpatient Medications Albuterol (Albuterol Hfa 8 Gm Inhaler) 2 puffs INH Q6H PRN PRN Reason: Shortness Of Breath Or Wheezing Stop: 07/12/23 13:09 Enoxaparin Sodium (Enoxaparin Inj 40 Mg/0.4 Ml Syr) 40 mg SQ QAM [place] Stop: 07/13/23 08:59 Last Admin: 06/14/23 08:44 Dose: 40 mg Fexofenadine HCl (Fexofenadine Hcl 180 Mg Tab) 180 mg PO DAILY STERLING Stop: 07/13/23 08:59 Last Admin: 06/14/23 08:45 Dose: 180 mg Fluticasone Propionate (Fluticasone Propionate Na Spr 16 Gm Btl) 2 sprays NA DAILY ST[place] Stop: 07/13/23 08:59 Last Admin: 06/14/23 08:45 Dose: 2 sprays Folic Acid (Folic Acid 1 Mg Tab) 1 mg PO DAILY ST[place]LING Stop: 07/13/23 08:59 Last Admin: 06/14/23 08:45 Dose: 1 mg Sodium Chloride (Nss) 1,000 mls @ 125 mls/hr IV .Q8H [place] Stop: 07/13/23 07:44 Last Admin: 06/14/23 08:44 Dose: 125 mls/hr Methylphenidate HCl (Methylphenidate Hcl 10 Mg Tablet) 10 mg PO Q24H [place] Stop: 06/26/23 06:59 Last Admin: 06/14/23 06:04 Dose: Not Given Miscellaneous (Concerta~Order Awaiting Action) 1 each N/A QS [place] Stop: 07/12/23 13:44 Last Admin: 06/14/23 10:45 Dose: Not Given Montelukast Sodium (Montelukast Sodium 10 Mg Tablet) 10 mg PO DAILY STERLING Stop: 07/13/23 08:59 Last Admin: 06/14/23 08:45 Dose: 10 mg Morphine Sulfate (Morphine Sulfate 4 Mg/Ml 1 Ml Carp\Vial) 4 mg IV Q4H PRN PRN Reason: Pain Stop: 06/26/23 12:02 Last Admin: 06/14/23 09:56 Dose: 4 mg Oxycodone HCl (Oxycodone Hcl Ir 5 Mg Tab (Immediate Release)) 5 mg PO Q8H PRN PRN Reason: Pain Stop: 06/26/23 19:30 Last Admin: 06/13/23 20:35 Dose: 5 mg Pantoprazole Sodium (Pantoprazole 40 Mg Tab) 40 mg PO DAILY STERLING Stop: 07/13/23 08:59 Last Admin: 06/14/23 08:45 Dose: 40 mg
[2023-06-14] MEDS: oxyCODONE HCL IR 5 MG TAB (IMMEDIATE RELEASE) PO PRN ×2 (13:08→22:07)
[2023-06-15] MEDS: MoRPHine SULFATE 4 MG/ML 1 ML CARP\\VIAL IV PRN (00:40)
[2023-06-15] MEDS: SODIUM CHLORIDE 0.9% 1,000 ML IV SCH ×3 (01:04→17:35)
[2023-06-15 08:38] LABS: BUN Creatinine Ratio 16.7 (10-20); Calcium 9.2 mg/dl (8.6-10.3); Creatinine Clr Calc Pharmacy 168.7 ml/min; Est GFR (African American) 149.6 ml/min; Potassium 4.4 mmol/L (3.5-5.1)
[2023-06-15] MEDS: ENOXAPARIN INJ 40 MG/0.4 ML SYR SQ SCH (08:40)
[2023-06-15] MEDS: CONCERTA~ORDER AWAITING ACTION SCH ×2 (08:40→17:31)
[2023-06-15] MEDS: PANTOprazole 40 MG TAB PO SCH (08:42)
[2023-06-15] MEDS: MONTELUKAST SODIUM 10 MG TABLET PO SCH (08:42)
[2023-06-15] MEDS: FEXOFENADINE HCL 180 MG TAB PO SCH (08:42)
[2023-06-15] MEDS: FLUTICASONE PROPIONATE NA SPR 16 GM BTL SCH (08:42)
[2023-06-15] MEDS: FOLIC ACID 1 MG TAB PO SCH (08:42)
[2023-06-15 08:58] LABS: Albumin Level 4.1 gm/dl (3.4-5.0); Bilirubin Direct 0.2 mg/dl (0-0.2); Total Protein 6.6 gm/dl (6.0-8.3)
--- NOTE | 2023-06-15 13:58 | Hospitalist Progress Note ---
Date of Service June 15, 2023 Assessment & Plan (1) Sickle cell disease: (2) Rhabdomyolysis: (3) Elevated liver transaminase level: Plan Mr. 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 Patient reported working out intensely the week prior and CK was noted to be markedly elevated with LFT elevations. Heme consulted given concern of sickle cell crisis, however, it was felt transaminitis and symptoms were likely related to rhabdomyolysis rather than acute sequestration crisis or acute chest syndrome. Patient was started on aggressive IVF with notable downtrend in CK. Plan for discharged once CK is less than 5K. Patient currently taking in notable fluids by mouth. #Rhabdomyolysis #Sickle Cell Disease -recent heavy intensity exercise, CK up to 25K improving with IVF -Heme consulted, nothing to do outside of hydration, labs stable, no signs of crisis at this time -Continue IVF and PO intake -CK in am, <5K plan for discharge #Transaminitis -Likely secondary to rhabdo -Downtrending, continue to trend DVT ppx: SQ Lovenox, encourage gentle ambulation Dispo: pt to remain admitted until CPK < 5k FULL CODE Admission and Anticipated Discharge Date Admission Date: June 12, 2023 Subjective Pt was seen and examined in room 283-1. Patient doing well. Denies any current symptoms at this moment and eager to discharge Patient denies any chest pain, abdominal pain, or other new concerns Review of Systems Review of Systems: All systems reviewed & are unremarkable except as noted in Subjective Physical Exam Constitutional: WD/WN, vitals as above Respiratory: normal respiratory effort, lungs clear to auscultation Cardiovascular: RRR, no murmur, no edema Gastrointestinal (Abdomen): normal bowel sounds, soft, nontender, no hepatosplenomegaly Musculoskeletal: no cyanosis or clubbing, extremities motor strength 5/5 Results & Data Results & Data Vital Signs (Past 12 Hours) Vital Signs Temp Pulse Pulse Resp BP BP Pulse Ox 06/15/23 12:34 36.6 C 06/15/23 12:00 59 L 16 121/74 100 06/15/23 11:38 36.5 C 57 L 16 135/82 100 06/15/23 08:00 54 L 06/15/23 08:24 36.8 C 80 16 119/76 99 06/15/23 03:07 36.9 C 83 19 118/72 100 O2 Del Method 06/15/23 12:34 06/15/23 12:00 Room Air 06/15/23 11:38 Room Air 06/15/23 08:00 06/15/23 08:24 Room Air 06/15/23 03:07 Room Air Laboratory Results BMP 06/15/23 07:59 Sodium 140 Potassium 4.4 Chloride 106 Carbon Dioxide 29 BUN 13 Creatinine 0.78 Glucose 82 Calcium 9.2 Cardiac Enzymes 06/15/23 06/15/23 Range/Units 07:59 12:26 Total Creatine Kinase 6590 H 6093 H (30-223) U/L Liver Function 06/15/23 Range/Units 07:59 Total Bilirubin 1.0 (0.2-1.0) mg/dl Direct Bilirubin 0.2 (0-0.2) mg/dl AST 210 H (13-39) U/L ALT 112 H (7-52) U/L Alkaline Phosphatase 42 (34-104) U/L Albumin 4.1 (3.4-5.0) gm/dl Medications Administered Home Medications Medication Instructions Recorded Confirmed Last Taken albuterol sulfate 90 mcg/actuation 2 puff inhalation Q6H PRN 01/01/23 06/12/23 Unknown aerosol inhaler Shortness Of Breath Or Wheezing fluticasone propionate 50 2 spray intranasal DAILY PRN 01/01/23 06/12/23 Unknown mcg/actuation nasal allergies spray,suspension folic acid 1 mg tablet 1 mg PO DAILY 01/01/23 06/12/23 06/11/23 methylphenidate HCl 10 mg tablet 10 mg PO UD 01/01/23 06/12/23 06/11/23 methylphenidate HCl 36 mg 36 mg PO UD 01/01/23 06/12/23 06/09/23 tablet,extended release 24 hr montelukast 10 mg tablet 10 mg PO DAILY 01/01/23 06/12/23 06/11/23 oxycodone 5 mg tablet 5 mg PO Q6H PRN pain #7 tabs 01/03/23 06/12/23 06/12/23 fexofenadine 180 mg tablet 180 mg PO DAILY 06/12/23 06/12/23 06/11/23 omeprazole 40 mg capsule,delayed 40 mg PO DAILY 06/12/23 06/12/23 06/11/23 release Active Medications Generic Name Dose Route Start Last Admin Trade Name Denisa PRN Reason Stop Dose Admin Enoxaparin Sodium 40 mg 06/13/23 09:00 06/15/23 08:40 Enoxaparin Inj 40 Mg/0.4 Ml Syr SQ 07/13/23 08:59 Not Given QAM STER[place]ING Fexofenadine HCl 180 mg 06/13/23 09:00 06/15/23 08:42 Fexofenadine Hcl 180 Mg Tab PO 07/13/23 08:59 180 mg DAILY ST[place] Administration Fluticasone Propionate 2 sprays 06/13/23 09:00 06/15/23 08:42 Fluticasone Propionate Na Spr 16 Gm Btl NA 07/13/23 08:59 2 sprays DAILY ST[place] Administration Folic Acid 1 mg 06/13/23 09:00 06/15/23 08:42 Folic Acid 1 Mg Tab PO 07/13/23 08:59 1 mg DAILY STER[place] Administration Sodium Chloride 1,000 mls @ 125 mls/hr 06/13/23 07:45 06/15/23 09:52 Nss IV 07/13/23 07:44 125 mls/hr .Q8H [place] Administration Methylphenidate HCl 10 mg 06/12/23 07:00 06/14/23 15:00 Methylphenidate Hcl 10 Mg Tablet PO 06/26/23 06:59 10 mg Q24H [place] Administration Miscellaneous 1 each 06/12/23 13:45 06/15/23 08:40 Concerta~Order Awaiting Action N/A 07/12/23 13:44 Not Given QS STER[place]ING Montelukast Sodium 10 mg 06/13/23 09:00 06/15/23 08:42 Montelukast Sodium 10 Mg Tablet PO 07/13/23 08:59 10 mg DAILY STER[place] Administration Morphine Sulfate 4 mg 06/12/23 12:03 06/15/23 00:40 Morphine Sulfate 4 Mg/Ml 1 Ml Carp\Vial IV 06/26/23 12:02 4 mg Q4H PRN Administration Pain Oxycodone HCl 5 mg 06/12/23 19:31 06/14/23 22:07 Oxycodone Hcl Ir 5 Mg Tab (Immediate Release) PO 06/26/23 19:30 5 mg Q8H PRN Administration Pain Pantoprazole Sodium 40 mg 06/13/23 09:00 06/15/23 08:42 Pantoprazole 40 Mg Tab PO 07/13/23 08:59 40 mg DAILY STERLING Administration
--- NOTE | 2023-06-16 06:55 | Discharge Summary ---
Discharge Summary Date of Service June 15, 2023 Notes For Next Care Provider -Follow up LFTs Medication Changes From Visit No new medications Admission HPI Per Admitting Provider This is a 22 y/o male with with a history of sickle cell disease with prior splenic sequestration who presents to the ED with joint pain which is consistent with prior episodes of sickle cell crisis. Pt reports that Monday night, he was drinking with friends and had at least six shots of whiskey. Monday, he had a headache so he took several doses of Tylenol - was taking 2-3 tabs every 6 hours. Monday, the headache was better and he was feeling mostly back to baseline. However, Monday evening (last night), while doing homework, he noticed pain in his hips similar to prior episodes of sickle cell crisis. The pain has since moved to his right knee - feels like it is under the kneecap. This morning he also developed chest pain, which he reports is unusual for him so he decided to come to the ED. He took another Tylenol and a dose of oxycodone around 1 am, which only partially relieved pain. He reports his last similar episode of joint pain was over the summer (). He was admitted to this facility in December for abdominal symptoms related to the sickle cell and was noted to have splenic sequestration on imaging, saw hematology while admitted. He was supposed to follow-up with his outpatient banker mason after discharge but reports that he has not been able to do this yet. He does note having URI symptoms about a week ago but these have improved. Admission Exam Per Admitting Provider Constitutional: well developed and well nourished; no acute distress Eyes: + anicteric sclerae Neck: trachea midline Respiratory: no respiratory distress and no labored breathing Auscultation: lungs clear to auscultation bilaterally; no rales, no rhonchi and no wheezes Cardiovascular: Rate/Rhythm: regular rate and regular rhythm Vessels: radial pulses present Extremities: no pedal edema Gastrointestinal (Abdomen): Inspection/Auscultation: normal bowel sounds; abdomen not distended Percussion/Palpation: abdomen soft; abdomen nontender Musculoskeletal: Head/Neck/Chest: normocephalic, head atraumatic and neck supple Knee: + joint line tenderness (mild right); no deformity, no effusion and no ecchymosis Skin: no jaundice Neurologic: moves all extremities; no focal motor deficits and not confused Psychiatric: A+Ox3, euthymic affect Principal Dx & Hospital Course #1 = Principal Diagnosis (1) Sickle cell disease: (2) Rhabdomyolysis: (3) Elevated liver transaminase level: Plan Mr. 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 Patient reported working out intensely the week prior and CK was noted to be markedly elevated with LFT elevations. Heme consulted given concern of sickle cell crisis, however, it was felt transaminitis and symptoms were likely related to rhabdomyolysis rather than acute sequestration crisis or acute chest syndrome. Patient was started on aggressive IVF with notable downtrend in CK and LFTs. On 06/15, labs to 6.5 K then 6K in afternoon. Patient's father and patient requesting evening discharge given multiple appointments scheduled and desire to be near home for further follow up as patient is in [place] area. On day of discharge patient was drinking sufficiently, denied pain, endorsed significant, clear urine output. #Rhabdomyolysis #Sickle Cell Disease -recent heavy intensity exercise, CK up to 25K improving with IVF -Heme consulted, nothing to do outside of hydration, labs stable, no signs of crisis at this time -Follow up with heme provider -Continue PO intake of water -Follow up with LFTs and CK on labs #Transaminitis -Likely secondary to rhabdo -Downtrending Discharge Exam Constitutional WD/WN, vitals as above Respiratory normal respiratory effort, lungs clear to auscultation Cardiovascular RRR, no murmur, no edema Gastrointestinal (Abdomen) normal bowel sounds, soft, nontender, no hepatosplenomegaly Musculoskeletal no cyanosis or clubbing, extremities motor strength 5/5 Updated Medication List Medication Instructions Recorded Confirmed Type albuterol sulfate 90 mcg/actuation 2 puff inhalation Q6H PRN 01/01/23 06/12/23 History aerosol inhaler Shortness Of Breath Or Wheezing fluticasone propionate 50 2 spray intranasal DAILY PRN 01/01/23 06/12/23 History mcg/actuation nasal allergies spray,suspension folic acid 1 mg tablet 1 mg PO DAILY 01/01/23 06/12/23 History methylphenidate HCl 10 mg tablet 10 mg PO UD 01/01/23 06/12/23 History methylphenidate HCl 36 mg 36 mg PO UD 01/01/23 06/12/23 History tablet,extended release 24 hr montelukast 10 mg tablet 10 mg PO DAILY 01/01/23 06/12/23 History oxycodone 5 mg tablet 5 mg PO Q6H PRN pain #7 tabs 01/03/23 06/12/23 Rx fexofenadine 180 mg tablet 180 mg PO DAILY 06/12/23 06/12/23 History omeprazole 40 mg capsule,delayed 40 mg PO DAILY 06/12/23 06/12/23 History release Hospital Stay Data Consultations 06/12/23 10:41 ED Decision to Admit Stat 06/12/23 12:03 Consult Hematology Routine Diagnostic Imagining Performed 06/12/23 10:21 US abdomen limited Stat 06/12/23 10:42 US duplex portal hepatic veins Stat 06/12/23 14:13 CT angio chest PE protocol Urgent Pending Results Patient Have Any Pending Studies at Discharge: No Discharge Instructions Given to Patient (Per Discharging Provider) You were admitted for concerns of possible sickle cell crisis, however it seems you were experiencing rhabdomyolysis. This is due to rapid muscle breakdown and injury as a result of extreme exercise or activity, especially when at a degree higher than baseline activity. You received aggressive IV fluids to aid your kidneys in cleaning out the waste product created, which can be harmful to your kidneys at very high levels. There were no changes to your medications. You will need to follow up with your PCP in 1 week to follow up on liver enzymes levels. Total Time Total Time Spent Total Time Spent (In Minutes): 35
== END 2023-06-15 19:49 | disposition home or self-care (01) | DRG 558 ==
LOC: ED 07:30 → EDINP 11:55 → SUATTDRO 11:55 → 2N 13:11

== ENCOUNTER 2023-07-23 12:57 | Observation (INO) ==
[2023-07-23] MEDS ORDERED: KETOROLAC TROMETHAMINE 15 MG/ML VIAL IV ONE ×2 (13:23→21:08)
[2023-07-23] MEDS ORDERED: SODIUM CHLORIDE 0.9% 1,000 ML IV ONE ×2 (13:23→14:37)
[2023-07-23] MEDS ORDERED: HYDROmorphone INJ 1 MG/ML SYRINGE IV STA (13:24)
[2023-07-23 14:03] LABS: Basophils # (auto) 0.05 K/uL (0.00-0.20); Basophils % (auto) 0.6 %; Eosinophils # (auto) 0.07 K/uL (0.00-0.50); Eosinophils % (auto) 0.9 %; Hematocrit (blood only) 37.8 % (42.0-52.0); Hemoglobin 13.9 g/dl (14.0-18.0); Immature Granulocytes # (auto) 0.04 K/uL (0.01-0.20); Immature Granulocytes % (auto) 0.5 %; Lymphocytes # (auto) 1.85 K/uL (1.20-3.40); Lymphocytes % (auto) 22.8 %; Mean Corpuscular Hemoglobin 25.4 pg (25.0-34.0); Mean Corpuscular Hgb Conc 36.8 g/dL (32.0-36.0); Monocytes # (auto) 0.56 K/uL (0.11-0.59); Monocytes % (auto) 6.9 %; Neutrophils # (auto) 5.54 K/uL (1.40-6.50); Neutrophils % (auto) 68.3 %; RDW Coefficient of Variation 18.9 % (11.5-14.5); RDW Standard Deviation 44.9 fL (36.4-46.3); Red Blood Count 5.48 M/uL (4.70-6.10); Reticulocyte % 3.4 % (0.5-2.0); Reticulocytes # 0.19 10^6/uL (0.02-0.10); White Blood Count 8.11 K/ul (4.8-10.8)
[2023-07-23 14:18] LABS: Mean Platelet Volume 9.9 fL (9.4-12.4); Platelet Count 240 K/uL (130-400)
[2023-07-23 14:21] LABS: Alanine Aminotransferase 17 U/L (7-52); Albumin Level 4.7 gm/dl (3.4-5.0); Alkaline Phosphatase 60 U/L (34-104); Anion Gap 7 (3-11); Aspartate Aminotransferase 20 U/L (13-39); BUN Creatinine Ratio 11.3 (10-20); Bilirubin,Total 1.4 mg/dl (0.2-1.0); Blood Urea Nitrogen 8 mg/dl (6-23); Calcium 9.8 mg/dl (8.6-10.3); Carbon Dioxide 26 mmol/L (21-32); Chloride 103 mmol/L (98-107); Creatinine Clr Calc Pharmacy 183.6 ml/min; Est GFR (African American) > 150.0 ml/min; Est GFR (Non-African American) 134.1 ml/min; Globulin 2.4 gm/dl (2.5-4.0); Glucose 91 mg/dl (70-99(Fasting)); Potassium 3.7 mmol/L (3.5-5.1); Sodium 136 mmol/L (136-145); Total Protein 7.1 gm/dl (6.0-8.3)
--- NOTE | 2023-07-23 14:21 | Emergency Department Note ---
History of Present Illness General Chief complaint: Shoulder Pain Stated complaint: SICKLE CELL - LEFT SHOULDER PAIN Time Seen by Provider: 07/23/23 13:19 Source: patient, RN notes reviewed and old records reviewed Mode of arrival: ambulatory Limitations: no limitations History of Present Illness Maximum Pain Intensity: 4 This patient is a 22-year-old male has history of sickle cell disease comes in after having shoulder pain consistent with his previous sickle cell. He said started hurting in the last day or so is gotten worse he has tried ibuprofen and Oxy IR without too much relief he had no fever chills no chest pain shortness of breath or pleurisy no trauma or injury. No numbness or weakness or any systemic complaints. He was seen here last about 2 weeks ago and also had shoulder pain x-ray at the time. Home Medications Medication Instructions Recorded Confirmed Type albuterol sulfate 90 mcg/actuation 2 puff inhalation Q6H PRN 01/01/23 06/12/23 History aerosol inhaler Shortness Of Breath Or Wheezing fluticasone propionate 50 2 spray intranasal DAILY PRN 01/01/23 06/12/23 History mcg/actuation nasal allergies spray,suspension folic acid 1 mg tablet 1 mg PO DAILY 01/01/23 06/12/23 History methylphenidate HCl 10 mg tablet 10 mg PO UD 01/01/23 06/12/23 History methylphenidate HCl 36 mg 36 mg PO UD 01/01/23 06/12/23 History tablet,extended release 24 hr montelukast 10 mg tablet 10 mg PO DAILY 01/01/23 06/12/23 History fexofenadine 180 mg tablet 180 mg PO DAILY 06/12/23 06/12/23 History omeprazole 40 mg capsule,delayed 40 mg PO DAILY 06/12/23 06/12/23 History release oxycodone 5 mg tablet 5 mg PO Q6H PRN pain #20 tabs 07/04/23 06/12/23 Rx Allergies Allergy/AdvReac Type Severity Reaction Status Date / Time No Known Allergies Allergy Unverified 01/01/23 09:58 Past Med/Surg History Medical History Asthma Sickle cell disease Splenic sequestration Surgical History No pertinent past surgical history Family History Other Deep vein thrombosis Social History Smoking Status: Never smoker Do You Dip or Chew Tobacco: No; Hx Alcohol Use: Yes Alcohol type: beer Alcohol Intake Frequency: 2-4 x/Month Hx Substance Use: No Preferred Language: Albanian Communication Ability: Effective 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 Beliefs That Will Affect Care: None Current Living Situation: Other Current Living Situation Comment: [employer] current occupational status: student Feels Safe at Home: Yes Assistive Devices: None Review of Systems A total of 10 systems reviewed and were otherwise negative Physical Exam Vital Signs Vital Signs - 24 hr 07/23/23 13:10 Temperature 36.0 C L Temperature Source Temporal Artery Scan Pulse Rate 86 Respiratory Rate 20 Respiratory Effort / Characteristics Non-Labored Spontaneous Respiratory Depth Normal Blood Pressure 145/88 H Blood Pressure Mean 107 Pulse Oximetry 98 Oxygen Delivery Method Room Air Sepsis Recent Fever Within 48 Hours No Sepsis New/Unexplained Change in Mental Status N/A Sepsis Action Taken by Nursing No Action Required General: Well developed well nourished non-ill appearing young male who appears in no acute distress, breathing comfortably on room air. Normal speech HEENT: Normal cephalic atraumatic. Pupils are equal round and reactive to light. Extraocular movements are intact. Oropharynx is pink with moist mucous membranes. No swelling of the mouth lips or tongue. Neck: Supple with a midline trachea. No meningeal signs or stiffness, no JVD or bruits. No Stridor. Chest: Clear to auscultation bilaterally. No wheezes or rhonchi. No increased work of breathing. Heart: Regular rate and rhythm without murmurs or gallops. Abdomen: Soft nontender, nondistended without rebound guarding or rigidity. Extremities: No cyanosis clubbing or edema. No calf tenderness or assymetry. No warmth or deformity. Mildly tender with movement Spine/Back. Non tender to palpation. No CVA tenderness Skin: Good turgor without rashes. Neurologic exam: Cranial nerves two through 12 are intact. Motor and sensation are intact and symmetrical throughout. Course Administered Medications Sodium Chloride (Nss) 1,000 mls @ 999 mls/hr IV .Q1H1M ONE Stop: 07/23/23 15:37 Last Admin: 07/23/23 14:51 Dose: 999 mls/hr Documented By: ARS Discontinued Medications Hydromorphone HCl (Hydromorphone Inj 1 Mg/Ml Syringe) 1 mg IV NOW STA Stop: 07/23/23 13:25 Last Admin: 07/23/23 13:49 Dose: 1 mg Documented By: ARS Sodium Chloride (Nss) 1,000 mls @ 999 mls/hr IV .Q1H1M ONE Stop: 07/23/23 14:23 Last Admin: 07/23/23 13:49 Dose: 999 mls/hr Documented By: ARS Ibuprofen (Ibuprofen 200 Mg Tab) 400 mg PO NOW STA Stop: 07/23/23 14:38 Last Admin: 07/23/23 14:50 Dose: 400 mg Documented By: ARS Ketorolac Tromethamine (Ketorolac Tromethamine 15 Mg/Ml Vial) 10 mg IV NOW ONE Stop: 07/23/23 13:24 Last Admin: 07/23/23 13:49 Dose: 10 mg Documented By: JESSIE Medical Decision Making Differential Diagnosis Sickle cell crisis, infection, anemia, acute on chronic pain, electrolyte or metabolic abnormality, trauma, musculoskeletal Medical Records Attestation: I reviewed the patient's medical records. Home Medications Current Medication List: was personally reviewed by me Laboratory Data Attestation: I reviewed the patient's lab results. 07/23/23 13:44 07/23/23 13:44 Lab Results 07/23/23 07/23/23 Range/Units 13:44 13:44 WBC 8.11 (4.8-10.8) K/ul RBC 5.48 (4.70-6.10) M/uL Hgb 13.9 L (14.0-18.0) g/dl Hct 37.8 L (42.0-52.0) % MCV 69.0 L (80.0-100.0) fL MCH 25.4 (25.0-34.0) pg MCHC 36.8 H (32.0-36.0) g/dL RDW Std Deviation 44.9 (36.4-46.3) fL RDW Coeff of Wendi 18.9 H (11.5-14.5) % Plt Count 240 (130-400) K/uL MPV 9.9 (9.4-12.4) fL Immature Gran % (Auto) 0.5 % Neut % (Auto) 68.3 % Lymph % (Auto) 22.8 % Monona % (Auto) 6.9 % Eos % (Auto) 0.9 % Baso % (Auto) 0.6 % Reticulocyte % (Auto) 3.4 H (0.5-2.0) % Neut # (Auto) 5.54 (1.40-6.50) K/uL Lymph # (Auto) 1.85 (1.20-3.40) K/uL Monona # (Auto) 0.56 (0.11-0.59) K/uL Eos # (Auto) 0.07 (0.00-0.50) K/uL Baso # (Auto) 0.05 (0.00-0.20) K/uL Reticulocyte # 0.19 H (0.02-0.10) 10^6/uL Immature Gran # (Auto) 0.04 (0.01-0.20) K/uL Toxic Vacuolation 1+ Polychromasia 1+ Microcytosis Present Target Cells 2+ Stomatocytes 1+ Sodium 136 (136-145) mmol/L Potassium 3.7 (3.5-5.1) mmol/L Chloride 103 (98-107) mmol/L Carbon Dioxide 26 (21-32) mmol/L Anion Gap 7 (3-11) BUN 8 (6-23) mg/dl Creatinine 0.71 (0.6-1.4) mg/dl Est Cr Clr Drug Dosing 183.6 ml/min Est GFR ( Amer) > 150.0 ml/min Est GFR (Non-Af Amer) 134.1 ml/min BUN/Creatinine Ratio 11.3 (10-20) Glucose 91 (70-99(Fasting)) mg/dl Calcium 9.8 (8.6-10.3) mg/dl Total Bilirubin 1.4 H (0.2-1.0) mg/dl AST 20 (13-39) U/L ALT 17 (7-52) U/L Alkaline Phosphatase 60 (34-104) U/L Total Protein 7.1 (6.0-8.3) gm/dl Albumin 4.7 (3.4-5.0) gm/dl Globulin 2.4 L (2.5-4.0) gm/dl Albumin/Globulin Ratio 2.0 (0.9-2) [facility] Narrative This patient comes in described above he has known history of sickle cell disea se and is coming in with a pain crisis. he has left shoulder pain IV was established. I gave 1 IV normal saline bolus and given Dilaudid 1 mg IV and Toradol 10 mg IV which are typical medications he receives here. He is afebrile his white count was normal his hemoglobin is 13.9 he has a reticulocyte count in the 3 range and is therefore making reticulocytes. He was reassessed frequently. He was feeling significantly better and pain was 0 out of 10 after receiving the Dilaudid he requested additional IV fluids and more time and I gave him 1 L IV normal saline bolus additionally. He also had requested ibuprofen 400 mg p.o. which I gave him as well he was further reassessed and observed. The patient talked to his father who feels he should be admitted/observed in the hospital as he is at a lot of pain and he has had multiple pain crisis is in his past and despite having fluids and pain medication does not feel he will do well at home. I did consult the [facility] hospitalist to see him in the ER for this measure and discussed the case with them. Continuous monitor and storage bin tender: Orders placed in EMR for continuous monitor and storage bin tender and upon my evaluation patient was noted to be in normal sinus rhythm rate of 85 Impression & Plan Sickle cell pain crisis, Sickle cell disease, Acute pain of left shoulder Discharge Plan Visit Data Chief Complaint: Shoulder Pain Stated Complaint: SICKLE CELL - LEFT SHOULDER PAIN ED Provider: Noman Lorenzana Discharge Problem: Sickle cell pain crisis, Sickle cell disease, Acute pain of left shoulder Forms Stand Alone Forms: [facility] Prescriptions Prescriptions: No Action methylphenidate HCl 10 mg tablet 10 mg PO UD Rx Instructions: daily at home folic acid 1 mg tablet 1 mg PO DAILY montelukast 10 mg tablet 10 mg PO DAILY fluticasone propionate 50 mcg/actuation spray,suspension 2 spray INTRANASAL DAILY PRN (Reason: allergies) methylphenidate HCl 36 mg tablet extended release 24hr 36 mg PO UD Rx Instructions: daily During school albuterol sulfate 90 mcg/actuation HFA aerosol inhaler 2 puff INHALATION Q6H PRN (Reason: Shortness Of Breath Or Wheezing) fexofenadine 180 mg Tablet 180 mg PO DAILY omeprazole 40 mg capsule,delayed release(DR/EC) 40 mg PO DAILY oxycodone 5 mg Tablet 5 mg PO Q6H PRN (Reason: pain) Qty: 20 0RF Referrals Referrals: [facility] [Primary Care Provider] -
[2023-07-23 14:25] LABS: Microcytosis Present; Polychromasia 1+; Stomatocytes 1+; Target Cells 2+; Toxic Vacuolation 1+
[2023-07-23] MEDS ORDERED: IBUPROFEN 200 MG TAB PO STA (14:37)
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
[2023-07-23] MEDS: HYDROmorphone INJ 0.5 MG/0.5 ML SYR IV PRN (18:08)
[2023-07-23] MEDS: oxyCODONE HCL IR 5 MG TAB (IMMEDIATE RELEASE) PO PRN (19:35)
[2023-07-23] MEDS ORDERED: ALBUTEROL HFA 8 GM INHALER INH PRN (20:33)
[2023-07-23] MEDS ORDERED: FLUTICASONE PROPIONATE NA SPR 16 GM BTL NAE PRN (20:33)
[2023-07-23] MEDS ORDERED: ACETAMINOPHEN 325 MG TAB PO PRN (20:33)
[2023-07-23] MEDS ORDERED: oxyCODONE HCL IR 5 MG TAB (IMMEDIATE RELEASE) PO STA (21:07)
[2023-07-24] MEDS: HYDROmorphone INJ 0.5 MG/0.5 ML SYR IV PRN ×3 (01:51→13:39)
[2023-07-24 07:21] LABS: Hematocrit (blood only) 32.9 % (42.0-52.0); Hemoglobin 12.2 g/dl (14.0-18.0); Mean Corpuscular Hemoglobin 25.4 pg (25.0-34.0); Mean Corpuscular Hgb Conc 37.1 g/dL (32.0-36.0); Mean Corpuscular Volume 68.5 fL (80.0-100.0); Mean Platelet Volume 9.8 fL (9.4-12.4); Platelet Count 199 K/uL (130-400); RDW Coefficient of Variation 18.2 % (11.5-14.5); RDW Standard Deviation 44.2 fL (36.4-46.3); White Blood Count 6.11 K/ul (4.8-10.8)
[2023-07-24 07:43] LABS: BUN Creatinine Ratio 12.2 (10-20); Creatinine Clr Calc Pharmacy 146.3 ml/min; Est GFR (Non-African American) 121.7 ml/min; Magnesium 2.1 mg/dl (1.7-2.4); Phosphorus 4.4 mg/dl (2.5-4.9); Potassium 4.3 mmol/L (3.5-5.1)
[2023-07-24] MEDS: SODIUM CHLORIDE 0.9% 1,000 ML IV SCH ×2 (09:00→17:15)
[2023-07-24] MEDS: PANTOprazole 40 MG TAB PO SCH (09:00)
[2023-07-24] MEDS: MONTELUKAST SODIUM 10 MG TABLET PO SCH (09:00)
[2023-07-24] MEDS: FEXOFENADINE HCL 180 MG TAB PO SCH (09:00)
[2023-07-24] MEDS: FOLIC ACID 1 MG TAB PO SCH (09:00)
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
--- NOTE | 2023-07-24 10:06 | Oncology Consultation ---
Date of Consultation July 24, 2023 Assessment & Plan (1) Sickle cell pain crisis: At this time would recommend continuation of the current pain regimen. His pain symptoms seem to be improving. He feels like he is coming to live his baseline. No indications for blood transfusion or institution of hydroxyurea at this time. Will recommend outpatient evaluation and follow-up in the clinic for discussion about hydroxyurea therapy, especially seasonally if his sickle cell pain crisis is worse during the winter. Continue evaluation with regular CBC evaluations. Improvement in pain, for pain regimen and as reported by patient clinically. (2) Sickle cell disease: Recommend outpatient follow-up and evaluation. No intervention needed from sickle cell disease standpoint at this time. Will discuss seasonal institution of hydroxyurea therapy, especially if he has increased sickle cell pain crisis during the winter and fall. (3) Acute pain of left shoulder: At this time we will continue pain management per the primary team. His pain has improved significantly since admission to the hospital. Plan DVT prophylaxis: Recommend DVT prophylaxis for the patient. Thank you for this hematology consult, we will continue to follow the patient and make appropriate recommendations as necessary. 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 He has a long history of sickle cell anemia, never been on cytoreductive therapy like hydroxyurea. He does get sickle cell pain crisis seasonally, present mostly during the fall and winter. Over the last 48 hours he noticed increased pain in his joints, present in his elbows, shoulder, knees. Describes the pain at onset to be 8 out of 10 in intensity, like someone is boring holes in his bones. He was admitted to the hospital, started on appropriate pain medications and IV hydration. During my interview rated the pain to be 3 out of 10 in intensity. Reports no fever or chills. Reports that the pain has improved significantly since he has been in the hospital. Reports no active bleeding or bruising. Reports no nausea vomiting. Reports no shortness of breath or chest pain. No swelling in the lower extremities. At this point the patient does not have a autos disassembler caring for him. He has not been evaluated by a autos disassembler recently. Previously was being cared for by hematology colleagues in [facility]. According to the patient, his sickle cell pain crisis are usually precipitated by a drop in temperature. This explains disease no increasing frequency of his admission to the hospital with acute sickle cell pain. Reports no history of blood transfusions. No history of splenectomy. History reported to me he has never been on hydroxyurea though there have been discussions about hydroxyurea therapy in the past. Allergies Allergy/AdvReac Type Severity Reaction Status Date / Time No Known Allergies Allergy Unverified 01/01/23 09:58 Home Medications Medication Instructions Recorded Confirmed Type albuterol sulfate 90 mcg/actuation 2 puff inhalation Q6H PRN 01/01/23 07/23/23 History aerosol inhaler Shortness Of Breath Or Wheezing fluticasone propionate 50 2 spray intranasal DAILY PRN 01/01/23 07/23/23 History mcg/actuation nasal allergies spray,suspension folic acid 1 mg tablet 1 mg PO DAILY 01/01/23 07/23/23 History methylphenidate HCl 10 mg tablet 10 mg PO DAILY@1500 01/01/23 07/23/23 History methylphenidate HCl 36 mg 36 mg PO DAILY@0900 01/01/23 07/23/23 History tablet,extended release 24 hr montelukast 10 mg tablet 10 mg PO DAILY 01/01/23 07/23/23 History fexofenadine 180 mg tablet 180 mg PO DAILY 06/12/23 07/23/23 History omeprazole 40 mg capsule,delayed 40 mg PO DAILY 06/12/23 07/23/23 History release oxycodone 5 mg tablet 5 mg PO Q6H PRN pain #20 tabs 07/04/23 07/23/23 Rx Patient History Medical History Asthma Sickle cell disease Splenic sequestration Surgical History No pertinent past surgical history Family History (Updated 07/23/23 @ 16:19 by Janis Cota PA-C) Other Deep vein thrombosis Heart disease Stroke Social History Smoking Status: Never smoker Second Hand Exposure: No; Do You Dip or Chew Tobacco: No; Tobacco Cessation Education Requested by Patient: No Hx Alcohol Use: Yes Alcohol type: beer Alcohol Intake Frequency: 2-4 x/Month Hx Substance Use: No Preferred Language: Tajik Communication Ability: Effective 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 Ear, Nose, Mouth, Throat: n.a. Respiratory: n.a. Cardiovascular: Additional Comments: n.a. Gastrointestinal: n.a. Musculoskeletal: + joint pain 3 out of 10 in intensity, improved with current pain regimen Integumentary: n.a. Neurologic: n.a. Psychiatric: n.a. Endocrine: n.a. Hematologic / Lymphatic: n.a. Allergy / Immunological: n.a. Physical Exam Constitutional: well developed and well nourished Eyes: PERRL, conjunctivae normal, anicteric sclerae ENMT: external ear and nose normal, oropharynx normal Neck: trachea midline, no thyromegaly Respiratory: normal respiratory effort, lungs clear to auscultation Cardiovascular: RRR, no murmur, no edema Gastrointestinal (Abdomen): normal bowel sounds, soft, nontender, no hepatosplenomegaly Skin: no rashes, warm and dry Lymphatic: no cervical or axillary lymphadenopathy Results & Data Vital Signs (Past 12 Hours) Vital Signs Temp Pulse Resp BP Pulse Ox O2 Del Method 07/24/23 08:08 36.6 C 65 16 118/76 97 Room Air
[2023-07-24] MEDS: oxyCODONE HCL IR 5 MG TAB (IMMEDIATE RELEASE) PO PRN ×2 (10:54→17:15)
[2023-07-24] MEDS: METHYLPHENIDATE HCL PO SCH (12:36)
[2023-07-24] MEDS ORDERED: METHYLPHENIDATE HCL 10 MG TABLET PO SCH (15:00)
[2023-07-25] MEDS: HYDROmorphone INJ 0.5 MG/0.5 ML SYR IV PRN ×2 (00:58→05:04)
[2023-07-25] MEDS: SODIUM CHLORIDE 0.9% 1,000 ML IV SCH ×2 (00:58→08:08)
[2023-07-25] MEDS: oxyCODONE HCL IR 5 MG TAB (IMMEDIATE RELEASE) PO PRN ×2 (07:31→13:45)
[2023-07-25] MEDS: PANTOprazole 40 MG TAB PO SCH (08:04)
[2023-07-25] MEDS: MONTELUKAST SODIUM 10 MG TABLET PO SCH (08:04)
[2023-07-25] MEDS: FEXOFENADINE HCL 180 MG TAB PO SCH (08:04)
[2023-07-25] MEDS: FOLIC ACID 1 MG TAB PO SCH (08:04)
[2023-07-25 08:18] LABS: Albumin Globulin Ratio 1.8 (0.9-2); Albumin Level 4.3 gm/dl (3.4-5.0); BUN Creatinine Ratio 10.3 (10-20); Bilirubin,Total 1.8 mg/dl (0.2-1.0); Calcium 9.5 mg/dl (8.6-10.3); Creatinine Clr Calc Pharmacy 168.8 ml/min; Est GFR (African American) 149.6 ml/min; Globulin 2.4 gm/dl (2.5-4.0); Potassium 4.1 mmol/L (3.5-5.1); Total Protein 6.7 gm/dl (6.0-8.3)
[2023-07-25] MEDS ORDERED: PATIENT'S OWN CONTROLLED MED 1 PO SCH (09:00)
[2023-07-25] MEDS: METHYLPHENIDATE HCL PO SCH (09:45)
--- NOTE | 2023-07-25 12:24 | Discharge Summary ---
Discharge Summary Date of Service July 25, 2023 Notes For Next Care Provider Please consider follow-up with hematology/oncology for seasonal hydroxyurea use. Medication Changes From Visit Please see med rec Admission HPI Per Admitting Provider This is a 22-year-old male with PMH of sickle cell type SC, asthma who presents with left sided shoulder pain since yesterday. Was out in an RV yesterday during the game and the temperature dropped, which he feels brought on his pain. Main trigger is cold temperatures/ temp changes. Last sickle cell crisis was earlier this month per patient. Tried ibuprofen and Oxy IR without improvement so he presented to ED for further evaluation and pain control. Denies any F/C, lightheadedness, congestion, CP, SOB, N/V, abdominal pain, dysuria, diarrhea or constipation. Admission Exam Per Admitting Provider Physical Exam: Lying in bed with acute pain Constitutional: well developed, well nourished, + ill appearing and average body habitus Eyes: PERRL, conjunctivae normal, anicteric sclerae ENMT: external ear and nose normal, oropharynx normal Neck: trachea midline, no thyromegaly Respiratory: no respiratory distress Auscultation: lungs clear to auscultation bilaterally Cardiovascular: Rate/Rhythm: regular rate and regular rhythm; not tachycardic Heart Sounds: normal S1 and normal S2; no murmur Extremities: no edema Gastrointestinal (Abdomen): Inspection/Auscultation: normal bowel sounds; abdomen not distended Percussion/Palpation: abdomen soft; abdomen nontender Musculoskeletal: Examination of the right shoulder did not show any swelling, warmth or pain with movement. Edema localized tenderness noted over the arm. No numbness and or tingling involving the fingers and no sensory abnormality Neurologic: normal touch/pain/proprioception and moves all extremities; no focal motor deficits Lymphatic: no cervical or axillary lymphadenopathy Principal Dx & Hospital Course #1 = Principal Diagnosis (1) Sickle cell pain crisis: (2) Acute pain of left shoulder: (3) Sickle cell disease: Plan 22-year-old man admitted with pain secondary to sickle cell flare precipitated by cold temperatures when he was staying out in an RV which lost heat. He was admitted and placed on pain management and IV fluids with resolution of symptoms. Hematology did see him during this admission and recommended continued folic acid supplementation with outpatient evaluation follow-up in the clinic for discussion about hydroxyurea therapy especially seasonally if his sickle cell pain crisis is worse during the winter. At time of discharge he was hemodynamically stable and afebrile and tolerating p.o. His initial symptoms had completely resolved and he was discharged in stable condition with close primary care follow-up recommended. Discharge Exam CONSTITUTIONAL: WNWD, vitals as above, generally well-appearing, NAD EYES: normal conjunctivae, no scleral icterus ENT: external ear and nose normal, MMM NECK: trachea midline RESPIRATORY: clear to auscultation bilaterally, no crackles, rales or wheezes, normal respiratory effort CARDIOVASCULAR: regular rate and rhythm, S1 and 2 heard without murmurs, gallops or rubs, no JVD, no peripheral edema CHEST: inspection of chest was normal GASTROINTESTINAL: soft, nontender, ND, no guarding MUSCULOSKELETAL: strength 5/5 throughout, head is normocephalic and atraumatic SKIN: warm and dry NEUROLOGIC: CN 2-12 grossly intact, no sensory deficit, normal cognition, normal speech, no tremor PSYCHIATRIC: alert cooperative and oriented to person, place and time. Updated Medication List Medication Instructions Recorded Confirmed Type albuterol sulfate 90 mcg/actuation 2 puff inhalation Q6H PRN 01/01/23 07/23/23 History aerosol inhaler Shortness Of Breath Or Wheezing fluticasone propionate 50 2 spray intranasal DAILY PRN 01/01/23 07/23/23 History mcg/actuation nasal allergies spray,suspension folic acid 1 mg tablet 1 mg PO DAILY 01/01/23 07/23/23 History methylphenidate HCl 10 mg tablet 10 mg PO DAILY@1500 01/01/23 07/23/23 History methylphenidate HCl 36 mg 36 mg PO DAILY@0900 01/01/23 07/23/23 History tablet,extended release 24 hr montelukast 10 mg tablet 10 mg PO DAILY 01/01/23 07/23/23 History fexofenadine 180 mg tablet 180 mg PO DAILY 06/12/23 07/23/23 History omeprazole 40 mg capsule,delayed 40 mg PO DAILY 06/12/23 07/23/23 History release oxycodone 5 mg tablet 5 mg PO Q6H PRN severe pain (scale 07/25/23 Rx score 7-10) #20 tabs Hospital Stay Data Consultations 07/23/23 15:35 ED Decision to Admit Stat 07/24/23 09:12 Consult Hematology Routine Pending Results Patient Have Any Pending Studies at Discharge: No Discharge Instructions Given to Patient (Per Discharging Provider) Please continue all medications as instructed on the discharge list below. Please consider close followup with Hematology in consideration for starting hydroxyurea therapy moving into the winter. It is recommended that you have a close primary care followup to recheck your bilirubin level, mildly elevated to 1.8 at time of discharge. As you are doing, please continue efforts to avoid triggers for pain such as exposure to cold environments. It was a pleasure taking care of you! Please call if you have any questions or problems. You can reach a [facility] hospitalist on duty at [facility] 24 hours a day by calling [phone]. Take care of yourself. Clau Jara DO [facility] Hospitalist Total Time Total Time Spent Total Time Spent (In Minutes): 60
== END 2023-07-25 14:21 | disposition home or self-care (01) ==
LOC: ED 12:57 → 3W 12:57 → SUATTDRO 18:47 → 3W 20:01

== ENCOUNTER 2023-11-01 17:49 | Inpatient (IN) ==
[2023-11-01 19:28] LABS: Basophils # (auto) 0.06 K/uL (0.00-0.20); Basophils % (auto) 0.8 %; Eosinophils # (auto) 0.12 K/uL (0.00-0.50); Eosinophils % (auto) 1.6 %; Hematocrit (blood only) 41.5 % (42.0-52.0); Hemoglobin 14.9 g/dl (14.0-18.0); Immature Granulocytes # (auto) 0.03 K/uL (0.01-0.20); Immature Granulocytes % (auto) 0.4 %; Lymphocytes # (auto) 2.44 K/uL (1.20-3.40); Lymphocytes % (auto) 33.1 %; Mean Corpuscular Hgb Conc 35.9 g/dL (32.0-36.0); Mean Corpuscular Volume 69.6 fL (80.0-100.0); Monocytes # (auto) 0.58 K/uL (0.11-0.59); Monocytes % (auto) 7.9 %; Neutrophils # (auto) 4.14 K/uL (1.40-6.50); Neutrophils % (auto) 56.2 %; RDW Coefficient of Variation 18.8 % (11.5-14.5); RDW Standard Deviation 43.8 fL (36.4-46.3); Red Blood Count 5.96 M/uL (4.70-6.10); Reticulocyte % 2.98 % (0.50-2.00); White Blood Count 7.37 K/ul (4.8-10.8)
[2023-11-01 19:38] LABS: Albumin Globulin Ratio 2.1 (0.9-2); Albumin Level 4.8 gm/dl (3.4-5.0); BUN Creatinine Ratio 10.2 (10-20); Bilirubin Direct 0.2 mg/dl (0-0.2); Bilirubin,Total 1.3 mg/dl (0.2-1.0); Calcium 9.6 mg/dl (8.6-10.3); Creatinine Clr Calc Pharmacy 147.2 ml/min; Est GFR (African American) 141.3 ml/min; Est GFR (Non-African American) 121.9 ml/min; Globulin 2.3 gm/dl (2.5-4.0); Potassium 3.9 mmol/L (3.5-5.1); Total Protein 7.1 gm/dl (6.0-8.3)
[2023-11-01 20:45] LABS: Platelet Count 243 K/uL (130-400); Polychromasia 1+; Stomatocytes 1+; Target Cells 3+
[2023-11-01] MEDS ORDERED: HYDROmorphone INJ 1 MG/ML SYRINGE IV STA (21:17)
[2023-11-01] MEDS ORDERED: SODIUM CHLORIDE 0.9% 1,000 ML IV ONE (21:17)
--- NOTE | 2023-11-01 21:34 | Emergency Department Note ---
Impression & Plan Sickle cell pain crisis, Acute pain of right knee ED Provider Note Provider: Espinoza Butler MD DATE OF SERVICE: 11/01/2023 CHIEF COMPLAINT: Right knee pain HISTORY OF PRESENT ILLNESS: Patient is a 23-year-old gentleman history of sickle cell disease presenting here today reporting pain developing since this morning in the right knee. Denies any trauma. Denies fever chest pain or shortness of breath. Denies other pain. Localized just to the knee and it feels deep. Heart is more with up some movements. Has been try to use all medications including multiple dose of ibuprofen as well as oxycodone. Escalating and not improving his pain that much less came here. Has a history of flares before. Is working to discussed with hematology possible hydroxyurea treatment but not scheduled until November with [facility]. PAST MEDICAL HISTORY: As noted above MEDICATIONS: Reviewed home medications SOCIAL HISTORY: Non-smoker PHYSICAL EXAM: GENERAL: alert and oriented in no acute distress on stretcher Head: normocephalic and atraumatic EYES: No injection, discharge or icterus. NECK: Trachea midline ENT: Mucous membranes pink and moist. LUNGS: Airway patent. No retractions or tachypnea HEART: Regular rate and rhythm. No chest wall tenderness ABDOMEN: Soft and non-tender, without guarding or rebound. SKIN: Acyanotic, warm, dry, without rashes EXTREMITIES: Without swelling, tenderness or deformity except for some mild tenderness of the right knee and pain worse with ROM of the right knee. No significant tenderness of right calf or foot. NEUROLOGICAL: No focal deficits. No aphasia. No facial droop or slurred speech. Normal strength and tone in the extremities. Sensation to gross touch normal. Ambulatory with a bit of a limp around the right knee. Three-view right knee x-ray per my interpretation: No evidence of fracture or dislocation. No significant effusion noted. PDMP was checked without noted issue. Patient's laboratory studies and imaging reviewed. Differential includes Fracture, subluxation, dislocation, contusion, ligamentous injury, neurovascular, compartment syndrome, rhabdomyolysis, sickle cell crisis as well as other pathologies. IMPRESSION/MEDICAL DECISION MAKING: Denies any significant trauma. No swelling of the calf or foot and doubt this represents DVT. History of sickle cell and states this feels similar. No chest pain or shortness of breath or fever reported. Doubt acute chest syndrome. Blood work obtained here without significant leukocytosis or anemia. Reticulocyte count is elevated. No significant lecture light abnormalities signs of renal dysfunction. No significant AST or ALT elevation. Given some IV fluid and Dilaudid. States he feels that he be admitted as the oral pain medication was insufficient to control his pain as he has significant past experience with similar issues. Doubt this represents a septic joint or hemarthrosis given lack of trauma and lack of fevers. X-ray was obtained for completeness however. Do not see any obvious abnormality on the x-rays. Discussed with the [facility] hospitalist team for further care here and pain control. DIAGNOSIS: Right knee pain, sickle cell crisis DISPOSITION: Hospitalist will evaluate Patient was agreeable with this plan. Past Med/Surg History Medical History Asthma Sickle cell disease Splenic sequestration Surgical History No pertinent past surgical history Family History (Updated 07/23/23 @ 16:19 by Janis Cota PA-C) Other Deep vein thrombosis Heart disease Stroke Social History Smoking Status: Never smoker Second Hand Exposure: No; Do You Dip or Chew Tobacco: No; Hx Alcohol Use: Yes Alcohol type: beer Alcohol Intake Frequency: 2-4 x/Month Hx Substance Use: No Preferred Language: German Communication Ability: Effective Manager Relationship Required: No Beliefs That Will Affect Care: None Current Living Situation: Other Current Living Situation Comment: [employer] current occupational status: student Feels Safe at Home: Yes Assistive Devices: None Allergies Allergies Allergy/AdvReac Type Severity Reaction Status Date / Time No Known Allergies Allergy Verified 11/01/23 22:32 Home Meds Home Medications Medication Instructions Recorded Confirmed albuterol sulfate 90 mcg/actuation 2 puff inhalation Q6H PRN 01/01/23 11/01/23 aerosol inhaler Shortness Of Breath Or Wheezing fluticasone propionate 50 2 spray intranasal DAILY PRN 01/01/23 11/01/23 mcg/actuation nasal allergies spray,suspension folic acid 1 mg tablet 1 mg PO DAILY 01/01/23 11/01/23 methylphenidate HCl 10 mg tablet 10 mg PO DAILY@1500 01/01/23 11/01/23 montelukast 10 mg tablet 10 mg PO DAILY 01/01/23 11/01/23 fexofenadine 180 mg tablet 180 mg PO DAILY 06/12/23 11/01/23 omeprazole 40 mg capsule,delayed 40 mg PO DAILY 06/12/23 11/01/23 release methylphenidate HCl 54 mg 54 mg PO QAM 11/01/23 11/01/23 tablet,extended release 24 hr Previous Rx's Medication Instructions Recorded oxycodone 5 mg tablet 5 mg PO Q6H PRN severe pain (scale 07/25/23 score 7-10) #20 tabs Results & Data (ED) Vital Signs Vital Signs - 24 hr 11/01/23 18:39 11/01/23 19:15 11/01/23 19:33 Temperature 35.4 C L Temperature Source Temporal Artery Scan Pulse Rate 71 Pulse Rate [Right Finger] 77 Respiratory Rate 18 16 Respiratory Effort / Characteristics Non-Labored Respiratory Depth Normal Respiratory Pattern Blood Pressure 121/71 Blood Pressure [Right Arm] 124/75 Blood Pressure Mean 87 Blood Pressure Mean [Right Arm] 91 Blood Pressure Position [Right Arm] Pulse Oximetry 98 97 Oxygen Delivery Method Room Air Room Air Sepsis Recent Fever Within 48 Hours No Sepsis New/Unexplained Change in Mental Status No Sepsis Action Taken by Nursing No Action Required 11/01/23 21:48 11/01/23 21:48 Temperature Temperature Source Pulse Rate 77 Pulse Rate [Right Finger] 69 Respiratory Rate 18 18 Respiratory Effort / Characteristics Non-Labored Spontaneous Respiratory Depth Normal Respiratory Pattern Regular Blood Pressure 142/81 H Blood Pressure [Right Arm] 142/81 H Blood Pressure Mean 101 Blood Pressure Mean [Right Arm] 101 Blood Pressure Position [Right Arm] Semi-fowlers Pulse Oximetry 97 97 Oxygen Delivery Method Room Air Room Air Sepsis Recent Fever Within 48 Hours Sepsis New/Unexplained Change in Mental Status Sepsis Action Taken by Nursing Laboratory Data 11/01/23 19:05 11/01/23 19:05 Lab Results 11/01/23 11/01/23 Range/Units 19:05 21:45 WBC 7.37 (4.8-10.8) K/ul RBC 5.96 (4.70-6.10) M/uL Hgb 14.9 (14.0-18.0) g/dl Hct 41.5 L (42.0-52.0) % MCV 69.6 L (80.0-100.0) fL MCH 25.0 (25.0-34.0) pg MCHC 35.9 (32.0-36.0) g/dL RDW Std Deviation 43.8 (36.4-46.3) fL RDW Coeff of Wendi 18.8 H (11.5-14.5) % Plt Count 243 (130-400) K/uL MPV 10.0 (9.4-12.4) fL Immature Gran % (Auto) 0.4 % Neut % (Auto) 56.2 % Lymph % (Auto) 33.1 % [place] % (Auto) 7.9 % Eos % (Auto) 1.6 % Baso % (Auto) 0.8 % Reticulocyte % (Auto) 2.98 H (0.50-2.00) % Neut # (Auto) 4.14 (1.40-6.50) K/uL Lymph # (Auto) 2.44 (1.20-3.40) K/uL [place] # (Auto) 0.58 (0.11-0.59) K/uL Eos # (Auto) 0.12 (0.00-0.50) K/uL Baso # (Auto) 0.06 (0.00-0.20) K/uL Reticulocyte # 0.180 H (0.020-0.100) 10^6/uL Immature Gran # (Auto) 0.03 (0.01-0.20) K/uL Polychromasia 1+ Target Cells 3+ Stomatocytes 1+ Sodium 136 (136-145) mmol/L Potassium 3.9 (3.5-5.1) mmol/L Chloride 104 (98-107) mmol/L Carbon Dioxide 25 (21-32) mmol/L Anion Gap 7 (3-11) BUN 9 (6-23) mg/dl Creatinine 0.88 (0.6-1.4) mg/dl Est Cr Clr Drug Dosing 147.2 ml/min Est GFR ( Amer) 141.3 ml/min Est GFR (Non-Af Amer) 121.9 ml/min BUN/Creatinine Ratio 10.2 (10-20) Glucose 89 (70-99(Fasting)) mg/dl Calcium 9.6 (8.6-10.3) mg/dl Total Bilirubin 1.3 H (0.2-1.0) mg/dl Direct Bilirubin 0.2 (0-0.2) mg/dl AST 35 (13-39) U/L ALT 49 (7-52) U/L Alkaline Phosphatase 46 (34-104) U/L Total Protein 7.1 (6.0-8.3) gm/dl Albumin 4.8 (3.4-5.0) gm/dl Globulin 2.3 L (2.5-4.0) gm/dl Albumin/Globulin Ratio 2.1 H (0.9-2) SARS-CoV-2, RNA, NAAT NEGATIVE (NEGATIVE) Administered Medications Discontinued Medications Hydromorphone HCl (Hydromorphone Inj 1 Mg/Ml Syringe) 1 mg IV NOW STA Stop: 11/01/23 21:18 Last Admin: 11/01/23 21:44 Dose: 1 mg Documented By: MADDIE Sodium Chloride (Nss) 1,000 mls @ 999 mls/hr IV .Q1H1M ONE Stop: 11/01/23 22:17 Last Admin: 11/01/23 21:44 Dose: 999 mls/hr Documented By: MADDIE Discharge Plan Visit Data Chief Complaint: Illness Stated Complaint: SICKLE CELL, RT LEG PAIN ED Provider: Espinoza Butler Discharge Problem: Sickle cell pain crisis, Acute pain of right knee Patient Disposition: Being Evaluated by Hospitalist Forms Stand Alone Forms: My [facility] Prescriptions Prescriptions: No Action methylphenidate HCl 10 mg tablet 10 mg PO DAILY@1500 Rx Instructions: daily at home folic acid 1 mg tablet 1 mg PO DAILY montelukast 10 mg tablet 10 mg PO DAILY fluticasone propionate 50 mcg/actuation spray,suspension 2 spray INTRANASAL DAILY PRN (Reason: allergies) albuterol sulfate 90 mcg/actuation HFA aerosol inhaler 2 puff INHALATION Q6H PRN (Reason: Shortness Of Breath Or Wheezing) fexofenadine 180 mg Tablet 180 mg PO DAILY omeprazole 40 mg capsule,delayed release(DR/EC) 40 mg PO DAILY oxycodone 5 mg Tablet 5 mg PO Q6H PRN (Reason: severe pain (scale score 7-10)) Qty: 20 0RF methylphenidate HCl 54 mg Tablet Extended Release 24hr 54 mg PO QAM Referrals Referrals: [facility] [Primary Care Provider] -
[2023-11-01 23:18] LABS: Appearance Urine Clear (Clear); Bilirubin Urine Negative (Negative); Blood Urine Negative (Negative); Color Urine Yellow; Glucose Urine UA Negative (Negative); Ketones Urine Negative (Negative); Leukocyte Esterase Urine Negative (Negative); Nitrite Urine Negative (Negative); Protein Urine Negative (Negative); Specific Gravity Urine 1.008 (1.000-1.030); Urobilinogen Urine Negative (Negative)
--- NOTE | 2023-11-01 23:41 | History & Physical Report ---
Date of Service November 01, 2023 Assessment & Plan (1) Sickle cell pain crisis: Plan: 23-year-old male with past medical history significant for sickle cell type SC, asthma presents with right knee pain that started today morning. Could not able to control with p.o. pain medications. Denies any fevers. No chest pain or shortness of breath. No nausea, no vomiting. No abdominal pain. No headache. No back pain. Vision is okay. No earache or runny nose or sore throat. Normal bowel and bladder movements. Resting comfortably. Hemodynamic stable. Patient states when he has sickle cell crisis usually has pain in his joints mostly in the elbows or knees. Has appointment with heme-onc in November. Possible sickle cell pain crisis In right knee Pain control with IV Dilaudid as needed IV fluids Labs look okay We will follow repeat labs Close monitor History of asthma Seems stable Continue home inhalers DVT prophylaxis Lovenox Disposition Med/tele Full code History of Present Illness Chief Complaint: Sickle cell pain crisis Primary Care Provider: [facility] 23-year-old male with past medical history significant for sickle cell type SC, asthma presents with right knee pain that started today morning. Could not able to control with p.o. pain medications. Denies any fevers. No chest pain or shortness of breath. No nausea, no vomiting. No abdominal pain. No headache. No back pain. Vision is okay. No earache or runny nose or sore throat. Normal bowel and bladder movements. Resting comfortably. Hemodynamic stable. Patient states when he has sickle cell crisis usually has pain in his joints mostly in the elbows or knees. Has appointment with heme-onc in November. Past medical history. As mentioned above. Past surgical history. None as per records Social history. No smoking. Alcohol occasional. No drug use. Family history. Father has hyperlipidemia. Sleep apnea.hgb C Mother had DVT. hgb S Allergies Allergy/AdvReac Type Severity Reaction Status Date / Time No Known Allergies Allergy Verified 11/01/23 22:32 Home Medications Medication Instructions Recorded Confirmed Type albuterol sulfate 90 mcg/actuation 2 puff inhalation Q6H PRN 01/01/23 11/01/23 History aerosol inhaler Shortness Of Breath Or Wheezing fluticasone propionate 50 2 spray intranasal DAILY PRN 01/01/23 11/01/23 History mcg/actuation nasal allergies spray,suspension folic acid 1 mg tablet 1 mg PO DAILY 01/01/23 11/01/23 History methylphenidate HCl 10 mg tablet 10 mg PO DAILY@1500 01/01/23 11/01/23 History montelukast 10 mg tablet 10 mg PO DAILY 01/01/23 11/01/23 History fexofenadine 180 mg tablet 180 mg PO DAILY 06/12/23 11/01/23 History omeprazole 40 mg capsule,delayed 40 mg PO DAILY 06/12/23 11/01/23 History release oxycodone 5 mg tablet 5 mg PO Q6H PRN severe pain (scale 07/25/23 11/01/23 Rx score 7-10) #20 tabs methylphenidate HCl 54 mg 54 mg PO QAM 11/01/23 11/01/23 History tablet,extended release 24 hr Past Med/Surg History Medical History Asthma Sickle cell disease Splenic sequestration Surgical History No pertinent past surgical history Family History (Updated 07/23/23 @ 16:19 by Janis Cota PA-C) Other Deep vein thrombosis Heart disease Stroke Social History Smoking Status: Never smoker Second Hand Exposure: No; Do You Dip or Chew Tobacco: No; Hx Alcohol Use: No Hx Substance Use: No Preferred Language: Macedonian Communication Ability: Effective Goal Umpire Required: No Beliefs That Will Affect Care: None Current Living Situation: Other Current Living Situation Comment: [employer] current occupational status: student Other Information That Helps Us Care for You: No Feels Safe at Home: Yes Safety Concerns: Feels Safe At This Time Assistive Devices: None Review of Systems Review of Systems: All systems reviewed & are unremarkable except as noted in HPI & below Physical Exam Physical Exam: General- Not in distress Head- atraumatic Eyes- PERRL. ENT- oropharynx clear Neck- supple, no JVD. Lungs- clear to auscultation no wheezing or crackles. Heart- regular rhythm; no murmur, no gallop. Abdomen- normal bowel sounds, soft, nontender, no distension. Extremities- no pretibial edema, right knee tender to palpation and painful right knee movements. Neuro- alert, oriented x 3; PERRL, no facial palsy; no dysarthria; moves extremities. Skin- warm & dry Results & Data Results & Data Vital Signs (Past 12 Hours) Vital Signs Temp Pulse Pulse Resp BP BP Pulse Ox 11/01/23 23:00 79 18 108/56 L 98 11/01/23 21:48 69 18 142/81 H 97 11/01/23 21:48 77 18 142/81 H 97 11/01/23 19:33 77 16 124/75 97 11/01/23 18:39 35.4 C L 71 18 121/71 98 O2 Del Method 11/01/23 23:00 Room Air 11/01/23 21:48 Room Air 11/01/23 21:48 Room Air 11/01/23 19:33 Room Air 11/01/23 18:39 Room Air Diagnostic Findings Laboratory Results WBC 7.37 K/ul (4.8-10.8) 11/01/23 19:05 RBC 5.96 M/uL (4.70-6.10) 11/01/23 19:05 Hgb 14.9 g/dl (14.0-18.0) 11/01/23 19:05 Hct 41.5 % (42.0-52.0) L 11/01/23 19:05 MCV 69.6 fL (80.0-100.0) L 11/01/23 19:05 MCH 25.0 pg (25.0-34.0) 11/01/23 19:05 MCHC 35.9 g/dL (32.0-36.0) 11/01/23 19:05 RDW Std Deviation 43.8 fL (36.4-46.3) 11/01/23 19:05 RDW Coeff of Wendi 18.8 % (11.5-14.5) H 11/01/23 19:05 Plt Count 243 K/uL (130-400) 11/01/23 19:05 MPV 10.0 fL (9.4-12.4) 11/01/23 19:05 Immature Gran % (Auto) 0.4 % 11/01/23 19:05 Neut % (Auto) 56.2 % 11/01/23 19:05 Lymph % (Auto) 33.1 % 11/01/23 19:05 [place] % (Auto) 7.9 % 11/01/23 19:05 Eos % (Auto) 1.6 % 11/01/23 19:05 Baso % (Auto) 0.8 % 11/01/23 19:05 Reticulocyte % (Auto) 2.98 % (0.50-2.00) H 11/01/23 19:05 Neut # (Auto) 4.14 K/uL (1.40-6.50) 11/01/23 19:05 Lymph # (Auto) 2.44 K/uL (1.20-3.40) 11/01/23 19:05 [place] # (Auto) 0.58 K/uL (0.11-0.59) 11/01/23 19:05 Eos # (Auto) 0.12 K/uL (0.00-0.50) 11/01/23 19:05 Baso # (Auto) 0.06 K/uL (0.00-0.20) 11/01/23 19:05 Reticulocyte # 0.180 10^6/uL (0.020-0.100) H 11/01/23 19:05 Immature Gran # (Auto) 0.03 K/uL (0.01-0.20) 11/01/23 19:05 Polychromasia 1+ 11/01/23 19:05 Target Cells 3+ 11/01/23 19:05 Stomatocytes 1+ 11/01/23 19:05 Sodium 136 mmol/L (136-145) 11/01/23 19:05 Potassium 3.9 mmol/L (3.5-5.1) 11/01/23 19:05 Chloride 104 mmol/L (98-107) 11/01/23 19:05 Carbon Dioxide 25 mmol/L (21-32) 11/01/23 19:05 Anion Gap 7 (3-11) 11/01/23 19:05 BUN 9 mg/dl (6-23) 11/01/23 19:05 Creatinine 0.88 mg/dl (0.6-1.4) 11/01/23 19:05 Est Cr Clr Drug Dosing 147.2 ml/min 11/01/23 19:05 Est GFR ( Amer) 141.3 ml/min 11/01/23 19:05 Est GFR (Non-Af Amer) 121.9 ml/min 11/01/23 19:05 BUN/Creatinine Ratio 10.2 (10-20) 11/01/23 19:05 Glucose 89 mg/dl (70-99(Fasting)) 11/01/23 19:05 Calcium 9.6 mg/dl (8.6-10.3) 11/01/23 19:05 Total Bilirubin 1.3 mg/dl (0.2-1.0) H 11/01/23 19:05 Direct Bilirubin 0.2 mg/dl (0-0.2) 11/01/23 19:05 AST 35 U/L (13-39) 11/01/23 19:05 ALT 49 U/L (7-52) 11/01/23 19:05 Alkaline Phosphatase 46 U/L (34-104) 11/01/23 19:05 Total Protein 7.1 gm/dl (6.0-8.3) 11/01/23 19:05 Albumin 4.8 gm/dl (3.4-5.0) 11/01/23 19:05 Globulin 2.3 gm/dl (2.5-4.0) L 11/01/23 19:05 Albumin/Globulin Ratio 2.1 (0.9-2) H 11/01/23 19:05 Urine Color Yellow 11/01/23 22:37 Urine Appearance Clear (Clear) 11/01/23 22:37 Urine pH 7.0 (4.5-7.5) 11/01/23 22:37 Ur Specific [place] 1.008 (1.000-1.030) 11/01/23 22:37 Urine Protein Negative (Negative) 11/01/23 22:37 Urine Glucose (UA) Negative (Negative) 11/01/23 22:37 Urine Ketones Negative (Negative) 11/01/23 22:37 Urine Blood Negative (Negative) 11/01/23 22:37 Urine Nitrite Negative (Negative) 11/01/23 22:37 Urine Bilirubin Negative (Negative) 11/01/23 22:37 Urine Urobilinogen Negative (Negative) 11/01/23 22:37 Ur Leukocyte Esterase Negative (Negative) 11/01/23 22:37 SARS-CoV-2, RNA, NAAT NEGATIVE (NEGATIVE) 11/01/23 21:45 Code Status & VTE Plan VTE Prophylaxis Plan VTE Prophylaxis will be ordered: Yes
[2023-11-02] MEDS ORDERED: HYDROmorphone INJ 0.5 MG/0.5 ML SYR IV STA (00:18)
[2023-11-02] MEDS ORDERED: FLUTICASONE PROPIONATE NA SPR 16 GM BTL PRN (01:59)
[2023-11-02] MEDS ORDERED: ALBUTEROL HFA 8 GM INHALER INH PRN (01:59)
[2023-11-02] MEDS ORDERED: ACETAMINOPHEN 325 MG TAB PO PRN (01:59)
[2023-11-02] MEDS ORDERED: NITROGLYCERIN SL 0.4 MG/TAB TAB SL PRN (01:59)
[2023-11-02] MEDS ORDERED: POLYETHYLENE (MIRALAX) 17 GM PACK PO PRN (01:59)
[2023-11-02] MEDS: HYDROmorphone INJ 0.5 MG/0.5 ML SYR IV PRN ×3 (03:05→14:36)
[2023-11-02] MEDS: SODIUM CHLORIDE 0.9% 1,000 ML IV SCH ×4 (03:05→22:50)
[2023-11-02 05:53] LABS: Basophils # (auto) 0.04 K/uL (0.00-0.20); Basophils % (auto) 0.6 %; Eosinophils # (auto) 0.16 K/uL (0.00-0.50); Eosinophils % (auto) 2.4 %; Hematocrit (blood only) 35.3 % (42.0-52.0); Hemoglobin 12.6 g/dl (14.0-18.0); Immature Granulocytes # (auto) 0.02 K/uL (0.01-0.20); Immature Granulocytes % (auto) 0.3 %; Lymphocytes % (auto) 45.9 %; Mean Corpuscular Hgb Conc 35.7 g/dL (32.0-36.0); Mean Platelet Volume 9.4 fL (9.4-12.4); Monocytes # (auto) 0.59 K/uL (0.11-0.59); Neutrophils # (auto) 2.73 K/uL (1.40-6.50); Neutrophils % (auto) 41.8 %; Platelet Count 187 K/uL (130-400); RDW Coefficient of Variation 17.9 % (11.5-14.5); RDW Standard Deviation 44.2 fL (36.4-46.3); Red Blood Count 5.04 M/uL (4.70-6.10); White Blood Count 6.54 K/ul (4.8-10.8)
[2023-11-02 05:59] LABS: Anion Gap 5 (3-11); BUN Creatinine Ratio 10.7 (10-20); Blood Urea Nitrogen 8 mg/dl (6-23); Calcium 9.2 mg/dl (8.6-10.3); Carbon Dioxide 26 mmol/L (21-32); Chloride 105 mmol/L (98-107); Creatinine Clr Calc Pharmacy 172.7 ml/min; Est GFR (African American) > 150.0 ml/min; Est GFR (Non-African American) 130.2 ml/min; Glucose 90 mg/dl (70-99(Fasting)); Magnesium 2.1 mg/dl (1.7-2.4); Potassium 4.1 mmol/L (3.5-5.1); Sodium 136 mmol/L (136-145)
--- NOTE | 2023-11-02 06:58 | XRay Report ---
XR knee RT 3V CLINICAL HISTORY: pain TECHNIQUE: 3 views of the right knee were obtained. Comparison: Comparison is made to right knee radiograph 06/12/2023 FINDINGS: There is no evidence of an acute fracture. Joint spaces are well-preserved. No joint effusion is seen . No soft tissue abnormality is seen. IMPRESSION: No evidence of acute osseous injury. ACT 112: Negative or not required by law. Electronically signed by: Rick Mckeon M.D. 11/02/2023 6:56 AM
[2023-11-02] MEDS: ENOXAPARIN INJ 40 MG/0.4 ML SYR SQ SCH (08:15)
[2023-11-02] MEDS: MONTELUKAST SODIUM 10 MG TABLET PO SCH (08:32)
[2023-11-02] MEDS: PANTOprazole 40 MG TAB PO SCH (08:32)
[2023-11-02] MEDS: FEXOFENADINE HCL 180 MG TAB PO SCH (08:32)
[2023-11-02] MEDS: FOLIC ACID 1 MG TAB PO SCH (08:32)
[2023-11-02] MEDS: KETOROLAC TROMETHAMINE 15 MG/ML VIAL IV PRN ×3 (11:25→22:50)
[2023-11-02] MEDS ORDERED: METHYLPHENIDATE HCL 10 MG TABLET PO SCH (15:00)
--- NOTE | 2023-11-02 15:27 | Hospitalist Progress Note ---
Date of Service November 02, 2023 Assessment & Plan (1) Sickle cell pain crisis: Plan: 23 yo M with sickle cell type SC, asthma presents with right knee pain. Could not able to control with p.o. pain medications. Denies any fevers. No chest pain or shortness of breath. No nausea, no vomiting. No abdominal pain. No headache. No back pain. Vision is okay. No earache or runny nose or sore throat. Hemodynamic stable. Patient states when he has sickle cell crisis usually has pain in his joints mostly in the elbows or knees. Has appointment with heme-onc in November. Possible sickle cell pain crisis In right knee Pain control with IV toradol, IV Dilaudid as needed IV fluids Heme consulted, discussed with Labs unremarkable We will follow repeat labs Closely monitor History of asthma Seems stable Continue home inhalers DVT prophylaxis Lovenox Disposition Med/tele Full code Admission and Anticipated Discharge Date Admission Date: November 01, 2023 Subjective Pt seen in follow up of sickle cell crisis, pain in his knee Currently laying in bed in NAD, overall feeling well and improved No chest pain or shortness of breath Cont. IVF, pain meds, hematology consulted Review of Systems Review of Systems: All systems reviewed & are unremarkable except as noted in Subjective Physical Exam Physical Exam: General- WD/WN young M in NAD Head- atraumatic Eyes- PERRL. ENT- oropharynx clear Neck- supple, no JVD. Lungs- clear to auscultation no wheezing or crackles. Heart- regular rhythm; no murmur, no gallop. Abdomen- normal bowel sounds, soft, nontender, no distension. Extremities- no pretibial edema, right knee mildly tender to palpation Neuro- alert, oriented x 3; PERRL, no facial palsy; no dysarthria; moves extremities. Skin- warm & dry Results & Data Results & Data Vital Signs (Past 12 Hours) Vital Signs Temp Pulse Pulse Resp BP Pulse Ox O2 Del Method 11/02/23 14:00 73 11/02/23 12:00 36.7 C 71 16 102/58 L 98 Room Air 11/02/23 08:00 36.2 C L 56 L 18 102/56 L 98 Room Air 11/02/23 06:00 64 11/02/23 04:04 82 Laboratory Results 11/02/23 11/01/23 11/01/23 Range/Units 05:21 22:37 21:45 WBC 6.54 (4.8-10.8) K/ul RBC 5.04 (4.70-6.10) M/uL Hgb 12.6 L (14.0-18.0) g/dl Hct 35.3 L (42.0-52.0) % MCV 70.0 L (80.0-100.0) fL MCH 25.0 (25.0-34.0) pg MCHC 35.7 (32.0-36.0) g/dL RDW Std Deviation 44.2 (36.4-46.3) fL RDW Coeff of Wendi 17.9 H (11.5-14.5) % Plt Count 187 (130-400) K/uL MPV 9.4 (9.4-12.4) fL Immature Gran % (Auto) 0.3 % Neut % (Auto) 41.8 % Lymph % (Auto) 45.9 % [place] % (Auto) 9.0 % Eos % (Auto) 2.4 % Baso % (Auto) 0.6 % Reticulocyte % (Auto) (0.50-2.00) % Neut # (Auto) 2.73 (1.40-6.50) K/uL Lymph # (Auto) 3.00 (1.20-3.40) K/uL [place] # (Auto) 0.59 (0.11-0.59) K/uL Eos # (Auto) 0.16 (0.00-0.50) K/uL Baso # (Auto) 0.04 (0.00-0.20) K/uL Reticulocyte # (0.020-0.100) 10^6/uL Immature Gran # (Auto) 0.02 (0.01-0.20) K/uL Polychromasia Target Cells Stomatocytes Sodium 136 (136-145) mmol/L Potassium 4.1 (3.5-5.1) mmol/L Chloride 105 (98-107) mmol/L Carbon Dioxide 26 (21-32) mmol/L Anion Gap 5 (3-11) BUN 8 (6-23) mg/dl Creatinine 0.75 (0.6-1.4) mg/dl Est Cr Clr Drug Dosing 172.7 ml/min Est GFR ( Amer) > 150.0 ml/min Est GFR (Non-Af Amer) 130.2 ml/min BUN/Creatinine Ratio 10.7 (10-20) Glucose 90 (70-99(Fasting)) mg/dl Calcium 9.2 (8.6-10.3) mg/dl Magnesium 2.1 (1.7-2.4) mg/dl Total Bilirubin (0.2-1.0) mg/dl Direct Bilirubin (0-0.2) mg/dl AST (13-39) U/L ALT (7-52) U/L Alkaline Phosphatase (34-104) U/L Total Protein (6.0-8.3) gm/dl Albumin (3.4-5.0) gm/dl Globulin (2.5-4.0) gm/dl Albumin/Globulin Ratio (0.9-2) Urine Color Yellow Urine Appearance Clear (Clear) Urine pH 7.0 (4.5-7.5) Ur Specific [place] 1.008 (1.000-1.030) Urine Protein Negative (Negative) Urine Glucose (UA) Negative (Negative) Urine Ketones Negative (Negative) Urine Blood Negative (Negative) Urine Nitrite Negative (Negative) Urine Bilirubin Negative (Negative) Urine Urobilinogen Negative (Negative) Ur Leukocyte Esterase Negative (Negative) SARS-CoV-2, RNA, NAAT NEGATIVE (NEGATIVE) Blood Type Recheck A Positive Antigen Identification Cancelled 11/01/23 Range/Units 19:05 WBC 7.37 (4.8-10.8) K/ul RBC 5.96 (4.70-6.10) M/uL Hgb 14.9 (14.0-18.0) g/dl Hct 41.5 L (42.0-52.0) % MCV 69.6 L (80.0-100.0) fL MCH 25.0 (25.0-34.0) pg MCHC 35.9 (32.0-36.0) g/dL RDW Std Deviation 43.8 (36.4-46.3) fL RDW Coeff of Wendi 18.8 H (11.5-14.5) % Plt Count 243 (130-400) K/uL MPV 10.0 (9.4-12.4) fL Immature Gran % (Auto) 0.4 % Neut % (Auto) 56.2 % Lymph % (Auto) 33.1 % [place] % (Auto) 7.9 % Eos % (Auto) 1.6 % Baso % (Auto) 0.8 % Reticulocyte % (Auto) 2.98 H (0.50-2.00) % Neut # (Auto) 4.14 (1.40-6.50) K/uL Lymph # (Auto) 2.44 (1.20-3.40) K/uL [place] # (Auto) 0.58 (0.11-0.59) K/uL Eos # (Auto) 0.12 (0.00-0.50) K/uL Baso # (Auto) 0.06 (0.00-0.20) K/uL Reticulocyte # 0.180 H (0.020-0.100) 10^6/uL Immature Gran # (Auto) 0.03 (0.01-0.20) K/uL Polychromasia 1+ Target Cells 3+ Stomatocytes 1+ Sodium 136 (136-145) mmol/L Potassium 3.9 (3.5-5.1) mmol/L Chloride 104 (98-107) mmol/L Carbon Dioxide 25 (21-32) mmol/L Anion Gap 7 (3-11) BUN 9 (6-23) mg/dl Creatinine 0.88 (0.6-1.4) mg/dl Est Cr Clr Drug Dosing 147.2 ml/min Est GFR ( Amer) 141.3 ml/min Est GFR (Non-Af Amer) 121.9 ml/min BUN/Creatinine Ratio 10.2 (10-20) Glucose 89 (70-99(Fasting)) mg/dl Calcium 9.6 (8.6-10.3) mg/dl Magnesium (1.7-2.4) mg/dl Total Bilirubin 1.3 H (0.2-1.0) mg/dl Direct Bilirubin 0.2 (0-0.2) mg/dl AST 35 (13-39) U/L ALT 49 (7-52) U/L Alkaline Phosphatase 46 (34-104) U/L Total Protein 7.1 (6.0-8.3) gm/dl Albumin 4.8 (3.4-5.0) gm/dl Globulin 2.3 L (2.5-4.0) gm/dl Albumin/Globulin Ratio 2.1 H (0.9-2) Urine Color Urine Appearance (Clear) Urine pH (4.5-7.5) Ur Specific [place] (1.000-1.030) Urine Protein (Negative) Urine Glucose (UA) (Negative) Urine Ketones (Negative) Urine Blood (Negative) Urine Nitrite (Negative) Urine Bilirubin (Negative) Urine Urobilinogen (Negative) Ur Leukocyte Esterase (Negative) SARS-CoV-2, RNA, NAAT (NEGATIVE) Blood Type Recheck Antigen Identification Medications Administered Current Inpatient Medications Acetaminophen (Acetaminophen 325 Mg Tab) 650 mg PO Q4H PRN PRN Reason: Pain or Fever Stop: 12/02/23 01:58 Albuterol (Albuterol Hfa 8 Gm Inhaler) 2 puffs INH Q6H PRN PRN Reason: Shortness Of Breath Or Wheezin Stop: 12/02/23 01:58 Enoxaparin Sodium (Enoxaparin Inj 40 Mg/0.4 Ml Syr) 40 mg SQ Q24H [facility] Stop: 12/02/23 07:59 Last Admin: 11/02/23 08:15 Dose: 40 mg Fexofenadine HCl (Fexofenadine Hcl 180 Mg Tab) 180 mg PO DAILY [facility] Stop: 12/02/23 08:59 Last Admin: 11/02/23 08:32 Dose: 180 mg Fluticasone Propionate (Fluticasone Propionate Na Spr 16 Gm Btl) 2 sprays NA DAILY PRN PRN Reason: allergies Stop: 12/02/23 01:58 Folic Acid (Folic Acid 1 Mg Tab) 1 mg PO DAILY [facility] Stop: 12/02/23 08:59 Last Admin: 11/02/23 08:32 Dose: 1 mg Hydromorphone HCl (Hydromorphone Inj 0.5 Mg/0.5 Ml Syr) 0.5 mg IV Q3H PRN PRN Reason: Severe Pain (Scale 7, 8, 9,10) Stop: 11/16/23 01:58 Last Admin: 11/02/23 14:36 Dose: 0.5 mg Sodium Chloride (Nss) 1,000 mls @ 150 mls/hr IV .Q6H40M [facility] Stop: 12/02/23 01:58 Last Admin: 11/02/23 09:49 Dose: 150 mls/hr Ketorolac Tromethamine (Ketorolac Tromethamine 15 Mg/Ml Vial) 15 mg IV Q6H PRN PRN Reason: Pain Stop: 11/07/23 08:24 Last Admin: 11/02/23 11:25 Dose: 15 mg Methylphenidate HCl (Methylphenidate Hcl 10 Mg Tablet) 10 mg PO DAILY@1500 [facility] Stop: 11/16/23 14:59 Last Admin: 11/02/23 14:37 Dose: 10 mg Miscellaneous (Methylphenidate Hcl 54 Mg Er - Order Awaiting Action) 1 each N/A QS [facility] Stop: 12/02/23 07:59 Last Admin: 11/02/23 15:03 Dose: Not Given Montelukast Sodium (Montelukast Sodium 10 Mg Tablet) 10 mg PO DAILY [facility] Stop: 12/02/23 08:59 Last Admin: 11/02/23 08:32 Dose: 10 mg Nitroglycerin (Nitroglycerin Sl 0.4 Mg/Tab Tab) 0.4 mg SL Q5M PRN PRN Reason: Chest Pain Stop: 12/02/23 01:58 Oxycodone HCl (Oxycodone Hcl Ir 5 Mg Tab (Immediate Release)) 5 mg PO Q6H PRN PRN Reason: Moderate Pain (Scale 4, 5, 6) Stop: 11/16/23 01:58 Pantoprazole Sodium (Pantoprazole 40 Mg Tab) 40 mg PO DAILY [facility] Stop: 12/02/23 08:59 Last Admin: 11/02/23 08:32 Dose: 40 mg Polyethylene Glycol (Polyethylene (Miralax) 17 Gm Pack) 17 gm PO DAILY PRN PRN Reason: Constipation Stop: 12/02/23 01:58
--- NOTE | 2023-11-02 16:11 | Oncology Consultation ---
Date of Consultation November 02, 2023 Assessment & Plan (1) Sickle cell pain crisis: (2) Acute pain of right knee: Plan Gentleman admitted for right knee pain secondary to sickle cell crisis. Currently appears clinically stable. Pain appears better controlled with current pain regimen. Labs overall stable with microcytosis which is not typical for sickle cell disease but may indicate presence of thalassemia in addition to sickle cell. -Agree with supportive care with IV fluids, pain medications. Continue with folic acid -Follow-up with hematology at [facility] with Dr Horne or his local car driver at [place] to discuss potentially starting hydroxyurea since he has had mult iple sickle cell crisis over the past year. Thank you for this consult. Hematology will follow peripherally while patient's hospital. 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 He presented with right knee pain. X-ray of right knee was unremarkable. He was placed on IV fluids and IV pain medications with improvement in symptoms. He states that he is doing a lot better. Denies chest pain, shortness of breath, abdominal pain, nausea, vomiting, fever or chills. Follows with hematology at [facility]. He was scheduled to follow-up with Dr. oHrne locally but missed his last appointment. Allergies Allergy/AdvReac Type Severity Reaction Status Date / Time No Known Allergies Allergy Verified 11/01/23 22:32 Home Medications Medication Instructions Recorded Confirmed Type albuterol sulfate 90 mcg/actuation 2 puff inhalation Q6H PRN 01/01/23 11/01/23 History aerosol inhaler Shortness Of Breath Or Wheezing fluticasone propionate 50 2 spray intranasal DAILY PRN 01/01/23 11/01/23 History mcg/actuation nasal allergies spray,suspension folic acid 1 mg tablet 1 mg PO DAILY 01/01/23 11/01/23 History methylphenidate HCl 10 mg tablet 10 mg PO DAILY@1500 01/01/23 11/01/23 History montelukast 10 mg tablet 10 mg PO DAILY 01/01/23 11/01/23 History fexofenadine 180 mg tablet 180 mg PO DAILY 06/12/23 11/01/23 History omeprazole 40 mg capsule,delayed 40 mg PO DAILY 06/12/23 11/01/23 History release oxycodone 5 mg tablet 5 mg PO Q6H PRN severe pain (scale 07/25/23 11/01/23 Rx score 7-10) #20 tabs methylphenidate HCl 54 mg 54 mg PO QAM 11/01/23 11/01/23 History tablet,extended release 24 hr Patient History Medical History Asthma Sickle cell disease Splenic sequestration Surgical History No pertinent past surgical history Family History (Updated 07/23/23 @ 16:19 by Janis Cota PA-C) Other Deep vein thrombosis Heart disease Stroke Social History Smoking Status: Never smoker Second Hand Exposure: No; Do You Dip or Chew Tobacco: No; Hx Alcohol Use: No Hx Substance Use: No Preferred Language: Omani Communication Ability: Effective Cow Buyer Required: No Beliefs That Will Affect Care: None Current Living Situation: Other Current Living Situation Comment: [employer] current occupational status: student Other Information That Helps Us Care for You: No Feels Safe at Home: Yes Safety Concerns: Feels Safe At This Time Assistive Devices: None Results & Data Vital Signs (Past 12 Hours) Vital Signs Temp Pulse Pulse Resp BP Pulse Ox O2 Del Method 11/02/23 14:00 73 11/02/23 12:00 36.7 C 71 16 102/58 L 98 Room Air 11/02/23 08:00 36.2 C L 56 L 18 102/56 L 98 Room Air 11/02/23 06:00 64
[2023-11-02] MEDS: oxyCODONE HCL IR 5 MG TAB (IMMEDIATE RELEASE) PO PRN (20:16)
[2023-11-03] MEDS: HYDROmorphone INJ 0.5 MG/0.5 ML SYR IV PRN (00:54)
[2023-11-03] MEDS: SODIUM CHLORIDE 0.9% 1,000 ML IV SCH ×2 (05:31→11:38)
[2023-11-03] MEDS: oxyCODONE HCL IR 5 MG TAB (IMMEDIATE RELEASE) PO PRN ×2 (05:41→11:38)
[2023-11-03 06:27] LABS: Hematocrit (blood only) 35.7 % (42.0-52.0); Hemoglobin 12.6 g/dl (14.0-18.0); Mean Corpuscular Hgb Conc 35.3 g/dL (32.0-36.0); Mean Corpuscular Volume 70.7 fL (80.0-100.0); Mean Platelet Volume 10.5 fL (9.4-12.4); Platelet Count 180 K/uL (130-400); RDW Coefficient of Variation 17.6 % (11.5-14.5); RDW Standard Deviation 44.3 fL (36.4-46.3); Red Blood Count 5.05 M/uL (4.70-6.10); Reticulocyte % 2.57 % (0.50-2.00); White Blood Count 4.69 K/ul (4.8-10.8)
[2023-11-03 06:39] LABS: BUN Creatinine Ratio 14.9 (10-20); Creatinine Clr Calc Pharmacy 153.4 ml/min; Est GFR (Non-African American) 122.5 ml/min; Phosphorus 4.4 mg/dl (2.5-4.9); Potassium 4.4 mmol/L (3.5-5.1)
[2023-11-03] MEDS: KETOROLAC TROMETHAMINE 15 MG/ML VIAL IV PRN (08:01)
[2023-11-03] MEDS: ENOXAPARIN INJ 40 MG/0.4 ML SYR SQ SCH (08:02)
[2023-11-03] MEDS: MONTELUKAST SODIUM 10 MG TABLET PO SCH (08:03)
[2023-11-03] MEDS: PANTOprazole 40 MG TAB PO SCH (08:03)
[2023-11-03] MEDS: FEXOFENADINE HCL 180 MG TAB PO SCH (08:03)
[2023-11-03] MEDS: FOLIC ACID 1 MG TAB PO SCH (08:04)
--- NOTE | 2023-11-03 12:37 | Discharge Summary ---
Date of Service November 03, 2023 Admission HPI Per Admitting Provider 23-year-old male with past medical history significant for sickle cell type SC, asthma presents with right knee pain that started today morning. Could not able to control with p.o. pain medications. Denies any fevers. No chest pain or shortness of breath. No nausea, no vomiting. No abdominal pain. No headache. No back pain. Vision is okay. No earache or runny nose or sore throat. Normal bowel and bladder movements. Resting comfortably. Hemodynamic stable. Patient states when he has sickle cell crisis usually has pain in his joints mostly in the elbows or knees. Has appointment with heme-onc in November. Past medical history. As mentioned above. Past surgical history. None as per records Social history. No smoking. Alcohol occasional. No drug use. Family history. Father has hyperlipidemia. Sleep apnea.hgb C Mother had DVT. hgb S Admission Exam Per Admitting Provider General- Not in distress Head- atraumatic Eyes- PERRL. ENT- oropharynx clear Neck- supple, no JVD. Lungs- clear to auscultation no wheezing or crackles. Heart- regular rhythm; no murmur, no gallop. Abdomen- normal bowel sounds, soft, nontender, no distension. Extremities- no pretibial edema, right knee tender to palpation and painful right knee movements. Neuro- alert, oriented x 3; PERRL, no facial palsy; no dysarthria; moves extremities. Skin- warm & dry Principal Diagnosis Sickle cell pain crisis Discharge Exam General- WD/WN young M in NAD Head- atraumatic Eyes- PERRL. ENT- oropharynx clear Neck- supple, no JVD. Lungs- clear to auscultation no wheezing or crackles. Heart- regular rhythm; no murmur, no gallop. Abdomen- normal bowel sounds, soft, nontender, no distension. Extremities- no pretibial edema, right knee mildly tender to palpation Neuro- alert, oriented x 3; PERRL, no facial palsy; no dysarthria; moves extremities. Skin- warm & dry Discharge Data Allergies Allergy/AdvReac Type Severity Reaction Status Date / Time No Known Allergies Allergy Verified 11/01/23 22:32 Consultations 11/01/23 22:14 ED Decision to Admit Stat 11/02/23 07:19 Consult Hematology Routine Hospital Course (1) Sickle cell pain crisis: 23 yo M with sickle cell type SC, asthma presents with right knee pain. Could not able to control with p.o. pain medications. Denies any fevers. No chest pain or shortness of breath. No nausea, no vomiting. No abdominal pain. No headache. No back pain. Vision is okay. No earache or runny nose or sore throat. Hemodynamic stable. Patient states when he has sickle cell crisis usually has pain in his joints mostly in the elbows or knees. Has appointment with heme-onc in November. Sickle cell pain crisis In right knee Pain control with IV toradol, IV Dilaudid as needed IV fluids Heme consulted, discussed with Labs reviewed, not concerning Closely monitor History of asthma Seems stable Continue home inhalers Total Time Total Time Spent Total Time Spent (In Minutes): 40 Discharge Plan Discharge Items Patient Disposition: Home - Self-Care Reason For Visit: SICKLE CELL PAIN CRISIS Discharge Diagnosis: Sickle cell pain crisis Activity: Per Instructions section Non-emergency contact: Primary Care Provider and Specialist Call non-emergency contact if: you have any medication questions and your symptoms worsen Follow-up/Referrals: Efrem Parks PA-C [Other] (Date & Time 12/21/2023 11:00 AM Provider Efrem Parks PA-C Department Hematology/Oncology, [facility] ) [facility] [Primary Care Provider] - Diet: Regular Addtl Attending Provider Instructions: Follow up with 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 Make sure to stay well hydrated. Pending Studies at Discharge: No Stand-Alone Forms: My [facility] [employer], Smoking Cessation Medications and DC Order Prescriptions: New oxycodone 5 mg Tablet 5 mg PO Q6H PRN (Reason: sickle cell pain) Qty: 10 0RF Continued methylphenidate HCl 10 mg tablet 10 mg PO DAILY@1500 Rx Instructions: daily at home folic acid 1 mg tablet 1 mg PO DAILY montelukast 10 mg tablet 10 mg PO DAILY fluticasone propionate 50 mcg/actuation spray,suspension 2 spray INTRANASAL DAILY PRN (Reason: allergies) albuterol sulfate 90 mcg/actuation HFA aerosol inhaler 2 puff INHALATION Q6H PRN (Reason: Shortness Of Breath Or Wheezing) fexofenadine 180 mg Tablet 180 mg PO DAILY omeprazole 40 mg capsule,delayed release(DR/EC) 40 mg PO DAILY oxycodone 5 mg Tablet 5 mg PO Q6H PRN (Reason: severe pain (scale score 7-10)) Qty: 20 0RF methylphenidate HCl 54 mg Tablet Extended Release 24hr 54 mg PO QAM Discharge Orders: Discharge Order (Routine); Ordered 11/03/23 Ordered By: Zander Puga Admission Data Admit Date/Time: 11/01/23 23:31 Attending Provider: Zander Puga Admit Provider: Paco Perez Primary Care Provider: [facility] Other Providers: Paco Perez; Jo Hidalgo
== END 2023-11-03 13:46 | disposition home or self-care (01) | DRG 812 ==
LOC: ED 17:49 → 2N 23:31